=== PATIENT | male | born 1960 | race Caucasian/White ===

== ENCOUNTER 2019-08-18 06:23 | Emergency (ER) | payer OTHER ==
[2019-08-18] MEDS ORDERED: predniSONE 20 MG TABLET (UD) PO ONE (06:29)
--- NOTE | 2019-08-18 06:43 | PDOC ---
History of Present Illness - General Stated Complaint: DIFFICULTY BREATHING - History of Present Illness Initial Comments: The pt is a 59M w/ a history of COPD, CAD s/p stent, HTN, HLD who presents for evaluation of 30-40 minutes of difficulty breathing. He tried using his Ventolin inhaler this morning with little relief and decided to call EMS. They administered 1 duo-neb in the field w/ subsequent improvement. Currently the pt states he feels close to his baseline. He denies recent fevers/chills, chest pain, vision changes, LOBO, sensation changes, N/V Pt reports previous cardiac event requiring stent but his symptoms today do not feel nearly as severe as that occurrence. 08/18/19 06:31 Past History - Past Medical History Allergies/Adverse Reactions: Allergies Allergy/AdvReac Type Severity Reaction Status Date / Time No Known Allergies Allergy Verified 12/06/15 12:07 Home Medications: Ambulatory Orders Amlodipine Besylate [Norvasc -] 0 mg PO DAILY 12/06/15 Atorvastatin Calcium 0 mg PO HS 12/06/15 Olmesartan Medoxomil [Benicar -] 0 mg PO HS 12/06/15 Oxycodone HCl/Acetaminophen [Percocet 5-325 mg Tablet] 1 - 2 tab PO Q6H #20 tab MDD 4 12/06/15 levoFLOXacin [Levaquin -] 500 mg PO DAILY #14 tablet 12/06/15 metroNIDAZOLE [Flagyl -] 500 mg PO TID #30 tablet 12/06/15 Asthma: Yes Cardiac Disorders: Yes (mi) COPD: Yes HTN: Yes Hypercholesterolemia: Yes - Surgical History Cardiac Surgery: Yes (stent) - Immunization History Td Vaccination: Yes Immunization Up to Date: Yes - Psycho Social/Smoking Cessation Hx Smoking Status: Yes Smoking History: Current some day smoker Years of Tobacco Use: 40 Have you smoked in the past 12 months: Yes Number of Cigarettes Smoked Daily: 20 Cigars Per Day: 0 'Breaking Loose' booklet given: 08/14/12 Hx Alcohol Use: No Drug/Substance Use Hx: No Substance Use Type: None Hx Substance Use Treatment: No Review of Systems - Review of Systems Able to Perform ROS?: Yes Comments:: GENERAL/CONSTITUTIONAL: No fever or chills. No weakness HEAD, EYES, EARS, NOSE AND THROAT: No change in vision. No change in hearing. No sore throat CARDIOVASCULAR: +SOB; denies CP RESPIRATORY: Denies cough, hemoptysis GASTROINTESTINAL: No nausea, vomiting, diarrhea or constipation GENITOURINARY: No dysuria, frequency, or change in urination MUSCULOSKELETAL: No joint or muscle swelling or pain. No neck or back pain SKIN: No rash NEUROLOGIC: No headache, vertigo, loss of consciousness, or change in strength/ sensation ENDOCRINE: No increased thirst. No abnormal weight change HEMATOLOGIC/LYMPHATIC: No anemia, easy bleeding, or history of blood clots ALLERGIC/IMMUNOLOGIC: No hives or skin allergy 08/18/19 06:43 Is the patient limited Maldivian proficient: No *Physical Exam - Physical Exam GENERAL: Awake, alert, and oriented to person/place/time, in no acute distress HEAD: No signs of trauma, normocephalic, atraumatic EYES: PERRLA, EOMI, sclera anicteric, conjunctiva clear ENT: Hearing grossly normal, nares patent, oropharynx clear without exudates. Moist mucosa LUNGS: No distress, speaks in full sentences, mild b/l wheeze appreciated HEART: Regular rate and rhythm, normal S1 and S2, no murmurs appreciated, peripheral pulses normal and equal bilaterally ABDOMEN: Soft, nontender, normoactive bowel sounds. No guarding, no rebound EXTREMITIES: Normal inspection, Normal range of motion, no edema. No clubbing or cyanosis NEUROLOGICAL: Cranial nerves II through XII grossly intact. Normal speech, normal gait, no focal sensorimotor deficits SKIN: Warm, Dry 08/18/19 06:44 ED Treatment Course - LABORATORY CBC & Chemistry Diagram: 08/18/19 06:40 08/18/19 06:40 Medical Decision Making - Medical Decision Making The pt is a 59M w/ a history of COPD, CAD s/p stent (ASA), HTN, HLD who presents for evaluation of a COPD exacerbation ED Course Pt agreed to 1 set of labs and an ECG to evaluate ACS Will give duo-neb x2 and Prednisone 08/18/19 06:45 No anemia No leukocytosis 08/18/19 06:57 ECG and Trop pending Pt signed out to Dr. Huizar 08/18/19 07:05 Discharge - Discharge Information Problems reviewed: Yes Clinical Impression/Diagnosis: COPD exacerbation Condition: Improved - Admission No - Follow up/Referral Referrals: Edis Farmer MD [Staff Physician] - - Patient Discharge Instructions Patient Printed Discharge Instructions: DI for Chronic Obstructive Pulmonary Disease - Post Discharge Activity Work/Back to School Note: Back to Work
--- NOTE | 2019-08-18 06:47 | PDOC ---
Attending Attestation - Resident Resident Name: Rei Pena - ED Attending Attestation I have performed the following: I have examined & evaluated the patient, The case was reviewed & discussed with the resident, I agree w/resident's findings & plan, Exceptions are as noted - HPI HPI: 08/18/19 06:43 59 years old with past medical history significant for hypertension high cholesterol COPD active tobacco presents to the emergency department with COPD exacerbation not relieved by home nebs Called EMS received 1 DuoNeb in the field upon arrival to the emergency department does feel better still slightly wheezing Symptoms are mild to moderate persistent constant no exacerbating or alleviating factors Insert my ROS statement - Physicial Exam PE: 08/18/19 06:44 Vitals: Triage Vital signs reviewed General Appearance: No acute distress, well nourished well developed, Head: Atraumatic, Neck: Supple; no Nucal rigidity Chest Wall: Nontender Cardiac: Regular rate and rhythym, no murmurs, no rubs, no gallops, Lungs: End expiratory wheeze bilaterally Abdomen: Soft, non distended, normal bowel sounds, non tender to palpation Extremities: Full range of motion to all extremities, no cyanosis, clubbing, or edema Skin: Warm and dry, no rashes or lesions, no rash, no petechiae Psych: Normal mood, normal affect - Medical Decision Making 08/18/19 06:46 History and examination consistent with COPD exacerbation and active smoker however patient states the last time that he had severe shortness of breath ended up requiring a stent Patient had no chest pain this time symptoms were not nearly as severe his wheezing and shortness of breath have almost completely resolved Low suspicion for ACS but given patient's history will check EKG troponin duo nebs prednisone observe and reassess Dr. Maldonado to follow-up labs EKG and reevaluate patient.
[2019-08-18] MEDS ORDERED: predniSONE 20 MG TABLET (UD) ONE (06:49)
[2019-08-18] MEDS ORDERED: ALBUTEROL SO4 2.5/IPRATROPIUM 0.5 INH SOL 3 ML VIAL.NEB. NEB ONE (06:49)
[2019-08-18 06:50] LABS: BASO % 0.9 % (0-2.0); EOS % 5.1 % (0-4.5); HEMATOCRIT 36.7 % (35.4-49); HEMOGLOBIN 12.1 GM/dL (11.7-16.9); LYMPH % 19.7 % (8-40); MCH 28.9 pg (25.7-33.7); MCHC 32.9 g/dl (32.0-35.9); MEAN CELL VOLUME 87.8 fl (80-96); MEAN PLT VOLUME 7.3 fl (7.5-11.1); MONO % 5.6 % (3.8-10.2); NEUT % 68.7 % (42.8-82.8); PLATELET COUNT 313 K/MM3 (134-434); RBC 4.18 M/mm3 (4.00-5.60); RDW 14.8 % (11.9-15.9); WHITE BLOOD COUNT 7.5 K/mm3 (4.0-10.0)
[2019-08-18] MEDS: ALBUTEROL SO4 2.5/IPRATROPIUM 0.5 INH SOL 3 ML VIAL.NEB. NEB SCH ×2 (06:55→07:05)
[2019-08-18 07:25] LABS: ALBUMIN 3.5 g/dl (3.4-5.0); BILIRUBIN,TOTAL 0.2 mg/dL (0.2-1); BLOOD UREA NITROGEN 14.1 mg/dL (7-18); CALCIUM 8.3 mg/dL (8.5-10.1); CREATININE 0.9 mg/dL (0.55-1.3); TOT PROT 6.7 g/dl (6.4-8.2)
[2019-08-18 07:40] VITALS: BP 134/63; PULSE 83; TEMP 97.8; BMI 25.8
--- NOTE | 2019-08-18 07:43 | PDOC ---
*Physical Exam - Vital Signs Last Vital Signs Temp Pulse Resp BP Pulse Ox 97.8 F 83 18 134/63 96 08/18/19 06:46 08/18/19 06:46 08/18/19 06:46 08/18/19 06:46 08/18/19 06:46 ED Treatment Course - LABORATORY CBC & Chemistry Diagram: 08/18/19 06:40 08/18/19 06:40 - ADDITIONAL ORDERS Additional order review: Laboratory Results 08/18/19 08/18/19 06:40 06:39 Sodium 140 Potassium 4.0 Chloride 108 H Carbon Dioxide 26 Anion Gap 6 L BUN 14.1 Creatinine 0.9 Est GFR (CKD-EPI)AfAm 106.46 Est GFR (CKD-EPI)NonAf 91.86 Random Glucose 122 H Calcium 8.3 L Total Bilirubin 0.2 AST 17 ALT 22 Alkaline Phosphatase 99 Troponin I < 0.02 Total Protein 6.7 Albumin 3.5 08/18/19 06:40 RBC 4.18 MCV 87.8 MCHC 32.9 RDW 14.8 MPV 7.3 L Neutrophils % 68.7 Lymphocytes % 19.7 Monocytes % 5.6 Eosinophils % 5.1 H Basophils % 0.9 - Medications Given in the ED: ED Medications Discontinued Medications Generic Name Dose Route Start Last Admin Trade Name Freq PRN Reason Stop Dose Admin Albuterol/Ipratropium 1 amp 08/18/19 06:30 08/18/19 07:05 Duoneb - NEB 08/18/19 06:46 1 amp Q15M KUSHAL Administration Prednisone 40 mg 08/18/19 06:29 08/18/19 06:55 Deltasone - PO 08/18/19 06:30 40 mg ONCE ONE Administration Discharge - Discharge Information Clinical Impression/Diagnosis: COPD exacerbation Condition: Improved Disposition: HOME - Follow up/Referral Referrals: Edis Farmer MD [Staff Physician] - - Patient Discharge Instructions Patient Printed Discharge Instructions: DI for Chronic Obstructive Pulmonary Disease Additional Instructions: You were seen in the ER for shortness of breath You had labwork which was negative and you have a prescription for a steroid course Follow up with your Family Doctor within 1 week. Return to the ER if you experience worsening shortness of breath, chest pain, fevers or any other concerning symptoms. - Post Discharge Activity Work/Back to School Note: Back to Work
--- NOTE | 2019-08-18 10:04 | EKG ---
Test Reason : Blood Pressure : / mmHG Vent. Rate : 078 BPM Atrial Rate : 078 BPM P-R Int : 180 ms QRS Dur : 080 ms QT Int : 386 ms P-R-T Axes : 060 072 075 degrees QTc Int : 440 ms SINUS RHYTHM WITH PREMATURE ATRIAL COMPLEXES OTHERWISE NORMAL ECG WHEN COMPARED WITH ECG OF 06-DEC-2013 17:07, PREMATURE ATRIAL COMPLEXES ARE NOW PRESENT Confirmed by VIOLETTA GERBER MD ([id number]) on 08/18/2019 10:04:10 AM Referred By: Confirmed By:VIOLETTA GERBER MD
== END 2019-08-18 07:55 | disposition home or self-care (01) ==
LOC: JER 06:23
PROC: 3E0F7GC Introduction of Other Therapeutic Substance into Respiratory Tract, Via Natural or Artificial Opening (ICD-10-PCS; principal; 2019-08-18)
DX: J44.1 Chronic obstructive pulmonary disease with (acute) exacerbation (principal); I25.10 Atherosclerotic heart disease of native coronary artery without angina pectoris; I10 Essential (primary) hypertension; Z95.5 Presence of coronary angioplasty implant and graft; I25.2 Old myocardial infarction; E78.5 Hyperlipidemia, unspecified; E78.00 Pure hypercholesterolemia, unspecified; J45.998 Other asthma; F17.210 Nicotine dependence, cigarettes, uncomplicated; Z79.82 Long term (current) use of aspirin
CPT/HCPCS: 36415; 80053; 84484; 85025; 93005; 93010; 99283-25

== ENCOUNTER 2020-03-17 04:29 | Day surgery (SDC) | payer OTHER ==
[2020-03-15 17:26] VITALS: BMI 26.2
--- NOTE | 2020-03-16 17:28 | PREOP ---
DATE OF ADMISSION: 03/17/2020 ADMISSION DIAGNOSIS: Chronic so sinusitis with polyps, anosmia, and deviated nasal septum. HISTORY OF PRESENT ILLNESS: This 60-year-old male has had a long history of nasal sinus problems. He has undergone previous sinus surgery many years ago. He has had recurrence and now has obstruction, discomfort, drainage, and anosmia. Examination demonstrated deviation of the septum and marked nasal polyposis. He is now admitted for surgery. PAST MEDICAL HISTORY: Primary medical doctor is Dr. Aleksey Davila. He does have a history of COPD, high blood pressure and coronary artery disease. 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 He does smoke intermittently. He is on aspirin chronically, but he stopped this prior to surgery. ALLERGIES TO MEDICATIONS: None known. PRESENT MEDICATIONS: Include amlodipine, Advair Diskus, atorvastatin, Benicar, and ProAir p.r.n. PHYSICAL EXAMINATION: GENERAL: Patient is a well developed male in no distress. HEENT: Head is normal. Eyes are clear. Ears are unremarkable. Oral cavity and oropharynx are normal. The nasal septum is intact but deviated primarily to the left side. The nasal cavity shows bilateral nasal polyposis left greater than right with obstruction. DATA: Preoperative labs are pending. COVID-[address] scan of paranasal sinuses demonstrates chronic pansinusitis with polyps as well as deviation of the septum. IMPRESSION: Chronic pansinusitis with polyps and anosmia, deviated septum. PLAN: Endoscopic sinus surgery to address ethmoid maxillaries frontal and sphenoid sinuses, nasal polypectomy, possibly nasal septoplasty under general anesthesia. INFORMED CONSENT: Patient understands the indications, alternatives, nature of risks and benefits of proposed surgery, potential complications including but not limited to anesthesia, bleeding, infection, recurrence, numbness, hole in the septum, reduced sense of smell, eye injury or brain injury were discussed in detail. He understands and accepts these risks and wished to proceed with surgery. Questions answered fully. IRON DOUGLAS M.D. KATTY/[id number]
[2020-03-17] MEDS ORDERED: ONDANSETRON 4 MG/2 ML VIAL IVPUSH PRN (09:17)
[2020-03-17] MEDS ORDERED: ACETAMINOPHEN 325 MG TABLET (FP) PO PRN (09:17)
[2020-03-17] MEDS ORDERED: oxyCODONE HCL 5 MG TABLET PO PRN (09:17)
[2020-03-17] MEDS ORDERED: LIDOCAINE 1%/EPI 1:100000 (20 ML MULTI DOSE VIAL) ONE (09:18)
--- NOTE | 2020-03-17 09:36 | HP ---
History & Physical Update - History History: No Change - Physical Physical: No Change - Assessment Assessment: No Change - Plan Plan: No Change
[2020-03-17] MEDS ORDERED: PROPOFOL 20 ML ONE ×2 (09:37→10:10)
[2020-03-17] MEDS ORDERED: ceFAZolin SODIUM 1 GM VIAL ONE (10:01)
[2020-03-17] MEDS ORDERED: ceFAZolin SODIUM 1 GM VIAL IVPB ONE (10:03)
[2020-03-17] MEDS ORDERED: COCAINE HCL 4% TOPICAL SOLUTION 4 ML BOTTLE TP ONE (10:05)
[2020-03-17] MEDS ORDERED: LIDOCAINE 1%/EPI 1:100000 (20 ML MULTI DOSE VIAL) INF ONE ×2 (10:06)
[2020-03-17] MEDS ORDERED: HYDROmorphone HCl 2 MG/ML VIAL ONE (10:25)
[2020-03-17] MEDS ORDERED: DESFLURANE GAS 240 ML BOTTLE IH ONE (10:32)
[2020-03-17] MEDS ORDERED: DEXAMETHASONE SOD PHOSPHATE 4 MG/1 ML VIAL ONE ×2 (10:35→10:36)
[2020-03-17] MEDS ORDERED: BACITRACIN 15 GM TUBE TOPICAL OINTMENT ONE (11:41)
--- NOTE | 2020-03-17 12:13 | OP ---
Operative Note - Note: Operative Date: 03/17/20 ([id number]) Pre-Operative Diagnosis: chronic pansinusitis with polyposis, anosmia, nasal septal deviation Operation: bilateral endoscopic ethmoidectomy, anterior/posterior, bilateral endoscopic maxillary antrostomy with removal of tissue, bilateral endoscopic frontal sinus exploration, bilateral endoscopic sphenoidotomy,image guidance Findings: chronic pansinusitis with polyps deviated septum to left synechia right middle turbinate to septum, right middle turbinate to inferior turbinate after polypectomy markedly improved left nasal airway even with deviated septum, septoplasty deferred in PACU EOMI, conjunctivae clear Implants: none Post-Operative Diagnosis: Same as Pre-op Surgeon: Azeem Chavez Anesthesiologist/ROTATING FIELD ASSEMBLER: Farida Louise Anesthesia: General Specimens Removed: left nasal polyp and ethmoid tissue. right nasal polyp and ethmoid tissue. right and left ethmoid tissue (suction trap, from microdebrider) Estimated Blood Loss (mls): 30 Blood Volume Replaced (mls): 0 Fluid Volume Replaced (mls): 800 Operative Report Dictated: Yes
[2020-03-17] MEDS ORDERED: ONDANSETRON 4 MG/2 ML VIAL ONE (12:49)
[2020-03-17] MEDS ORDERED: oxyCODONE HCL 5 MG TABLET ONE (13:37)
--- NOTE | 2020-03-17 13:58 | OP ---
DATE OF OPERATION: 03/17/2020 PREOPERATIVE DIAGNOSIS: Chronic pansinusitis with polyposis and anosmia, nasal septal deviation. POSTOPERATIVE DIAGNOSIS: Chronic pansinusitis with polyposis and anosmia, nasal septal deviation. PROCEDURE: 1. Bilateral endoscopic ethmoidectomy anterior and posterior. 2. Bilateral endoscopic maxillary antrostomy with removal of tissue. 3. Bilateral endoscopic frontal sinus exploration. 4. Bilateral endoscopic sphenoidotomy. 5. Image guidance. SURGEON: Iron Chavez MD ANESTHESIOLOGIST: Farida Louise, REF-DO ANESTHESIA: General via endotracheal tube. INDICATIONS: This 60-year-old male has had a long history of nasal and sinus problems. He had previous surgery. For many years he has had nasal obstruction, altered sense of smell and drainage. He also has sinus pressure and intermittent infections. He had been treated with numerous antibiotics as well as oral steroids and topical steroid medications. Examination demonstrates bilateral nasal polyps and deviation of the septum. CT scan demonstrates chronic pansinusitis with polyposis. He is now brought to surgery for treatment. FINDINGS: Chronic pansinusitis with polyposis, deviated septum to the left. PROCEDURE: Patient was brought to the operating room and placed on the operating table in the supine position. General endotracheal anesthesia was induced to a satisfactory level. He was prepped and draped in the usual fashion for surgery. His CT scan data was uploaded to the [employer] image guidance system. He was registered and image guidance was used intermittently throughout the case to identify anatomic position and guide dissection. Lidocaine 1% with epinephrine 1:100,000 was infiltrated in the nasal septum. Cocaine 4% was placed within the nasal cavities for decongestion. Nasal endoscopy was performed with a 0-degree telescope. The nasal septum had deviation to the left. Significant nasal polyposis was seen in both middle meatuses as well as both inferior nasal cavities especially posterior. The nasopharynx was visualized and was patent. An adenoidectomy scar was present. No pus was seen on either side. Lidocaine 1% with epinephrine 1:100,000 was infiltrated into the middle meatal polyps as well as lateral nasal martinez and middle turbinates. Additional cocaine 4% was packed within the middle meatuses. The left paranasal sinuses were first addressed. Middle meatal polyps were removed with the ethmoid forceps. Significant polypoid change at the middle turbinate was identified. Careful dissection was used with the [employer] microdebrider with guidance. Anterior ethmoidectomy was first performed followed by posterior ethmoidectomy. The lamina papyracea and the fovea ethmoidalis were preserved. The face of the sphenoid was encountered. Dissection then went toward the natural ostium of the sphenoid which was then entered and enlarged. Thick mucus was found, but no pus. Next, the additional tissue was removed to create a left middle meatal antrostomy. Thick mucus was suctioned. Finally, the left frontal recess was explored. The 70-degree telescope and giraffe forceps were used to remove polypoid tissue from the frontal recess. The frontal ostium was identified. The frontal seeker was passed into the frontal sinus and its position confirmed by image guidance. Attention was then turned toward the right paranasal sinuses. Again, the middle meatal polyps were removed. Polypoid change was also identified on the middle meatus and this was shaved down. Additional polyps in the inferior nasal cavity and from the sphenoid recess were removed. Ethmoidectomy was then performed with the [employer] microdebrider. Anterior and then posterior ethmoidectomy was performed. Again, the lamina papyracea and the fovea ethmoidalis were preserved. The face of the sphenoid sinus was identified. Dissection then went toward the natural ostium which was then identified and enlarged with the microdebrider. Thick mucus was found, but no pus. Moving more anteriorly the frontal recess was then addressed. This was visualized with the 70-degree scope and dissection performed with the 70-degree giraffe forceps. The frontal recess was opened and the suction tip could be passed through the ostium into the right frontal sinus, again confirmed by image guidance. Finally, the right maxillary sinus was addressed. Tissue was removed from the middle meatus and an antrostomy was created. Thick mucus was aspirated, but again no pus was identified. Final inspection demonstrated open ethmoid, sphenoid, frontal and maxillary sinuses. Minimal oozing was noted. The nasal septum, although septal deviation was present, was left untouched. Significant improvement in the left nasal airway has been accomplished by polypectomy and there were both inferior and superior airways that were now patent. NasoPore dressings were placed in each ethmoid sinus. Folded Telfa gauze coated with antibiotic ointment and joined with a silk suture was placed in the inferior nasal cavities. A throat pack placed at the beginning of the case was removed. Stomach was suctioned of a small amount of fluid. Patient tolerated the procedure well. He was then awakened from general anesthesia and transferred to the PACU in stable condition. Estimated blood loss was 30 mL. He received crystalloid during the procedure. Specimens include left nasal polyp and ethmoid tissue, right nasal poly and ethmoid tissue and right and left ethmoid tissue from suction trap. There were no complications. Ocular examination in the PACU showed full extraocular movements and clear conjunctivae. IRON CHAVEZ M.D. KATTY/[id number]
[2020-03-17 14:14] VITALS: BP 135/71; PULSE 80; TEMP 97.3
--- NOTE | 2020-03-19 17:12 | PATH ---
Surgical Pathology Report Patient Name: TISH YANG [facility]. Rec. #: [id number] /Age/Gender: 1960 (Age: 60) / M Account: [id number] Location: [facility] SURGICAL Taken: 03/17/2020 Received: 03/17/2020 Reported: 03/19/2020 Physicians: Azeem Chavez M.D. Specimen(s) Received A: LEFT NASAL POLYP AND ETHMOID TISSUE B: RIGHT NASAL POLYP AND ETHMOID TISSUE C: RIGHT AND LEFT ETHMOID TISSUE Clinical History Deviated septum, chronic maxillary sinusitis Final Diagnosis A. LEFT NASAL POLYP AND ETHMOID TISSUE, EXCISION: INFLAMMATORY POLYPS. CHRONIC SINUSITIS. PORTIONS OF BONE WITH NO SIGNIFICANT PATHOLOGIC CHANGE. B. RIGHT NASAL POLYPS AND ETHMOID TISSUE, EXCISION: INFLAMMATORY POLYPS. CHRONIC SINUSITIS. C. RIGHT AND LEFT ETHMOID TISSUE, EXCISION: CHRONIC SINUSITIS. SEPARATE FRAGMENTS OF INFLAMMATORY POLYP. Electronically Signed Nirmal Elliott M.D. Gross Description A. Received in formalin labeled "left nasal polyp and ethmoid tissue," is a 4.0 x 3.3 x 0.3 cm aggregate of multiple manrique, irregular to polypoid portions of soft tissue admixed with cartilage, possible bone and blood clot. The specimen is entirely submitted in 3 cassettes as follows: 1-2-soft tissue; 3-cartilage and possible bone, following decalcification. B. Received in formalin labeled "right nasal polyp and ethmoid tissue," is a 1.8 x 1.4 x 0.3 cm aggregate of multiple manrique, irregular to polypoid portions of soft tissue. The specimen is entirely submitted in one cassette. C. Received in formalin labeled "right and left ethmoid tissue," is a 3.5 x 2.8 x 0.3 cm aggregate of manrique soft tissue fragments admixed with blood clot. A bilingual sales representative portion is submitted in one cassette. 03/18/2020 [facility]03/18/2020
== END 2020-03-17 14:10 | disposition home or self-care (01) ==
LOC: JASU-SURG 04:29
PROVIDERS: ATTEND Otolaryngology
PROC: 09CW8ZZ Extirpation of Matter from Right Sphenoid Sinus, Via Natural or Artificial Opening Endoscopic (ICD-10-PCS; 2020-03-17)
PROC: 09BM8ZZ Excision of Nasal Septum, Via Natural or Artificial Opening Endoscopic (ICD-10-PCS; 2020-03-17)
PROC: 09CX8ZZ Extirpation of Matter from Left Sphenoid Sinus, Via Natural or Artificial Opening Endoscopic (ICD-10-PCS; principal; 2020-03-17 10:00)
DX: J32.4 Chronic pansinusitis (principal); J34.2 Deviated nasal septum; J33.9 Nasal polyp, unspecified; R43.0 Anosmia; I10 Essential (primary) hypertension; I25.10 Atherosclerotic heart disease of native coronary artery without angina pectoris; J44.9 Chronic obstructive pulmonary disease, unspecified; Z95.5 Presence of coronary angioplasty implant and graft
CPT/HCPCS: 88304-TC; 88311-TC; 94760

== ENCOUNTER 2020-05-31 04:29 | Day surgery (SDC) | payer OTHER ==
--- OUTSIDE RECORDS SUMMARY | 2020-05-21 15:54 | XMS ---
:1960 Author Organization [facility] Support Name Relationship Address Phone YEIMY FITCH Unavailable [address] [place] [address] SIVA NAJERA [address] [facility] [phone] [place] [address] Re-disclosure Warning The records that you are about to access may contain information from federally- assisted alcohol or drug abuse programs. If such information is present, then the following federally mandated warning applies: This information has been disclosed to you from records protected by federal confidentiality rules (42 CFR part 2). The federal rules prohibit you from making any further disclosure of this information unless further disclosure is expressly permitted by the written consent of the person to whom it pertains or as otherwise permitted by 42 CFR part 2. A general authorization for the release of medical or other information is NOT sufficient for this purpose. The Federal rules restrict any use of the information to criminally investigate or prosecute any alcohol or drug abuse patient.The records that you are about to access may contain highly sensitive health information, the redisclosure of which is protected by Article 27-F of the [facility] Public Health law. If you continue you may haveaccess to information: Regarding HIV / AIDS; Provided by facilities licensed or operated by the [facility] Office of Mental Health; or Provided by the [facility] Office for People With Developmental Disabilities. If such information is present, then the following [facility] mandated warning applies: This information has been disclosed to you from confidential records which are protected by state law. State law prohibits you from making any further disclosure of this information without the specific written consent of the person to whom it pertains, or as otherwise permitted by law. Any unauthorized further disclosure in violation of state law may result in a fine or prison sentence or both. A general authorization for the release of medical or other information is NOT sufficient authorization for further disclosure. Insurance Providers Payer name Policy type Policy ID Covered Covered green party's Policy P blanie / Coverage green party ID relationship to [facility] [employer] ormation type jerome [place] [id number] [address] [facility] [id number] 2 HEALTH PLANS Results ID Date Data Source [id number] 2020 08:15:00 AM EDT [facility] Name Value Range Interpretation Description Data Sup porting Code Source(s) Document(s ) SARS [facility] coronavirus 2 RNA This lab was ordered by [facility] and reported by [facility]. ID Date Data Source [id number] 11/07/2019 12:00:00 AM EDT [facility] Name Value Range Interpretation Code Description Data Gege rce(s) Supporting Document(s ) [facility] XXX MARY+probe- Imp This lab was ordered by [facility] and reported by [employer] [facility]. Procedure
[2020-05-28 10:34] VITALS: BMI 25.8
--- OUTSIDE RECORDS SUMMARY | 2020-05-31 04:32 | XMS ---
:[address] [facility] Support Name Relationship Address Phone BKD Unavailable [address] [place] [address] YEIMY TROPER Unavailable [address] [place] [address] SIVA NAJERA [address] [facility] [place] [address] Re-disclosure Warning The records that you are [...] is protected by Article [address]-F of the [facility] Public Health law. If you continue you may haveaccess to information: Regarding HIV / AIDS; Provided by facilities licensed or operated by the [facility] Office of Mental Health; or Provided by the [facility] Office for People With Developmental Disabilities. If such information is present, then the following [facility] mandated warning applies: This information has been [...] law may result in a fine or senior care sentence or both. A general authorization for the release of medical or other information is NOT sufficient authorization for further disclosure. Insurance Providers Payer name Policy type Policy ID Covered Covered green party's Policy P blaine / Coverage green party ID relationship to [facility] Inf ormation type jerome [place] [id number] S [id number] [address] [facility] [id number] 2 HEALTH PLANS Results ID Date Data Source [id number] 05/27/2020 04:45:00 PM EDT [facility] Name Value Range Interpretation Description Data Sup porting Code Source(s) Document(s ) SARS [facility] coronavirus 2 RNA This lab was ordered by [facility] and reported by [facility]. ID Date Data Source [id number] 2020 08:15:00 AM EDT [facility] Name Value Range Interpretation Description Data Sup porting Code Source(s) Document(s ) SARS [facility] coronavirus 2 RNA This lab was ordered by [facility] and reported by [facility]. ID Date Data Source [id number] 11/07/2019 12:00:00 AM EDT [facility] Name Value Range Interpretation Code Description Data Gege rce(s) Supporting Document(s ) 2019-nCoV [facility] RNA XXX MARY+probe- Imp This lab was ordered by [facility] and reported by [employer] Procedure
[2020-05-31] MEDS ORDERED: MIDAZOLAM HCL 2 MG/2 ML SINGLE DOSE VIAL ONE ×2 (10:41→11:13)
[2020-05-31] MEDS ORDERED: PROPOFOL 20 ML ONE (11:14)
--- NOTE | 2020-05-31 12:01 | OP ---
Operative Note - Note: Operative Date: 05/31/20 Pre-Operative Diagnosis: Lt renal stone Operation: Left ESWL Findings: 7 mm mid pole Leftb renal stone Post-Operative Diagnosis: Same as Pre-op Surgeon: Jose May Anesthesia: Regional Estimated Blood Loss (mls): 0 Operative Report Dictated: Yes
[2020-05-31 12:53] VITALS: TEMP 97.3
[2020-05-31 12:57] VITALS: BP 120/64; PULSE 81
--- NOTE | 2020-05-31 19:01 | OP ---
DATE OF OPERATION: 05/31/2020 PREOPERATIVE DIAGNOSIS: Left renal stone. POSTOPERATIVE DIAGNOSIS: Left renal stone. PROCEDURE: Left extracorporeal shockwave lithotripsy. ATTENDING: Jeanie May M.D. ANESTHESIA: Fractional. DESCRIPTION OF PROCEDURE: Patient was brought in the operating room, placed in a supine position on the operating room table. Ultrasonography and fluoroscopy were performed. A 7-mm left mid pole stone was identified. Anesthesia and preoperative antibiotics were then administered. Shockwave lithotripsy was then performed. 2500 impulses at 17 joules of power were administered to the stone with excellent fragmentation of the stone noted under realtime ultrasonography and fluoroscopy. JEANIE GARCIA M.D. [id number]
== END 2020-05-31 13:10 | disposition home or self-care (01) ==
LOC: JASU-SURG 04:29
PROVIDERS: ATTEND Urology
PROC: 0TF4XZZ Fragmentation in Left Kidney Pelvis, External Approach (ICD-10-PCS; principal; 2020-05-31 11:00)
DX: N20.0 Calculus of kidney (principal)

== ENCOUNTER 2020-11-15 04:43 | Day surgery (SDC) | payer OTHER ==
[2020-11-10 13:44] VITALS: BMI 25.8
[2020-11-15] MEDS ORDERED: LIDOCAINE HCL/PF 2% SDV 5ML VIAL ONE (09:27)
[2020-11-15] MEDS ORDERED: PROPOFOL 20 ML ONE (09:27)
[2020-11-15] MEDS ORDERED: MIDAZOLAM HCL 2 MG/2 ML SINGLE DOSE VIAL ONE (09:27)
[2020-11-15] MEDS ORDERED: ALBUTEROL SO4 HFA INHALER IH ONE (09:45)
[2020-11-15] MEDS ORDERED: GENTAMICIN SO4 80 MG/2 ML VIAL ONE (09:45)
[2020-11-15] MEDS ORDERED: GENTAMICIN 80MG PREMIX BAG IVPB ONE (09:50)
[2020-11-15] MEDS ORDERED: ceFAZolin SODIUM 1 GM VIAL IVPB ONE (09:50)
[2020-11-15] MEDS ORDERED: oxyCODONE HCL 5 MG TABLET PO PRN ×2 (10:51)
[2020-11-15] MEDS ORDERED: ONDANSETRON 4 MG/2 ML VIAL IVPUSH PRN (10:51)
[2020-11-15] MEDS ORDERED: LACTATED RINGERS SOLUTION 1,000 ML IV SCH (11:00)
[2020-11-15 14:46] VITALS: BP 128/70; PULSE 65; TEMP 98
== END 2020-11-15 14:48 | disposition home or self-care (01) ==
LOC: JASU-SURG 04:43
PROVIDERS: ATTEND Urology
PROC: 0T7D8ZZ Dilation of Urethra, Via Natural or Artificial Opening Endoscopic (ICD-10-PCS; 2020-11-15)
PROC: BT14YZZ Fluoroscopy of Kidneys, Ureters and Bladder using Other Contrast (ICD-10-PCS; principal; 2020-11-15 09:30)
PROC: BT14YZZ Fluoroscopy of Kidneys, Ureters and Bladder using Other Contrast (ICD-10-PCS; 2020-11-15 09:30)
DX: N32.1 Vesicointestinal fistula (principal); N35.919 Unspecified urethral stricture, male, unspecified site; N13.5 Crossing vessel and stricture of ureter without hydronephrosis
CPT/HCPCS: 76000-TC-FY; 94760

== ENCOUNTER 2020-12-16 20:35 | Emergency (ER) | payer OTHER ==
[2020-12-16 21:06] VITALS: BMI 26.5
[2020-12-16] MEDS ORDERED: LACTATED RINGERS SOLUTION 1000 ML INFUS.BAG IV ONE (22:01)
[2020-12-16] MEDS ORDERED: morphine CARPU-JECT 2 MG/1 ML DISP.SYRIN IVPUSH ONE (23:07)
[2020-12-16 23:10] LABS: BASO % 0.1 % (0-2.0); EOS % 0.1 % (0-4.5); HEMOGLOBIN 10.7 GM/dL (11.7-16.9); LYMPH % 4.6 % (8-40); MCH 29.2 pg (25.7-33.7); MCHC 33.5 g/dl (32.0-35.9); MEAN CELL VOLUME 87.2 fl (80-96); MEAN PLT VOLUME 7.6 fl (7.5-11.1); MONO % 4.5 % (3.8-10.2); NEUT % 90.7 % (42.8-82.8); PLATELET COUNT 195 K/MM3 (134-434); RBC 3.67 M/mm3 (4.00-5.60); RDW 16.4 % (11.9-15.9)
[2020-12-16] MEDS ORDERED: MORPHINE SULFATE 2 MG/ML VIAL ONE (23:12)
[2020-12-16 23:16] LABS: INR 0.96 (0.83-1.09); PROTHROMBIN TIME (PATIENT) 11.8 SEC (9.7-13.0)
[2020-12-16 23:19] LABS: ACTIVATED PTT 25.8 SECONDS (25.2-36.5)
[2020-12-16 23:32] LABS: CALCIUM 8.2 mg/dL (8.5-10.1)
[2020-12-16 23:33] LABS: ALBUMIN 2.8 g/dl (3.4-5.0); BLOOD UREA NITROGEN 37.3 mg/dL (7-18)
[2020-12-16 23:36] LABS: CREATININE 1.3 mg/dL (0.55-1.3)
[2020-12-16 23:38] LABS: BILIRUBIN,TOTAL 0.6 mg/dL (0.2-1); TOT PROT 6.1 g/dl (6.4-8.2)
[2020-12-17 02:03] VITALS: BP 118/72; PULSE 81; TEMP 98.1
== END 2020-12-17 02:05 | disposition home or self-care (01) ==
LOC: JER 20:35
PROC: 3E033NZ Introduction of Analgesics, Hypnotics, Sedatives into Peripheral Vein, Percutaneous Approach (ICD-10-PCS; principal; 2020-12-16)
DX: T83.091A Other mechanical complication of indwelling urethral catheter, initial encounter (principal)
CPT/HCPCS: 36415; 80053; 85025; 85610; 85730; 99284-25

== ENCOUNTER 2021-10-04 01:34 | Inpatient (IN) | payer OTHER ==
[2021-10-04] MEDS ORDERED: KETAMINE HCL 200 MG/20 ML VIAL ONE (01:36)
[2021-10-04] MEDS ORDERED: RAPID SEQUENCE INTUBATION KIT NR ONE (01:36)
[2021-10-04] MEDS ORDERED: KETAMINE HCL 200 MG/20 ML VIAL IVPUSH ONE ×2 (01:42→02:03)
[2021-10-04] MEDS ORDERED: MIDAZOLAM IN 0.9 % SOD.CHLORID 1 MG/1 ML PLAST..BAG ONE (01:42)
[2021-10-04] MEDS ORDERED: ALBUTEROL SO4 2.5/IPRATROPIUM 0.5 INH SOL 3 ML VIAL.NEB. NEB ONE (01:44)
[2021-10-04] MEDS ORDERED: MIDAZOLAM IN 0.9 % SOD.CHLORID 100 MG/100 ML PLAST..BAG IVPB SCH ×3 (01:45→02:21)
[2021-10-04] MEDS ORDERED: FENTANYL NS IVPB 500 MCG/100 ML BAG IVPB SCH ×2 (01:45→01:46)
[2021-10-04] MEDS ORDERED: MAGNESIUM SULF 50% (8.12 MEQ/2 ML-1 GM VIAL) IVPB ONE (01:48)
[2021-10-04] MEDS ORDERED: ROCURONIUM BROMIDE 50 MG/5 ML VIAL IVPUSH ONE (02:03)
[2021-10-04] MEDS ORDERED: MAGNESIUM 1GM/D5W - 1 GM/100 ML IVPB IVPB ONE (02:04)
[2021-10-04 02:05] LABS: BASO % 1.1 % (0-2.0); EOS % 7.9 % (0-4.5); HEMATOCRIT 38.1 % (35.4-49); LYMPH % 23.5 % (8-40); MCH 27.1 pg (25.7-33.7); MCHC 31.5 g/dl (32.0-35.9); MONO % 10.2 % (3.8-10.2); NEUT % 57.3 % (42.8-82.8); PLATELET COUNT 334 10^3/uL (134-434); RBC 4.43 M/mm3 (4.00-5.60); RDW 17.5 % (11.9-15.9); WHITE BLOOD COUNT 11.3 K/mm3 (4.0-10.0)
[2021-10-04] MEDS ORDERED: MIDAZOLAM HCL 2 MG/2 ML SINGLE DOSE VIAL IVPUSH ONE (02:21)
[2021-10-04] MEDS: MIDAZOLAM IN 0.9 % SOD.CHLORID 100 MG/100 ML PLAST..BAG IVPB SCH ×2 (02:38→13:30)
[2021-10-04 02:40] LABS: BLOOD UREA NITROGEN 24.8 mg/dL (7-18); CALCIUM 8.2 mg/dL (8.5-10.1)
[2021-10-04 02:41] LABS: ALBUMIN 3.6 g/dl (3.4-5.0)
[2021-10-04] MEDS ORDERED: MIDAZOLAM HCL 5 MG/1 ML Single Dose Vial IVPUSH ONE (02:42)
[2021-10-04 02:44] LABS: CREATININE 1.3 mg/dL (0.55-1.3)
[2021-10-04 02:45] LABS: TOT PROT 6.4 g/dl (6.4-8.2)
[2021-10-04 02:46] LABS: BILIRUBIN,TOTAL 0.3 mg/dL (0.2-1)
[2021-10-04 02:48] LABS: N-TERMINAL BNP 108.1 pg/ml (5-125)
[2021-10-04] MEDS: FENTANYL NS IVPB 500 MCG/100 ML BAG IVPB SCH ×2 (02:48→09:33)
[2021-10-04 03:18] LABS: INR 0.9 (0.83-1.09); PROTHROMBIN TIME (PATIENT) 10.3 SEC (9.7-13.0)
[2021-10-04] MEDS ORDERED: ALBUTEROL SO4 HFA INHALER IH PRN (03:58)
[2021-10-04 04:03] LABS: ARTERIAL BLD GAS O2 SATURATION 99.5 % (95-98); ARTERIAL BLOOD GAS BASE EXCESS -5.3 mmol/L (-2-2); ARTERIAL BLOOD GAS PO2 287.5 mmHg (80-100)
[2021-10-04 04:16] LABS: ALLENS TEST POSITIVE; ARTERIAL BLOOD GAS pH 7.186 (7.350-7.450); VENT MODE A/C; VENT RATE 16
[2021-10-04 04:29] LABS: EPI CELLS >36 /uL (0-25.1); HYALINE CASTS 7 /uL (0-3.1); PH,URINE 6.5 (5.0-8.0); URINE APPEARANCE CLEAR; URINE BACTERIA 138 /uL (0-1359); URINE BILIRUBIN NEGATIVE (NEGATIVE); URINE COLOR YELLOW; URINE GLUCOSE (UA) NEGATIVE (NEGATIVE); URINE KETONE NEGATIVE (NEGATIVE); URINE LEUK ESTERASE NEGATIVE (NEGATIVE); URINE NITRITE NEGATIVE (NEGATIVE); URINE PROTEIN 3+ (NEGATIVE); URINE RBC 14 /uL (0-23.9); URINE UROBILINOGEN 0.2 mg/dL (0.2-1.0); URINE WBC 11 /uL (0-25.8)
[2021-10-04] MEDS ORDERED: SODIUM CHLORIDE 500 ML IV STA ×2 (04:39→06:51)
[2021-10-04] MEDS ORDERED: LACTATED RINGERS SOLUTION 1,000 ML/1,000 ML INFUS.BAG IV STA (04:57)
[2021-10-04] MEDS ORDERED: LACTATED RINGERS SOLUTION 1,000 ML/1,000 ML INFUS.BAG IV SCH (05:00)
[2021-10-04] MEDS ORDERED: cefTRIAXone SODIUM 1 GM VIAL ONE ×2 (05:30→10:45)
[2021-10-04] MEDS ORDERED: DEXTROSE 5%-WATER - 50 ML IVPB ONE ×2 (05:31→10:45)
[2021-10-04] MEDS: CEFTRIAXONE 1 GM in DEXTROSE 5%-WATER - 50 ML IVPB SCH ×2 (05:32→10:47)
[2021-10-04] MEDS: methylPREDNISolone NA SUCC 40 MG/1 ML VIAL IVPUSH SCH ×4 (05:32→22:05)
[2021-10-04 06:02] LABS: ARTERIAL BLD GAS O2 SATURATION 98.4 % (95-98); ARTERIAL BLOOD GAS BASE EXCESS -4.9 mmol/L (-2-2); ARTERIAL BLOOD GAS PO2 138.4 mmHg (80-100); ARTERIAL BLOOD GAS pH 7.266 (7.350-7.450)
[2021-10-04 06:03] LABS: ALLENS TEST POSITIVE; VENT MODE A/C
[2021-10-04 06:04] LABS: VENT RATE 22
[2021-10-04 07:32] LABS: HEMATOCRIT 34.9 % (35.4-49); MCH 27.1 pg (25.7-33.7); MCHC 31.5 g/dl (32.0-35.9); MEAN CELL VOLUME 85.9 fl (80-96); MEAN PLT VOLUME 8.3 fl (7.5-11.1); PLATELET COUNT 289 10^3/uL (134-434); RBC 4.07 M/mm3 (4.00-5.60); RDW 17.4 % (11.9-15.9); WHITE BLOOD COUNT 13.8 K/mm3 (4.0-10.0)
[2021-10-04 07:50] LABS: CALCIUM 7.8 mg/dL (8.5-10.1)
[2021-10-04 07:51] LABS: BLOOD UREA NITROGEN 26.9 mg/dL (7-18)
[2021-10-04 07:54] LABS: ALBUMIN 3.3 g/dl (3.4-5.0); CREATININE 1.3 mg/dL (0.55-1.3)
[2021-10-04 07:56] LABS: BILIRUBIN,TOTAL 0.3 mg/dL (0.2-1); MAGNESIUM 2.4 mg/dL (1.8-2.4); PHOSPHOROUS 4.8 mg/dL (2.5-4.9)
[2021-10-04] MEDS ORDERED: ALBUTEROL SO4 2.5/IPRATROPIUM 0.5 INH SOL 3 ML VIAL.NEB. NEB SCH (08:00)
[2021-10-04] MEDS: SODIUM CHLORIDE 1,000 ML IV SCH ×2 (08:01→23:00)
[2021-10-04 09:43] LABS: ANISOCYTOSIS 0; HELMET CELLS 0; HOWELL-JOLLY BODIES 0; MACROCYTOSIS 0; OVALOCYTE 0; ROULEAU 0; SICKELED CELLS 0; TARGET CELLS 0; TEAR DROP CELLS 0; TOXIC GRANULATION 0
[2021-10-04 09:55] LABS: NEUT % 12.4 % (42.8-82.8)
[2021-10-04] MEDS ORDERED: ENOXAPARIN NA (PORCINE) 40 MG/0.4 ML DISP.SYRIN SQ SCH (10:00)
[2021-10-04] MEDS ORDERED: SODIUM CHLORIDE 0.9% 500 ML INFUS.BAG IV SCH (10:45)
[2021-10-04] MEDS: MUPIROCIN 2% TOPICAL OINTMENT FOR DECOLONIZATION NS SCH ×2 (10:47→21:43)
[2021-10-04] MEDS: PANTOPRAZOLE SODIUM 40 MG VIAL IVPUSH SCH (10:47)
[2021-10-04] MEDS: CHLORHEXIDINE GLUCONATE 4% CLEANSER FOR DECOLONIZATION TP SCH (21:44)
[2021-10-04] MEDS: ENOXAPARIN NA (PORCINE) 80 MG/0.8 ML DISP.SYRIN SQ SCH (22:04)
[2021-10-05] MEDS: methylPREDNISolone NA SUCC 40 MG/1 ML VIAL IVPUSH SCH ×4 (02:26→22:02)
[2021-10-05 07:02] LABS: HEMATOCRIT 35.3 % (35.4-49); HEMOGLOBIN 11.1 GM/dL (11.7-16.9); MCH 27.5 pg (25.7-33.7); MCHC 31.5 g/dl (32.0-35.9); MEAN CELL VOLUME 87.2 fl (80-96); MEAN PLT VOLUME 8.3 fl (7.5-11.1); PLATELET COUNT 271 10^3/uL (134-434); RBC 4.05 M/mm3 (4.00-5.60); RDW 17.7 % (11.9-15.9); WHITE BLOOD COUNT 10.8 K/mm3 (4.0-10.0)
[2021-10-05] MEDS ORDERED: SODIUM CHLORIDE 1,000 ML IV SCH (07:12)
[2021-10-05 07:19] LABS: CALCIUM 7.5 mg/dL (8.5-10.1)
[2021-10-05 07:20] LABS: BLOOD UREA NITROGEN 40.3 mg/dL (7-18)
[2021-10-05 07:23] LABS: CREATININE 1.3 mg/dL (0.55-1.3)
[2021-10-05 08:10] LABS: SARS-CoV-2 NAA Not Detected (Not Detected)
[2021-10-05] MEDS: ALBUTEROL SO4 2.5/IPRATROPIUM 0.5 INH SOL 3 ML VIAL.NEB. NEB SCH ×4 (08:30→20:00)
[2021-10-05 09:42] LABS: ANISOCYTOSIS 1+; MACROCYTOSIS 0
[2021-10-05] MEDS: FENTANYL NS IVPB 500 MCG/100 ML BAG IVPB SCH (09:45)
[2021-10-05] MEDS ORDERED: SODIUM CHLORIDE 100 ML IVPB ONE (10:09)
[2021-10-05] MEDS: PANTOPRAZOLE SODIUM 40 MG VIAL IVPUSH SCH (10:19)
[2021-10-05] MEDS: CEFTRIAXONE 2 GM in SODIUM CHLORIDE 100 ML IVPB SCH (10:19)
[2021-10-05] MEDS: SODIUM ZIRCONIUM CYCLOSILICATE (LOKELMA) 5 GM PACKET PO SCH (10:19)
[2021-10-05] MEDS: ENOXAPARIN NA (PORCINE) 80 MG/0.8 ML DISP.SYRIN SQ SCH ×2 (10:20→22:56)
[2021-10-05] MEDS: MUPIROCIN 2% TOPICAL OINTMENT FOR DECOLONIZATION NS SCH ×2 (10:20→22:56)
[2021-10-05] MEDS: AZITHROMYCIN IVPB 500 MG/250 ML BAG IVPB SCH (10:26)
[2021-10-05 10:57] LABS: ARTERIAL BLD GAS O2 SATURATION 81.9 % (95-98); ARTERIAL BLOOD GAS BASE EXCESS -7.2 mmol/L (-2-2); ARTERIAL BLOOD GAS pH 7.232 (7.350-7.450)
[2021-10-05 11:01] LABS: ALLENS TEST POSITIVE
[2021-10-05 11:03] LABS: VENT MODE A/C; VENT RATE 16
[2021-10-05] MEDS: MIDAZOLAM IN 0.9 % SOD.CHLORID 100 MG/100 ML PLAST..BAG IVPB SCH (14:32)
[2021-10-05] MEDS: LACTATED RINGERS SOLUTION 1,000 ML/1,000 ML INFUS.BAG IV SCH (19:02)
[2021-10-05] MEDS: CHLORHEXIDINE GLUCONATE 4% CLEANSER FOR DECOLONIZATION TP SCH (22:56)
[2021-10-06] MEDS: methylPREDNISolone NA SUCC 40 MG/1 ML VIAL IVPUSH SCH ×4 (02:45→21:26)
[2021-10-06 06:56] LABS: HEMATOCRIT 33.1 % (35.4-49); HEMOGLOBIN 10.7 GM/dL (11.7-16.9); MCH 27.8 pg (25.7-33.7); MCHC 32.2 g/dl (32.0-35.9); MEAN CELL VOLUME 86.3 fl (80-96); MEAN PLT VOLUME 8.1 fl (7.5-11.1); PLATELET COUNT 241 10^3/uL (134-434); RBC 3.84 M/mm3 (4.00-5.60); RDW 18.3 % (11.9-15.9); WHITE BLOOD COUNT 10.6 K/mm3 (4.0-10.0)
[2021-10-06 07:13] LABS: CALCIUM 7.4 mg/dL (8.5-10.1)
[2021-10-06 07:14] LABS: BLOOD UREA NITROGEN 47.2 mg/dL (7-18)
[2021-10-06 07:17] LABS: CREATININE 1.2 mg/dL (0.55-1.3)
[2021-10-06] MEDS: ALBUTEROL SO4 2.5/IPRATROPIUM 0.5 INH SOL 3 ML VIAL.NEB. NEB SCH ×3 (08:20→20:10)
[2021-10-06] MEDS: MIDAZOLAM IN 0.9 % SOD.CHLORID 100 MG/100 ML PLAST..BAG IVPB SCH ×2 (09:54→12:46)
[2021-10-06] MEDS: FENTANYL NS IVPB 500 MCG/100 ML BAG IVPB SCH (09:54)
[2021-10-06] MEDS ORDERED: SODIUM CHLORIDE 100 ML IVPB ONE (09:59)
[2021-10-06] MEDS: SODIUM ZIRCONIUM CYCLOSILICATE (LOKELMA) 5 GM PACKET PO SCH (10:19)
[2021-10-06] MEDS: ENOXAPARIN NA (PORCINE) 80 MG/0.8 ML DISP.SYRIN SQ SCH (10:19)
[2021-10-06] MEDS: PANTOPRAZOLE SODIUM 40 MG VIAL IVPUSH SCH (10:25)
[2021-10-06] MEDS: CEFTRIAXONE 2 GM in SODIUM CHLORIDE 100 ML IVPB SCH (10:25)
[2021-10-06] MEDS: AZITHROMYCIN IVPB 500 MG/250 ML BAG IVPB SCH (10:25)
[2021-10-06] MEDS: LACTATED RINGERS SOLUTION 1,000 ML/1,000 ML INFUS.BAG IV SCH (10:26)
[2021-10-06] MEDS: MUPIROCIN 2% TOPICAL OINTMENT FOR DECOLONIZATION NS SCH ×2 (10:26→21:26)
[2021-10-06 12:09] LABS: ANISOCYTOSIS 0; MACROCYTOSIS 0
[2021-10-06] MEDS: AMINO ACIDS/PROTEIN HYDROLYS 30 ML LIQUID.PKT PO SCH (17:37)
[2021-10-06] MEDS ORDERED: LACTATED RINGERS SOLUTION 1,000 ML/1,000 ML INFUS.BAG IV ONE (19:38)
[2021-10-06] MEDS: ARFORMOTEROL TARTRATE 15 MCG/2 ML VIAL NEB SCH (20:10)
[2021-10-06] MEDS: BUDESONIDE 0.25 MG/2ML INH SUSP VIAL NEB SCH (20:10)
[2021-10-06] MEDS: CHLORHEXIDINE GLUCONATE 4% CLEANSER FOR DECOLONIZATION TP SCH (21:26)
[2021-10-07] MEDS: methylPREDNISolone NA SUCC 40 MG/1 ML VIAL IVPUSH SCH ×4 (03:36→22:30)
[2021-10-07] MEDS ORDERED: MIDAZOLAM HCL 5 MG/1 ML Single Dose Vial IVPUSH ONE (04:11)
[2021-10-07] MEDS: LACTATED RINGERS SOLUTION 1,000 ML/1,000 ML INFUS.BAG IV SCH ×2 (04:55→10:55)
[2021-10-07] MEDS: ALBUTEROL SO4 2.5/IPRATROPIUM 0.5 INH SOL 3 ML VIAL.NEB. NEB SCH ×4 (07:52→20:30)
[2021-10-07] MEDS: BUDESONIDE 0.25 MG/2ML INH SUSP VIAL NEB SCH ×2 (07:53→20:30)
[2021-10-07] MEDS: ARFORMOTEROL TARTRATE 15 MCG/2 ML VIAL NEB SCH ×2 (07:53→20:30)
[2021-10-07] MEDS ORDERED: ALBUTEROL SO4 2.5/IPRATROPIUM 0.5 INH SOL 3 ML VIAL.NEB. NEB PRN (08:17)
[2021-10-07 10:18] LABS: ARTERIAL BLD GAS O2 SATURATION 94.6 % (95-98); ARTERIAL BLOOD GAS BASE EXCESS 0.1 mmol/L (-2-2); ARTERIAL BLOOD GAS PO2 77.2 mmHg (80-100); ARTERIAL BLOOD GAS pH 7.345 (7.350-7.450)
[2021-10-07] MEDS ORDERED: SODIUM CHLORIDE 100 ML IVPB ONE (10:20)
[2021-10-07 10:21] LABS: ALLENS TEST POSITIVE; VENT MODE A/C; VENT RATE 12
[2021-10-07] MEDS: SODIUM ZIRCONIUM CYCLOSILICATE (LOKELMA) 5 GM PACKET PO SCH (10:32)
[2021-10-07] MEDS: ENOXAPARIN NA (PORCINE) 40 MG/0.4 ML DISP.SYRIN SQ SCH (10:32)
[2021-10-07] MEDS: AMINO ACIDS/PROTEIN HYDROLYS 30 ML LIQUID.PKT PO SCH ×2 (10:32→17:27)
[2021-10-07] MEDS: AZITHROMYCIN IVPB 500 MG/250 ML BAG IVPB SCH (10:33)
[2021-10-07] MEDS: CEFTRIAXONE 2 GM in SODIUM CHLORIDE 100 ML IVPB SCH (10:33)
[2021-10-07] MEDS: PANTOPRAZOLE SODIUM 40 MG VIAL IVPUSH SCH (10:33)
[2021-10-07] MEDS: MUPIROCIN 2% TOPICAL OINTMENT FOR DECOLONIZATION NS SCH ×2 (10:33→23:17)
[2021-10-07] MEDS ORDERED: PROPOFOL 1,000,000 MCG/100 ML VIAL IVPB SCH (10:45)
[2021-10-07] MEDS: PROPOFOL 1,000,000 MCG/100 ML VIAL IVPB SCH (10:55)
[2021-10-07] MEDS ORDERED: ALBUTEROL SO4 2.5/IPRATROPIUM 0.5 INH SOL 3 ML VIAL.NEB. NEB ONE (10:56)
[2021-10-07] MEDS: MIDAZOLAM IN 0.9 % SOD.CHLORID 100 MG/100 ML PLAST..BAG IVPB SCH (11:00)
[2021-10-07 12:44] LABS: ALBUMIN 2.7 g/dl (3.4-5.0); CALCIUM 7.7 mg/dL (8.5-10.1); MAGNESIUM 3.7 mg/dL (1.8-2.4)
[2021-10-07 12:45] LABS: BLOOD UREA NITROGEN 39.1 mg/dL (7-18)
[2021-10-07 12:47] LABS: CREATININE 0.8 mg/dL (0.55-1.3)
[2021-10-07 12:49] LABS: BILIRUBIN,TOTAL 0.2 mg/dL (0.2-1); TOT PROT 5.2 g/dl (6.4-8.2)
[2021-10-07] MEDS: CHLORHEXIDINE GLUCONATE 4% CLEANSER FOR DECOLONIZATION TP SCH (23:17)
[2021-10-08] MEDS: methylPREDNISolone NA SUCC 40 MG/1 ML VIAL IVPUSH SCH ×4 (03:53→21:38)
[2021-10-08 07:44] LABS: HEMATOCRIT 33.7 % (35.4-49); MCH 28.2 pg (25.7-33.7); MCHC 32.7 g/dl (32.0-35.9); MEAN CELL VOLUME 86.1 fl (80-96); MEAN PLT VOLUME 9.1 fl (7.5-11.1); PLATELET COUNT 235 10^3/uL (134-434); RBC 3.91 M/mm3 (4.00-5.60); RDW 18.6 % (11.9-15.9); WHITE BLOOD COUNT 8.1 K/mm3 (4.0-10.0)
[2021-10-08] MEDS: ARFORMOTEROL TARTRATE 15 MCG/2 ML VIAL NEB SCH ×2 (07:55→20:56)
[2021-10-08] MEDS: BUDESONIDE 0.25 MG/2ML INH SUSP VIAL NEB SCH ×2 (07:55→20:57)
[2021-10-08] MEDS: ALBUTEROL SO4 2.5/IPRATROPIUM 0.5 INH SOL 3 ML VIAL.NEB. NEB SCH ×4 (07:55→20:58)
[2021-10-08] MEDS ORDERED: SODIUM CHLORIDE 100 ML IVPB ONE (10:18)
[2021-10-08] MEDS: PANTOPRAZOLE SODIUM 40 MG VIAL IVPUSH SCH (10:21)
[2021-10-08] MEDS: CEFTRIAXONE 2 GM in SODIUM CHLORIDE 100 ML IVPB SCH (10:21)
[2021-10-08] MEDS: SODIUM ZIRCONIUM CYCLOSILICATE (LOKELMA) 5 GM PACKET PO SCH (10:22)
[2021-10-08] MEDS: MUPIROCIN 2% TOPICAL OINTMENT FOR DECOLONIZATION NS SCH ×2 (10:22→21:38)
[2021-10-08] MEDS: ENOXAPARIN NA (PORCINE) 40 MG/0.4 ML DISP.SYRIN SQ SCH (10:22)
[2021-10-08] MEDS: AMINO ACIDS/PROTEIN HYDROLYS 30 ML LIQUID.PKT PO SCH ×2 (10:22→17:47)
[2021-10-08] MEDS: MIDAZOLAM IN 0.9 % SOD.CHLORID 100 MG/100 ML PLAST..BAG IVPB SCH ×2 (10:30→20:09)
[2021-10-08 11:03] LABS: BLOOD UREA NITROGEN 38.8 mg/dL (7-18); CALCIUM 8.5 mg/dL (8.5-10.1)
[2021-10-08 11:07] LABS: CREATININE 0.8 mg/dL (0.55-1.3)
[2021-10-08] MEDS: LACTATED RINGERS SOLUTION 1,000 ML/1,000 ML INFUS.BAG IV SCH (11:18)
[2021-10-08] MEDS: DEXTROSE 5% IV SCH ×2 (11:19→17:45)
[2021-10-08] MEDS: WATER IV SCH ×2 (11:19→17:45)
[2021-10-08] MEDS: KETAMINE HCL IV SCH ×2 (11:19→17:45)
[2021-10-08] MEDS: PROPOFOL 1,000,000 MCG/100 ML VIAL IVPB SCH ×2 (11:55→15:33)
[2021-10-08] MEDS: CHLORHEXIDINE GLUCONATE 4% CLEANSER FOR DECOLONIZATION TP SCH (21:38)
[2021-10-09] MEDS: methylPREDNISolone NA SUCC 40 MG/1 ML VIAL IVPUSH SCH ×4 (02:17→21:36)
[2021-10-09 06:15] LABS: ARTERIAL BLD GAS O2 SATURATION 98.4 % (95-98); ARTERIAL BLOOD GAS BASE EXCESS 2.9 mmol/L (-2-2); ARTERIAL BLOOD GAS PO2 134.4 mmHg (80-100)
[2021-10-09 06:16] LABS: ALLENS TEST POSITIVE
[2021-10-09 06:17] LABS: VENT MODE A/C; VENT RATE 12
[2021-10-09 08:28] LABS: CALCIUM 7.9 mg/dL (8.5-10.1)
[2021-10-09 08:29] LABS: MAGNESIUM 3.4 mg/dL (1.8-2.4)
[2021-10-09 08:32] LABS: CREATININE 0.8 mg/dL (0.55-1.3); PHOSPHOROUS 3.6 mg/dL (2.5-4.9)
[2021-10-09] MEDS: ARFORMOTEROL TARTRATE 15 MCG/2 ML VIAL NEB SCH ×2 (08:36→20:49)
[2021-10-09] MEDS: BUDESONIDE 0.25 MG/2ML INH SUSP VIAL NEB SCH ×2 (08:36→20:57)
[2021-10-09] MEDS: ALBUTEROL SO4 2.5/IPRATROPIUM 0.5 INH SOL 3 ML VIAL.NEB. NEB SCH ×4 (08:37→20:49)
[2021-10-09] MEDS: PROPOFOL 1,000,000 MCG/100 ML VIAL IVPB SCH ×2 (09:15→15:30)
[2021-10-09] MEDS ORDERED: SODIUM CHLORIDE 100 ML IVPB ONE (09:27)
[2021-10-09] MEDS: PANTOPRAZOLE SODIUM 40 MG VIAL IVPUSH SCH (09:29)
[2021-10-09] MEDS: AMINO ACIDS/PROTEIN HYDROLYS 30 ML LIQUID.PKT PO SCH ×2 (09:29→18:11)
[2021-10-09] MEDS: CEFTRIAXONE 2 GM in SODIUM CHLORIDE 100 ML IVPB SCH (09:30)
[2021-10-09] MEDS: MIDAZOLAM IN 0.9 % SOD.CHLORID 100 MG/100 ML PLAST..BAG IVPB SCH (09:30)
[2021-10-09] MEDS: SODIUM ZIRCONIUM CYCLOSILICATE (LOKELMA) 5 GM PACKET PO SCH (09:30)
[2021-10-09] MEDS: ENOXAPARIN NA (PORCINE) 40 MG/0.4 ML DISP.SYRIN SQ SCH (09:30)
[2021-10-09] MEDS: DEXTROSE 5% IV SCH (18:11)
[2021-10-09] MEDS: KETAMINE HCL IV SCH (18:11)
[2021-10-09] MEDS: WATER IV SCH (18:11)
[2021-10-09] MEDS: CHLORHEXIDINE GLUCONATE 4% CLEANSER FOR DECOLONIZATION TP SCH (21:36)
[2021-10-10] MEDS: methylPREDNISolone NA SUCC 40 MG/1 ML VIAL IVPUSH SCH ×4 (03:30→22:00)
[2021-10-10 05:37] LABS: ALLENS TEST POSITIVE; ARTERIAL BLD GAS O2 SATURATION 98.5 % (95-98); ARTERIAL BLOOD GAS BASE EXCESS 4.1 mmol/L (-2-2); ARTERIAL BLOOD GAS pH 7.377 (7.350-7.450)
[2021-10-10 05:38] LABS: VENT MODE A/C; VENT RATE 12
[2021-10-10] MEDS: ALBUTEROL SO4 2.5/IPRATROPIUM 0.5 INH SOL 3 ML VIAL.NEB. NEB SCH ×4 (07:20→20:10)
[2021-10-10] MEDS: BUDESONIDE 0.25 MG/2ML INH SUSP VIAL NEB SCH ×2 (07:20→20:10)
[2021-10-10] MEDS: ARFORMOTEROL TARTRATE 15 MCG/2 ML VIAL NEB SCH ×2 (07:20→20:10)
[2021-10-10] MEDS ORDERED: SODIUM CHLORIDE 100 ML IVPB ONE ×2 (09:10→10:23)
[2021-10-10] MEDS: MIDAZOLAM IN 0.9 % SOD.CHLORID 100 MG/100 ML PLAST..BAG IVPB SCH (10:00)
[2021-10-10] MEDS: ENOXAPARIN NA (PORCINE) 40 MG/0.4 ML DISP.SYRIN SQ SCH (10:32)
[2021-10-10] MEDS: SODIUM ZIRCONIUM CYCLOSILICATE (LOKELMA) 5 GM PACKET PO SCH (10:32)
[2021-10-10] MEDS: AMINO ACIDS/PROTEIN HYDROLYS 30 ML LIQUID.PKT PO SCH ×2 (10:32→17:58)
[2021-10-10] MEDS: PANTOPRAZOLE SODIUM 40 MG VIAL IVPUSH SCH (10:32)
[2021-10-10] MEDS: CEFTRIAXONE 2 GM in SODIUM CHLORIDE 100 ML IVPB SCH (10:33)
[2021-10-10] MEDS: PROPOFOL 1,000,000 MCG/100 ML VIAL IVPB SCH ×2 (10:33→12:58)
[2021-10-10] MEDS: DEXTROSE 5% IV SCH ×2 (12:50→18:15)
[2021-10-10] MEDS: KETAMINE HCL IV SCH ×2 (12:50→18:15)
[2021-10-10] MEDS: WATER IV SCH ×2 (12:50→18:15)
[2021-10-10] MEDS ORDERED: FUROSEMIDE 40 MG/4 ML INJECTABLE VIAL IVPUSH ONE (18:16)
[2021-10-10] MEDS: CHLORHEXIDINE GLUCONATE 4% CLEANSER FOR DECOLONIZATION TP SCH (22:39)
[2021-10-11] MEDS: methylPREDNISolone NA SUCC 40 MG/1 ML VIAL IVPUSH SCH ×4 (03:51→20:35)
[2021-10-11 07:25] LABS: HEMATOCRIT 30.8 % (35.4-49); HEMOGLOBIN 10.2 GM/dL (11.7-16.9); MCH 28.4 pg (25.7-33.7); MCHC 33.2 g/dl (32.0-35.9); MEAN CELL VOLUME 85.3 fl (80-96); MEAN PLT VOLUME 8.9 fl (7.5-11.1); PLATELET COUNT 153 10^3/uL (134-434); RBC 3.61 M/mm3 (4.00-5.60); RDW 17.3 % (11.9-15.9); WHITE BLOOD COUNT 7.9 K/mm3 (4.0-10.0)
[2021-10-11 07:43] LABS: CALCIUM 7.1 mg/dL (8.5-10.1)
[2021-10-11 07:44] LABS: BLOOD UREA NITROGEN 38.8 mg/dL (7-18)
[2021-10-11 07:47] LABS: CREATININE 0.8 mg/dL (0.55-1.3)
[2021-10-11] MEDS: MIDAZOLAM IN 0.9 % SOD.CHLORID 100 MG/100 ML PLAST..BAG IVPB SCH (08:00)
[2021-10-11] MEDS: ALBUTEROL SO4 2.5/IPRATROPIUM 0.5 INH SOL 3 ML VIAL.NEB. NEB SCH ×4 (08:20→19:46)
[2021-10-11] MEDS: BUDESONIDE 0.25 MG/2ML INH SUSP VIAL NEB SCH ×2 (08:20→19:46)
[2021-10-11] MEDS: ARFORMOTEROL TARTRATE 15 MCG/2 ML VIAL NEB SCH ×2 (08:20→19:45)
[2021-10-11] MEDS ORDERED: LACTATED RINGERS SOLUTION 1,000 ML/1,000 ML INFUS.BAG IV SCH (08:30)
[2021-10-11] MEDS ORDERED: SODIUM CHLORIDE 100 ML IVPB ONE (08:52)
[2021-10-11] MEDS: PANTOPRAZOLE SODIUM 40 MG VIAL IVPUSH SCH (09:38)
[2021-10-11] MEDS: SODIUM ZIRCONIUM CYCLOSILICATE (LOKELMA) 5 GM PACKET PO SCH (09:39)
[2021-10-11] MEDS: ENOXAPARIN NA (PORCINE) 40 MG/0.4 ML DISP.SYRIN SQ SCH (09:39)
[2021-10-11] MEDS: CEFTRIAXONE 2 GM in SODIUM CHLORIDE 100 ML IVPB SCH (09:40)
[2021-10-11] MEDS: PROPOFOL 1,000,000 MCG/100 ML VIAL IVPB SCH ×3 (09:40→17:14)
[2021-10-11] MEDS ORDERED: FENTANYL IVPB 500 MCG/100 ML BAG IVPB SCH (10:30)
[2021-10-11] MEDS: AMINO ACIDS/PROTEIN HYDROLYS 30 ML LIQUID.PKT PO SCH ×3 (12:00→17:14)
[2021-10-11] MEDS: DEXTROSE 5% IV SCH ×3 (12:34→23:40)
[2021-10-11] MEDS: WATER IV SCH ×3 (12:34→23:40)
[2021-10-11] MEDS: KETAMINE HCL IV SCH ×3 (12:34→23:40)
[2021-10-11] MEDS ORDERED: FENTANYL NS IVPB 500 MCG/100 ML BAG IVPB ONE (13:43)
[2021-10-11] MEDS: FENTANYL NS IVPB 500 MCG/100 ML BAG IVPB SCH (13:49)
[2021-10-11] MEDS: amLODIPine BESYLATE 5 MG TABLET (FP) PO SCH (20:35)
[2021-10-11] MEDS: CHLORHEXIDINE GLUCONATE 4% CLEANSER FOR DECOLONIZATION TP SCH (22:20)
[2021-10-12] MEDS: methylPREDNISolone NA SUCC 40 MG/1 ML VIAL IVPUSH SCH ×4 (03:41→21:24)
[2021-10-12] MEDS: KETAMINE HCL IV SCH (07:00)
[2021-10-12] MEDS: WATER IV SCH (07:00)
[2021-10-12] MEDS: DEXTROSE 5% IV SCH (07:00)
[2021-10-12] MEDS ORDERED: SODIUM CHLORIDE 100 ML IVPB ONE (07:28)
[2021-10-12 07:29] LABS: HEMATOCRIT 35.6 % (35.4-49); HEMOGLOBIN 11.6 GM/dL (11.7-16.9); MCHC 32.7 g/dl (32.0-35.9); MEAN CELL VOLUME 85.7 fl (80-96); PLATELET COUNT 182 10^3/uL (134-434); RBC 4.16 M/mm3 (4.00-5.60); RDW 17.9 % (11.9-15.9); WHITE BLOOD COUNT 13.3 K/mm3 (4.0-10.0)
[2021-10-12] MEDS: AMINO ACIDS/PROTEIN HYDROLYS 30 ML LIQUID.PKT PO SCH ×3 (07:34→16:52)
[2021-10-12] MEDS: BUDESONIDE 0.25 MG/2ML INH SUSP VIAL NEB SCH ×2 (07:45→20:00)
[2021-10-12] MEDS: ARFORMOTEROL TARTRATE 15 MCG/2 ML VIAL NEB SCH ×2 (07:45→20:20)
[2021-10-12] MEDS: ALBUTEROL SO4 2.5/IPRATROPIUM 0.5 INH SOL 3 ML VIAL.NEB. NEB SCH ×4 (07:45→20:20)
[2021-10-12 08:05] LABS: CALCIUM 7.4 mg/dL (8.5-10.1)
[2021-10-12 08:10] LABS: PHOSPHOROUS 3.9 mg/dL (2.5-4.9)
[2021-10-12 08:11] LABS: CREATININE 0.8 mg/dL (0.55-1.3)
[2021-10-12] MEDS ORDERED: INSULIN (NOVOLOG) ASPART 100 UNITS/ML 10ML VIAL SQ ONE (08:41)
[2021-10-12] MEDS ORDERED: DEXTROSE 50%-WATER - 25 GM/50 ML VIAL IVPUSH ONE (08:49)
[2021-10-12] MEDS ORDERED: CALCIUM GLUCONATE 10% - 1,000 MG/10 ML VIAL IVPUSH ONE (09:01)
[2021-10-12] MEDS ORDERED: INSULIN REGULAR HUMAN 100 UNITS/ML *VIAL IVPUSH ONE (09:01)
[2021-10-12] MEDS ORDERED: FUROSEMIDE 40 MG/4 ML INJECTABLE VIAL IVPUSH ONE (09:40)
[2021-10-12] MEDS: SODIUM ZIRCONIUM CYCLOSILICATE (LOKELMA) 5 GM PACKET PO SCH (09:50)
[2021-10-12] MEDS: ENOXAPARIN NA (PORCINE) 40 MG/0.4 ML DISP.SYRIN SQ SCH (09:50)
[2021-10-12] MEDS: PANTOPRAZOLE SODIUM 40 MG VIAL IVPUSH SCH (09:50)
[2021-10-12] MEDS: amLODIPine BESYLATE 5 MG TABLET (FP) PO SCH (09:50)
[2021-10-12] MEDS: PROPOFOL 1,000,000 MCG/100 ML VIAL IVPB SCH ×4 (09:51→23:00)
[2021-10-12] MEDS: FENTANYL NS IVPB 500 MCG/100 ML BAG IVPB SCH ×2 (09:51→18:52)
[2021-10-12] MEDS: CEFTRIAXONE 2 GM in SODIUM CHLORIDE 100 ML IVPB SCH (09:51)
[2021-10-12 10:31] VITALS: BMI 31.6
[2021-10-12] MEDS: CHLORTHALIDONE 25 MG TABLET PO SCH (12:49)
[2021-10-12 15:40] LABS: BLOOD UREA NITROGEN 50.1 mg/dL (7-18); CALCIUM 7.3 mg/dL (8.5-10.1)
[2021-10-12 15:44] LABS: CREATININE 0.8 mg/dL (0.55-1.3)
[2021-10-12] MEDS: ACETAMINOPHEN 325 MG TABLET (FP) PO PRN (16:51)
[2021-10-12] MEDS: SENNOSIDES/DOCUSATE COMBO (SENNA PLUS) TABLET (UD) PO SCH (21:24)
[2021-10-12] MEDS: POLYETHYLENE GLYCOL (HEALTHYLAX) 3350 17 GM PACKET PO SCH (21:24)
[2021-10-12] MEDS: CHLORHEXIDINE GLUCONATE 4% CLEANSER FOR DECOLONIZATION TP SCH (21:25)
[2021-10-13] MEDS: methylPREDNISolone NA SUCC 40 MG/1 ML VIAL IVPUSH SCH ×4 (02:00→21:24)
[2021-10-13] MEDS: KETAMINE HCL IV SCH ×2 (02:01→07:02)
[2021-10-13] MEDS: WATER IV SCH ×2 (02:01→07:02)
[2021-10-13] MEDS: DEXTROSE 5% IV SCH ×2 (02:01→07:02)
[2021-10-13] MEDS: FENTANYL NS IVPB 500 MCG/100 ML BAG IVPB SCH ×4 (02:02→18:19)
[2021-10-13] MEDS: PROPOFOL 1,000,000 MCG/100 ML VIAL IVPB SCH ×2 (07:02→11:00)
[2021-10-13 07:36] LABS: HEMATOCRIT 33.5 % (35.4-49); HEMOGLOBIN 10.7 GM/dL (11.7-16.9); MCH 27.6 pg (25.7-33.7); MEAN CELL VOLUME 86.5 fl (80-96); MEAN PLT VOLUME 9.6 fl (7.5-11.1); PLATELET COUNT 153 10^3/uL (134-434); RBC 3.88 M/mm3 (4.00-5.60); RDW 17.4 % (11.9-15.9); WHITE BLOOD COUNT 10.5 K/mm3 (4.0-10.0)
[2021-10-13 07:38] LABS: CALCIUM 7.7 mg/dL (8.5-10.1)
[2021-10-13 07:39] LABS: BLOOD UREA NITROGEN 55.9 mg/dL (7-18)
[2021-10-13 07:42] LABS: CREATININE 0.8 mg/dL (0.55-1.3)
[2021-10-13] MEDS: BUDESONIDE 0.25 MG/2ML INH SUSP VIAL NEB SCH ×2 (08:10→20:23)
[2021-10-13] MEDS: ALBUTEROL SO4 2.5/IPRATROPIUM 0.5 INH SOL 3 ML VIAL.NEB. NEB SCH ×4 (08:10→20:23)
[2021-10-13] MEDS: ARFORMOTEROL TARTRATE 15 MCG/2 ML VIAL NEB SCH ×2 (08:10→20:22)
[2021-10-13] MEDS ORDERED: SODIUM CHLORIDE 100 ML IVPB ONE (08:41)
[2021-10-13] MEDS: AMINO ACIDS/PROTEIN HYDROLYS 30 ML LIQUID.PKT PO SCH ×3 (08:45→17:54)
[2021-10-13 08:53] LABS: ARTERIAL BLD GAS O2 SATURATION 92.5 % (95-98); ARTERIAL BLOOD GAS BASE EXCESS 6.7 mmol/L (-2-2); ARTERIAL BLOOD GAS PO2 76.6 mmHg (80-100); ARTERIAL BLOOD GAS pH 7.258 (7.350-7.450)
[2021-10-13 08:58] LABS: ALLENS TEST POSITIVE; VENT MODE A/C; VENT RATE 12
[2021-10-13] MEDS: ENOXAPARIN NA (PORCINE) 40 MG/0.4 ML DISP.SYRIN SQ SCH (09:02)
[2021-10-13] MEDS: SODIUM ZIRCONIUM CYCLOSILICATE (LOKELMA) 5 GM PACKET PO SCH (09:03)
[2021-10-13] MEDS: PANTOPRAZOLE SODIUM 40 MG VIAL IVPUSH SCH (09:03)
[2021-10-13] MEDS: POLYETHYLENE GLYCOL (HEALTHYLAX) 3350 17 GM PACKET PO SCH ×2 (09:03→21:24)
[2021-10-13] MEDS: CEFTRIAXONE 2 GM in SODIUM CHLORIDE 100 ML IVPB SCH (09:34)
[2021-10-13] MEDS: CHLORTHALIDONE 25 MG TABLET PO SCH (09:35)
[2021-10-13] MEDS: amLODIPine BESYLATE 5 MG TABLET (FP) PO SCH (09:36)
[2021-10-13] MEDS ORDERED: PIPERACILLIN/TAZOB 3.375 GM 3.375 GM in DEXTROSE 5%-WATER - 50 ML IVPB SCH (11:15)
[2021-10-13] MEDS ORDERED: amLODIPine BESYLATE 5 MG TABLET (FP) PO SCH (11:21)
[2021-10-13] MEDS ORDERED: SODIUM CHLORIDE 1,000 ML IV SCH (12:00)
[2021-10-13 12:01] LABS: EPI CELLS 6 /uL (0-25.1); HYALINE CASTS 0 /uL (0-3.1); URINE APPEARANCE CLEAR; URINE BACTERIA 8 /uL (0-1359); URINE BILIRUBIN NEGATIVE (NEGATIVE); URINE COLOR YELLOW; URINE GLUCOSE (UA) NEGATIVE (NEGATIVE); URINE KETONE NEGATIVE (NEGATIVE); URINE LEUK ESTERASE NEGATIVE (NEGATIVE); URINE NITRITE NEGATIVE (NEGATIVE); URINE PROTEIN TRACE (NEGATIVE); URINE RBC 74 /uL (0-23.9); URINE UROBILINOGEN 0.2 mg/dL (0.2-1.0); URINE WBC 16 /uL (0-25.8)
[2021-10-13] MEDS ORDERED: PIPERACILLIN/TAZOBACTAM 3.375 GM VIAL IVPB ONE ×3 (12:51→20:55)
[2021-10-13] MEDS ORDERED: DEXTROSE 5%-WATER - 50 ML IVPB ONE ×3 (12:51→20:56)
[2021-10-13] MEDS: FUROSEMIDE 20 MG TABLET (FP) PO SCH (13:24)
[2021-10-13] MEDS: PIPERACILLIN/TAZOB 3.375 GM 3.375 GM in DEXTROSE 5%-WATER - 50 ML IVPB SCH ×2 (13:25→17:54)
[2021-10-13] MEDS ORDERED: VANCOMYCIN/WATER 1,250 MG/250 ML BAG IVPB SCH (14:00)
[2021-10-13] MEDS: VANCOMYCIN/WATER BAGS 1,250 MG/250 ML BAG IVPB SCH ×2 (14:45→21:25)
[2021-10-13] MEDS ORDERED: HYDROmorphone HCL CARPU-JECT 2 MG/1 ML DISP.SYRIN IVPUSH ONE (17:11)
[2021-10-13] MEDS: SENNOSIDES/DOCUSATE COMBO (SENNA PLUS) TABLET (UD) PO SCH (21:24)
[2021-10-13] MEDS: CHLORHEXIDINE GLUCONATE 4% CLEANSER FOR DECOLONIZATION TP SCH (21:25)
[2021-10-13] MEDS ORDERED: VANCOMYCIN 1,000 MG in DEXTROSE 5%-WATER - 250 ML IVPB SCH (23:15)
[2021-10-14] MEDS: DEXTROSE 5% IV SCH ×3 (00:41→23:50)
[2021-10-14] MEDS: WATER IV SCH ×3 (00:41→23:50)
[2021-10-14] MEDS: KETAMINE HCL IV SCH ×3 (00:41→23:50)
[2021-10-14] MEDS: methylPREDNISolone NA SUCC 40 MG/1 ML VIAL IVPUSH SCH ×4 (02:02→21:39)
[2021-10-14] MEDS: PIPERACILLIN/TAZOB 3.375 GM 3.375 GM in DEXTROSE 5%-WATER - 50 ML IVPB SCH ×3 (02:03→17:33)
[2021-10-14] MEDS ORDERED: VANCOMYCIN 1 GRAM (PRE-DOCKED) 1,000 MG/250 ML BAG IVPB SCH ×2 (03:00→10:00)
[2021-10-14] MEDS: PROPOFOL 1,000,000 MCG/100 ML VIAL IVPB SCH ×6 (04:26→21:00)
[2021-10-14] MEDS: FUROSEMIDE 20 MG TABLET (FP) PO SCH ×2 (06:08→14:53)
[2021-10-14] MEDS ORDERED: hydrALAZINE HCL 20 MG/ML VIAL IVPUSH ONE ×2 (07:03→07:33)
[2021-10-14] MEDS ORDERED: amLODIPine BESYLATE 10 MG TABLET (FP) PO ONE (07:27)
[2021-10-14] MEDS ORDERED: DEXMEDETOMIDINE IN 0.9 % NACL 400 MCG/100 ML VIAL IVPB SCH (07:30)
[2021-10-14] MEDS: BUDESONIDE 0.25 MG/2ML INH SUSP VIAL NEB SCH ×2 (08:00→20:35)
[2021-10-14] MEDS: ALBUTEROL SO4 2.5/IPRATROPIUM 0.5 INH SOL 3 ML VIAL.NEB. NEB SCH ×4 (08:00→20:27)
[2021-10-14] MEDS: ARFORMOTEROL TARTRATE 15 MCG/2 ML VIAL NEB SCH ×2 (08:00→20:27)
[2021-10-14] MEDS ORDERED: LABETALOL HCL 5 MG/1 ML (100MG/20 ML VIAL) IVPUSH ONE (08:45)
[2021-10-14] MEDS ORDERED: DEXTROSE 5%-WATER - 50 ML IVPB ONE ×3 (09:07→23:58)
[2021-10-14] MEDS ORDERED: PIPERACILLIN/TAZOBACTAM 3.375 GM VIAL IVPB ONE ×3 (09:07→23:58)
[2021-10-14] MEDS: POLYETHYLENE GLYCOL (HEALTHYLAX) 3350 17 GM PACKET PO SCH ×2 (09:40→21:38)
[2021-10-14] MEDS: ENOXAPARIN NA (PORCINE) 40 MG/0.4 ML DISP.SYRIN SQ SCH (09:40)
[2021-10-14] MEDS: PANTOPRAZOLE SODIUM 40 MG VIAL IVPUSH SCH (09:40)
[2021-10-14] MEDS: SODIUM ZIRCONIUM CYCLOSILICATE (LOKELMA) 5 GM PACKET PO SCH (09:40)
[2021-10-14] MEDS: AMINO ACIDS/PROTEIN HYDROLYS 30 ML LIQUID.PKT PO SCH ×3 (09:41→17:33)
[2021-10-14 11:21] LABS: HEMOGLOBIN 10.9 GM/dL (11.7-16.9); MCH 27.6 pg (25.7-33.7); MCHC 32.2 g/dl (32.0-35.9); MEAN CELL VOLUME 85.9 fl (80-96); MEAN PLT VOLUME 10.3 fl (7.5-11.1); PLATELET COUNT 160 10^3/uL (134-434); RBC 3.96 M/mm3 (4.00-5.60); WHITE BLOOD COUNT 14.4 K/mm3 (4.0-10.0)
[2021-10-14 11:49] LABS: CALCIUM 7.8 mg/dL (8.5-10.1)
[2021-10-14 11:50] LABS: BLOOD UREA NITROGEN 67.5 mg/dL (7-18)
[2021-10-14 11:53] LABS: CREATININE 0.7 mg/dL (0.55-1.3)
[2021-10-14] MEDS: ACETAMINOPHEN 325 MG TABLET (FP) PO PRN (12:01)
[2021-10-14 12:21] LABS: ARTERIAL BLD GAS O2 SATURATION 95.7 % (95-98); ARTERIAL BLOOD GAS BASE EXCESS 7.8 mmol/L (-2-2); ARTERIAL BLOOD GAS PO2 84.1 mmHg (80-100); ARTERIAL BLOOD GAS pH 7.368 (7.350-7.450)
[2021-10-14 12:22] LABS: ALLENS TEST POSITIVE
[2021-10-14 12:23] LABS: VENT MODE AC; VENT RATE 18
[2021-10-14] MEDS ORDERED: MIDAZOLAM HCL 5 MG/1 ML Single Dose Vial IVPUSH ONE (13:38)
[2021-10-14] MEDS ORDERED: SODIUM CHLORIDE 0.9% 500 ML INFUS.BAG IV ONE (14:33)
[2021-10-14] MEDS ORDERED: LACTATED RINGERS SOLUTION 1,000 ML/1,000 ML INFUS.BAG IV STA (14:52)
[2021-10-14] MEDS ORDERED: LACTATED RINGERS SOLUTION 1,000 ML/1,000 ML INFUS.BAG IV SCH (16:15)
[2021-10-14] MEDS: dilTIAZem HCL 30 MG TABLET PO SCH ×2 (17:32→23:50)
[2021-10-14] MEDS: FENTANYL NS IVPB 500 MCG/100 ML BAG IVPB SCH ×2 (18:21→19:27)
[2021-10-14] MEDS ORDERED: GLYCERIN 1 RECTAL SUPPOSITORY, ADULT PR ONE (19:49)
[2021-10-14] MEDS ORDERED: VANCOMYCIN/WATER FOR INJ (PEG) 1,000 MG/200 ML BAG IVPB SCH (20:40)
[2021-10-14] MEDS: SENNOSIDES/DOCUSATE COMBO (SENNA PLUS) TABLET (UD) PO SCH ×2 (20:45→21:58)
[2021-10-14] MEDS: CHLORHEXIDINE GLUCONATE 4% CLEANSER FOR DECOLONIZATION TP SCH (21:38)
[2021-10-14] MEDS: VANCOMYCIN/WATER FOR INJ (PEG) 1,000 MG/200 ML BAG IVPB SCH (21:39)
[2021-10-14] MEDS: ENOXAPARIN NA (PORCINE) 100 MG/1 ML DISP.SYRIN SQ SCH (22:08)
[2021-10-15] MEDS: PROPOFOL 1,000,000 MCG/100 ML VIAL IVPB SCH ×6 (01:00→17:08)
[2021-10-15] MEDS: DEXTROSE 5% IV SCH ×3 (01:45→23:34)
[2021-10-15] MEDS: KETAMINE HCL IV SCH ×3 (01:45→23:34)
[2021-10-15] MEDS: WATER IV SCH ×3 (01:45→23:34)
[2021-10-15] MEDS: PIPERACILLIN/TAZOB 3.375 GM 3.375 GM in DEXTROSE 5%-WATER - 50 ML IVPB SCH ×3 (02:24→17:04)
[2021-10-15] MEDS: methylPREDNISolone NA SUCC 40 MG/1 ML VIAL IVPUSH SCH ×4 (02:40→21:18)
[2021-10-15] MEDS: dilTIAZem HCL 30 MG TABLET PO SCH ×4 (05:33→23:34)
[2021-10-15] MEDS: FUROSEMIDE 20 MG TABLET (FP) PO SCH ×2 (05:33→14:17)
[2021-10-15 06:55] LABS: HEMATOCRIT 33.1 % (35.4-49); MCH 28.3 pg (25.7-33.7); MCHC 33.2 g/dl (32.0-35.9); MEAN CELL VOLUME 85.2 fl (80-96); MEAN PLT VOLUME 9.9 fl (7.5-11.1); PLATELET COUNT 146 10^3/uL (134-434); RBC 3.88 M/mm3 (4.00-5.60); WHITE BLOOD COUNT 11.2 K/mm3 (4.0-10.0)
[2021-10-15 07:36] LABS: BLOOD UREA NITROGEN 61.6 mg/dL (7-18); CALCIUM 7.8 mg/dL (8.5-10.1)
[2021-10-15 07:37] LABS: MAGNESIUM 2.6 mg/dL (1.8-2.4)
[2021-10-15 07:39] LABS: CREATININE 0.6 mg/dL (0.55-1.3)
[2021-10-15] MEDS: BUDESONIDE 0.25 MG/2ML INH SUSP VIAL NEB SCH ×2 (08:15→20:10)
[2021-10-15] MEDS: ALBUTEROL SO4 2.5/IPRATROPIUM 0.5 INH SOL 3 ML VIAL.NEB. NEB SCH ×4 (08:15→20:10)
[2021-10-15] MEDS: ARFORMOTEROL TARTRATE 15 MCG/2 ML VIAL NEB SCH ×2 (08:15→20:10)
[2021-10-15] MEDS ORDERED: DEXTROSE 5%-WATER - 50 ML IVPB ONE ×3 (08:32→23:14)
[2021-10-15] MEDS ORDERED: PIPERACILLIN/TAZOBACTAM 3.375 GM VIAL IVPB ONE ×3 (08:32→23:14)
[2021-10-15] MEDS: AMINO ACIDS/PROTEIN HYDROLYS 30 ML LIQUID.PKT PO SCH ×3 (08:44→17:04)
[2021-10-15] MEDS: PANTOPRAZOLE SODIUM 40 MG VIAL IVPUSH SCH (09:05)
[2021-10-15] MEDS: SENNOSIDES/DOCUSATE COMBO (SENNA PLUS) TABLET (UD) PO SCH ×2 (09:05→21:19)
[2021-10-15] MEDS: POLYETHYLENE GLYCOL (HEALTHYLAX) 3350 17 GM PACKET PO SCH ×2 (09:06→21:18)
[2021-10-15] MEDS: ENOXAPARIN NA (PORCINE) 100 MG/1 ML DISP.SYRIN SQ SCH ×2 (09:06→21:18)
[2021-10-15] MEDS ORDERED: amLODIPine BESYLATE 5 MG TABLET (FP) PO SCH (10:00)
[2021-10-15 10:11] LABS: ANISOCYTOSIS 0; HELMET CELLS 0; HOWELL-JOLLY BODIES 0; MACROCYTOSIS 0; OVALOCYTE 0; ROULEAU 0; SICKELED CELLS 0; TARGET CELLS 0; TEAR DROP CELLS 0; TOXIC GRANULATION 0
[2021-10-15] MEDS: VANCOMYCIN/WATER FOR INJ (PEG) 1,000 MG/200 ML BAG IVPB SCH ×2 (10:41→21:40)
[2021-10-15] MEDS: FENTANYL NS IVPB 500 MCG/100 ML BAG IVPB SCH ×2 (12:41→20:00)
[2021-10-15] MEDS ORDERED: LIP BALM (CHAPSTICK) TP PRN (18:50)
[2021-10-15] MEDS ORDERED: GLYCERIN 1 RECTAL SUPPOSITORY, ADULT PR ONE ×2 (19:00→20:00)
[2021-10-15] MEDS: CHLORHEXIDINE GLUCONATE 4% CLEANSER FOR DECOLONIZATION TP SCH (21:18)
[2021-10-16] MEDS: PIPERACILLIN/TAZOB 3.375 GM 3.375 GM in DEXTROSE 5%-WATER - 50 ML IVPB SCH ×3 (01:50→17:25)
[2021-10-16] MEDS: methylPREDNISolone NA SUCC 40 MG/1 ML VIAL IVPUSH SCH ×2 (02:01→17:23)
[2021-10-16] MEDS: FUROSEMIDE 20 MG TABLET (FP) PO SCH ×2 (05:03→13:04)
[2021-10-16] MEDS: dilTIAZem HCL 30 MG TABLET PO SCH ×4 (05:03→17:30)
[2021-10-16 07:04] LABS: HEMATOCRIT 29.7 % (35.4-49); MCH 28.5 pg (25.7-33.7); MCHC 33.8 g/dl (32.0-35.9); MEAN CELL VOLUME 84.4 fl (80-96); MEAN PLT VOLUME 9.9 fl (7.5-11.1); PLATELET COUNT 127 10^3/uL (134-434); RBC 3.52 M/mm3 (4.00-5.60); RDW 16.5 % (11.9-15.9); WHITE BLOOD COUNT 10.5 K/mm3 (4.0-10.0)
[2021-10-16 07:14] LABS: ARTERIAL BLD GAS O2 SATURATION 97.8 % (95-98); ARTERIAL BLOOD GAS BASE EXCESS 6.4 mmol/L (-2-2); ARTERIAL BLOOD GAS pH 7.362 (7.350-7.450)
[2021-10-16 07:16] LABS: VENT MODE V-A/C
[2021-10-16 07:17] LABS: VENT RATE 16
[2021-10-16] MEDS: PROPOFOL 1,000,000 MCG/100 ML VIAL IVPB SCH ×2 (07:20→10:55)
[2021-10-16 08:07] LABS: CALCIUM 7.5 mg/dL (8.5-10.1)
[2021-10-16 08:08] LABS: BLOOD UREA NITROGEN 59.2 mg/dL (7-18); MAGNESIUM 2.4 mg/dL (1.8-2.4)
[2021-10-16 08:11] LABS: CREATININE 0.6 mg/dL (0.55-1.3)
[2021-10-16] MEDS ORDERED: methylPREDNISolone NA SUCC 40 MG/1 ML VIAL IVPUSH SCH (08:17)
[2021-10-16] MEDS ORDERED: PIPERACILLIN/TAZOBACTAM 3.375 GM VIAL IVPB ONE ×2 (08:23→14:45)
[2021-10-16] MEDS ORDERED: DEXTROSE 5%-WATER - 50 ML IVPB ONE ×2 (08:24→14:45)
[2021-10-16] MEDS: ARFORMOTEROL TARTRATE 15 MCG/2 ML VIAL NEB SCH ×2 (08:25→20:05)
[2021-10-16] MEDS: ALBUTEROL SO4 2.5/IPRATROPIUM 0.5 INH SOL 3 ML VIAL.NEB. NEB SCH ×4 (08:30→20:06)
[2021-10-16] MEDS: BUDESONIDE 0.25 MG/2ML INH SUSP VIAL NEB SCH ×2 (08:35→20:06)
[2021-10-16 09:49] LABS: ANISOCYTOSIS 0; HELMET CELLS 0; HOWELL-JOLLY BODIES 0; MACROCYTOSIS 0; OVALOCYTE 0; ROULEAU 0; SICKELED CELLS 0; TARGET CELLS 0; TEAR DROP CELLS 0; TOXIC GRANULATION 0
[2021-10-16] MEDS ORDERED: FUROSEMIDE 40 MG/4 ML INJECTABLE VIAL IVPUSH ONE (10:28)
[2021-10-16] MEDS: ENOXAPARIN NA (PORCINE) 100 MG/1 ML DISP.SYRIN SQ SCH ×2 (10:35→21:57)
[2021-10-16] MEDS: PANTOPRAZOLE SODIUM 40 MG VIAL IVPUSH SCH (10:35)
[2021-10-16] MEDS: FENTANYL NS IVPB 500 MCG/100 ML BAG IVPB SCH (10:35)
[2021-10-16] MEDS: POLYETHYLENE GLYCOL (HEALTHYLAX) 3350 17 GM PACKET PO SCH ×2 (10:47→21:58)
[2021-10-16] MEDS: SENNOSIDES/DOCUSATE COMBO (SENNA PLUS) TABLET (UD) PO SCH ×2 (10:47→21:58)
[2021-10-16] MEDS: AMINO ACIDS/PROTEIN HYDROLYS 30 ML LIQUID.PKT PO SCH ×3 (10:48→17:30)
[2021-10-16] MEDS: VANCOMYCIN/WATER FOR INJ (PEG) 1,000 MG/200 ML BAG IVPB SCH (11:33)
[2021-10-16] MEDS ORDERED: hydrALAZINE HCL 20 MG/ML VIAL IVPUSH PRN (13:04)
[2021-10-16 14:24] LABS: ARTERIAL BLD GAS O2 SATURATION 93.9 % (95-98); ARTERIAL BLOOD GAS BASE EXCESS 8.6 mmol/L (-2-2); ARTERIAL BLOOD GAS PO2 62.2 mmHg (80-100); ARTERIAL BLOOD GAS pH 7.518 (7.350-7.450)
[2021-10-16 14:34] LABS: ALLENS TEST POSITIVE
[2021-10-16 14:35] LABS: VENT MODE PSV; VENT RATE 10
[2021-10-16] MEDS: CHLORHEXIDINE GLUCONATE 4% CLEANSER FOR DECOLONIZATION TP SCH (21:58)
[2021-10-16] MEDS ORDERED: dilTIAZem HCL 50 MG/10 ML - 10 ML VIAL IVPUSH SCH (22:00)
[2021-10-16] MEDS ORDERED: dilTIAZem HCL 50 MG/10 ML - 10 ML VIAL IVPUSH PRN (22:01)
[2021-10-16] MEDS: hydrALAZINE HCL 20 MG/ML VIAL IVPUSH PRN (22:15)
[2021-10-17] MEDS: dilTIAZem HCL 30 MG TABLET PO SCH ×4 (00:06→17:49)
[2021-10-17] MEDS ORDERED: PIPERACILLIN/TAZOBACTAM 3.375 GM VIAL IVPB ONE ×3 (00:08→17:12)
[2021-10-17] MEDS ORDERED: DEXTROSE 5%-WATER - 50 ML IVPB ONE ×3 (00:09→17:12)
[2021-10-17] MEDS: methylPREDNISolone NA SUCC 40 MG/1 ML VIAL IVPUSH SCH ×3 (02:17→17:50)
[2021-10-17] MEDS: PIPERACILLIN/TAZOB 3.375 GM 3.375 GM in DEXTROSE 5%-WATER - 50 ML IVPB SCH ×3 (02:17→17:50)
[2021-10-17] MEDS: FUROSEMIDE 20 MG TABLET (FP) PO SCH ×2 (06:48→13:58)
[2021-10-17 07:13] LABS: HEMATOCRIT 36.4 % (35.4-49); HEMOGLOBIN 11.6 GM/dL (11.7-16.9); MCH 26.9 pg (25.7-33.7); MCHC 31.9 g/dl (32.0-35.9); MEAN CELL VOLUME 84.3 fl (80-96); MEAN PLT VOLUME 10.8 fl (7.5-11.1); PLATELET COUNT 171 10^3/uL (134-434); RBC 4.32 M/mm3 (4.00-5.60); RDW 16.6 % (11.9-15.9); WHITE BLOOD COUNT 18.5 K/mm3 (4.0-10.0)
[2021-10-17 07:35] LABS: CALCIUM 7.8 mg/dL (8.5-10.1)
[2021-10-17 07:36] LABS: BLOOD UREA NITROGEN 56.1 mg/dL (7-18); MAGNESIUM 2.5 mg/dL (1.8-2.4)
[2021-10-17 07:39] LABS: CREATININE 0.5 mg/dL (0.55-1.3)
[2021-10-17] MEDS: BUDESONIDE 0.25 MG/2ML INH SUSP VIAL NEB SCH ×2 (07:50→20:46)
[2021-10-17] MEDS: ARFORMOTEROL TARTRATE 15 MCG/2 ML VIAL NEB SCH ×2 (07:50→20:45)
[2021-10-17] MEDS: ALBUTEROL SO4 2.5/IPRATROPIUM 0.5 INH SOL 3 ML VIAL.NEB. NEB SCH ×4 (08:15→20:46)
[2021-10-17] MEDS: AMINO ACIDS/PROTEIN HYDROLYS 30 ML LIQUID.PKT PO SCH ×3 (09:03→17:49)
[2021-10-17] MEDS: POLYETHYLENE GLYCOL (HEALTHYLAX) 3350 17 GM PACKET PO SCH ×2 (09:03→21:43)
[2021-10-17] MEDS: SENNOSIDES/DOCUSATE COMBO (SENNA PLUS) TABLET (UD) PO SCH ×2 (09:04→21:43)
[2021-10-17] MEDS: amLODIPine BESYLATE 10 MG TABLET (FP) PO SCH (09:04)
[2021-10-17] MEDS: PANTOPRAZOLE SODIUM 40 MG VIAL IVPUSH SCH (09:12)
[2021-10-17] MEDS: ENOXAPARIN NA (PORCINE) 100 MG/1 ML DISP.SYRIN SQ SCH (09:16)
[2021-10-17 12:15] LABS: ANISOCYTOSIS 0; MACROCYTOSIS 0
[2021-10-17 12:51] LABS: ARTERIAL BLD GAS O2 SATURATION 97.4 % (95-98); ARTERIAL BLOOD GAS BASE EXCESS 9.1 mmol/L (-2-2); ARTERIAL BLOOD GAS pH 7.498 (7.350-7.450)
[2021-10-17] MEDS ORDERED: LORazepam 2 MG/ML SDV VIAL IVPUSH PRN (19:45)
[2021-10-17] MEDS: CHLORHEXIDINE GLUCONATE 4% CLEANSER FOR DECOLONIZATION TP SCH (21:43)
[2021-10-17] MEDS ORDERED: ACETAMINOPHEN 1000 MG/100 ML BAG IVPB ONE (23:58)
[2021-10-18] MEDS: dilTIAZem HCL 30 MG TABLET PO SCH ×5 (00:15→23:47)
[2021-10-18] MEDS ORDERED: DEXTROSE 5%-WATER - 50 ML IVPB ONE ×3 (01:25→17:16)
[2021-10-18] MEDS ORDERED: PIPERACILLIN/TAZOBACTAM 3.375 GM VIAL IVPB ONE ×3 (01:25→17:16)
[2021-10-18] MEDS: PIPERACILLIN/TAZOB 3.375 GM 3.375 GM in DEXTROSE 5%-WATER - 50 ML IVPB SCH ×3 (02:05→17:48)
[2021-10-18] MEDS: methylPREDNISolone NA SUCC 40 MG/1 ML VIAL IVPUSH SCH ×3 (02:05→21:35)
[2021-10-18] MEDS: FUROSEMIDE 20 MG TABLET (FP) PO SCH (05:31)
[2021-10-18 07:28] LABS: HEMATOCRIT 30.9 % (35.4-49); MCH 27.5 pg (25.7-33.7); MCHC 32.6 g/dl (32.0-35.9); MEAN CELL VOLUME 84.5 fl (80-96); MEAN PLT VOLUME 10.5 fl (7.5-11.1); PLATELET COUNT 115 10^3/uL (134-434); RBC 3.65 M/mm3 (4.00-5.60); RDW 16.9 % (11.9-15.9); WHITE BLOOD COUNT 14.2 K/mm3 (4.0-10.0)
[2021-10-18 08:13] LABS: BLOOD UREA NITROGEN 54.6 mg/dL (7-18); CALCIUM 7.6 mg/dL (8.5-10.1); MAGNESIUM 2.5 mg/dL (1.8-2.4)
[2021-10-18 08:14] LABS: ALBUMIN 2.2 g/dl (3.4-5.0)
[2021-10-18 08:16] LABS: CREATININE 0.6 mg/dL (0.55-1.3); PHOSPHOROUS 2.4 mg/dL (2.5-4.9)
[2021-10-18 08:17] LABS: TOT PROT 4.8 g/dl (6.4-8.2)
[2021-10-18 08:18] LABS: BILIRUBIN,TOTAL 1.2 mg/dL (0.2-1)
[2021-10-18] MEDS ORDERED: NAPH,MB-DB/K PH,MBDB POWDER PACKET PO ONE (08:53)
[2021-10-18] MEDS: ALBUTEROL SO4 2.5/IPRATROPIUM 0.5 INH SOL 3 ML VIAL.NEB. NEB SCH ×4 (08:55→20:18)
[2021-10-18] MEDS: ARFORMOTEROL TARTRATE 15 MCG/2 ML VIAL NEB SCH ×2 (08:55→20:17)
[2021-10-18] MEDS: BUDESONIDE 0.25 MG/2ML INH SUSP VIAL NEB SCH ×2 (08:55→20:18)
[2021-10-18] MEDS: ENOXAPARIN NA (PORCINE) 40 MG/0.4 ML DISP.SYRIN SQ SCH (09:43)
[2021-10-18] MEDS: PANTOPRAZOLE SODIUM 40 MG VIAL IVPUSH SCH (09:44)
[2021-10-18] MEDS: AMINO ACIDS/PROTEIN HYDROLYS 30 ML LIQUID.PKT PO SCH ×3 (10:31→17:10)
[2021-10-18] MEDS: POLYETHYLENE GLYCOL (HEALTHYLAX) 3350 17 GM PACKET PO SCH ×2 (10:31→21:35)
[2021-10-18] MEDS: SENNOSIDES/DOCUSATE COMBO (SENNA PLUS) TABLET (UD) PO SCH ×2 (10:31→21:35)
[2021-10-18 11:25] LABS: ANISOCYTOSIS 0; MACROCYTOSIS 0
[2021-10-18] MEDS ORDERED: SODIUM PHOSPHATE - 0 MM in DEXTROSE 5%-WATER - 250 ML IVPB ONE (11:39)
[2021-10-18] MEDS: amLODIPine BESYLATE 10 MG TABLET (FP) PO SCH (11:59)
[2021-10-18] MEDS ORDERED: ACETAMINOPHEN 1000 MG/100 ML BAG IVPB ONE (12:07)
[2021-10-18] MEDS ORDERED: SODIUM PHOSPHATE - 20 MM in DEXTROSE 5%-WATER - 250 ML IVPB ONE (12:30)
[2021-10-18] MEDS: FUROSEMIDE 40 MG/4 ML INJECTABLE VIAL IVPUSH SCH (13:43)
[2021-10-18] MEDS: CHLORHEXIDINE GLUCONATE 4% CLEANSER FOR DECOLONIZATION TP SCH (21:35)
[2021-10-18] MEDS: THIAMINE HCL 200 MG/2 ML VIAL IVPB SCH (21:35)
[2021-10-19] MEDS ORDERED: PIPERACILLIN/TAZOBACTAM 3.375 GM VIAL IVPB ONE ×3 (02:23→16:23)
[2021-10-19] MEDS ORDERED: DEXTROSE 5%-WATER - 50 ML IVPB ONE ×3 (02:23→16:23)
[2021-10-19] MEDS: PIPERACILLIN/TAZOB 3.375 GM 3.375 GM in DEXTROSE 5%-WATER - 50 ML IVPB SCH ×3 (02:32→17:38)
[2021-10-19] MEDS: THIAMINE HCL 200 MG/2 ML VIAL IVPB SCH ×4 (02:32→21:12)
[2021-10-19] MEDS: dilTIAZem HCL 30 MG TABLET PO SCH ×3 (05:15→17:34)
[2021-10-19] MEDS: FUROSEMIDE 40 MG/4 ML INJECTABLE VIAL IVPUSH SCH ×2 (05:17→10:32)
[2021-10-19 07:19] LABS: HEMATOCRIT 30.1 % (35.4-49); HEMOGLOBIN 9.8 GM/dL (11.7-16.9); MCH 27.3 pg (25.7-33.7); MCHC 32.5 g/dl (32.0-35.9); MEAN CELL VOLUME 84.1 fl (80-96); PLATELET COUNT 111 10^3/uL (134-434); RBC 3.57 M/mm3 (4.00-5.60); RDW 16.7 % (11.9-15.9); WHITE BLOOD COUNT 13.8 K/mm3 (4.0-10.0)
[2021-10-19 07:32] LABS: ALBUMIN 2.2 g/dl (3.4-5.0); BLOOD UREA NITROGEN 42.2 mg/dL (7-18); CALCIUM 7.6 mg/dL (8.5-10.1); MAGNESIUM 2.5 mg/dL (1.8-2.4)
[2021-10-19 07:35] LABS: CREATININE 0.4 mg/dL (0.55-1.3); PHOSPHOROUS 2.9 mg/dL (2.5-4.9)
[2021-10-19 07:36] LABS: BILIRUBIN,TOTAL 0.6 mg/dL (0.2-1); TOT PROT 4.8 g/dl (6.4-8.2)
[2021-10-19] MEDS: BUDESONIDE 0.25 MG/2ML INH SUSP VIAL NEB SCH ×2 (08:00→20:10)
[2021-10-19] MEDS: AMINO ACIDS/PROTEIN HYDROLYS 30 ML LIQUID.PKT PO SCH ×3 (09:04→17:34)
[2021-10-19] MEDS: SENNOSIDES/DOCUSATE COMBO (SENNA PLUS) TABLET (UD) PO SCH ×2 (09:07→21:12)
[2021-10-19] MEDS: POLYETHYLENE GLYCOL (HEALTHYLAX) 3350 17 GM PACKET PO SCH ×2 (09:07→21:12)
[2021-10-19] MEDS: amLODIPine BESYLATE 10 MG TABLET (FP) PO SCH (09:07)
[2021-10-19 09:38] LABS: ANISOCYTOSIS 0; HELMET CELLS 0; HOWELL-JOLLY BODIES 0; MACROCYTOSIS 0; OVALOCYTE 0; ROULEAU 0; SICKELED CELLS 0; TARGET CELLS 0; TEAR DROP CELLS 0; TOXIC GRANULATION 0
[2021-10-19] MEDS: ENOXAPARIN NA (PORCINE) 40 MG/0.4 ML DISP.SYRIN SQ SCH (10:03)
[2021-10-19] MEDS: PANTOPRAZOLE SODIUM 40 MG VIAL IVPUSH SCH (10:04)
[2021-10-19] MEDS: methylPREDNISolone NA SUCC 40 MG/1 ML VIAL IVPUSH SCH ×2 (10:32→21:12)
[2021-10-19] MEDS: ALBUTEROL SO4 2.5/IPRATROPIUM 0.5 INH SOL 3 ML VIAL.NEB. NEB SCH (11:00)
[2021-10-19] MEDS ORDERED: MULTIVIT INJECTION ADULT 10 ML in AMINO ACIDS 4.25%/D5W 1,000 ML IV SCH (17:00)
[2021-10-19] MEDS ORDERED: MULTIVIT INJ. ADULT COMBO WITH VIT K 1 COMBO 10 ML VIAL IV SCH (17:30)
[2021-10-19] MEDS: ARFORMOTEROL TARTRATE 15 MCG/2 ML VIAL NEB SCH ×2 (18:00→20:10)
[2021-10-19] MEDS: CHLORHEXIDINE GLUCONATE 4% CLEANSER FOR DECOLONIZATION TP SCH (21:12)
[2021-10-20] MEDS ORDERED: PIPERACILLIN/TAZOBACTAM 3.375 GM VIAL IVPB ONE ×3 (00:29→16:22)
[2021-10-20] MEDS ORDERED: DEXTROSE 5%-WATER - 50 ML IVPB ONE ×3 (00:30→16:22)
[2021-10-20] MEDS: dilTIAZem HCL 30 MG TABLET PO SCH ×5 (00:51→23:53)
[2021-10-20] MEDS: PIPERACILLIN/TAZOB 3.375 GM 3.375 GM in DEXTROSE 5%-WATER - 50 ML IVPB SCH ×3 (01:02→17:52)
[2021-10-20] MEDS: THIAMINE HCL 200 MG/2 ML VIAL IVPB SCH ×4 (03:45→21:51)
[2021-10-20 06:38] LABS: HEMATOCRIT 27.7 % (35.4-49); MCH 27.6 pg (25.7-33.7); MCHC 32.6 g/dl (32.0-35.9); MEAN CELL VOLUME 84.7 fl (80-96); MEAN PLT VOLUME 10.2 fl (7.5-11.1); PLATELET COUNT 112 10^3/uL (134-434); RBC 3.27 M/mm3 (4.00-5.60); RDW 16.2 % (11.9-15.9); WHITE BLOOD COUNT 13.6 K/mm3 (4.0-10.0)
[2021-10-20 06:52] LABS: CALCIUM 7.6 mg/dL (8.5-10.1)
[2021-10-20 06:53] LABS: ALBUMIN 2.1 g/dl (3.4-5.0); BLOOD UREA NITROGEN 45.2 mg/dL (7-18); MAGNESIUM 2.4 mg/dL (1.8-2.4)
[2021-10-20 06:56] LABS: CREATININE 0.5 mg/dL (0.55-1.3); PHOSPHOROUS 2.3 mg/dL (2.5-4.9)
[2021-10-20 06:58] LABS: BILIRUBIN,TOTAL 0.6 mg/dL (0.2-1); TOT PROT 4.7 g/dl (6.4-8.2)
[2021-10-20] MEDS: ARFORMOTEROL TARTRATE 15 MCG/2 ML VIAL NEB SCH ×2 (07:30→19:43)
[2021-10-20] MEDS: BUDESONIDE 0.25 MG/2ML INH SUSP VIAL NEB SCH ×2 (07:30→19:42)
[2021-10-20] MEDS: AMINO ACIDS/PROTEIN HYDROLYS 30 ML LIQUID.PKT PO SCH ×3 (09:22→16:56)
[2021-10-20] MEDS: POLYETHYLENE GLYCOL (HEALTHYLAX) 3350 17 GM PACKET PO SCH ×2 (09:22→21:51)
[2021-10-20] MEDS: PANTOPRAZOLE SODIUM 40 MG VIAL IVPUSH SCH (09:23)
[2021-10-20] MEDS: SENNOSIDES/DOCUSATE COMBO (SENNA PLUS) TABLET (UD) PO SCH ×2 (09:23→21:52)
[2021-10-20] MEDS: amLODIPine BESYLATE 10 MG TABLET (FP) PO SCH (09:23)
[2021-10-20] MEDS: ENOXAPARIN NA (PORCINE) 40 MG/0.4 ML DISP.SYRIN SQ SCH (09:23)
[2021-10-20] MEDS: methylPREDNISolone NA SUCC 40 MG/1 ML VIAL IVPUSH SCH ×2 (09:23→21:51)
[2021-10-20] MEDS: FUROSEMIDE 40 MG/4 ML INJECTABLE VIAL IVPUSH SCH (09:23)
[2021-10-20 09:32] LABS: ANISOCYTOSIS 0; HELMET CELLS 0; HOWELL-JOLLY BODIES 0; MACROCYTOSIS 0; OVALOCYTE 0; PLATELET ESTIMATE DECREASED; ROULEAU 0; SICKELED CELLS 0; TARGET CELLS 0; TEAR DROP CELLS 0; TOXIC GRANULATION 0
[2021-10-20] MEDS: AMINO ACIDS 4.25%/D5W 1,000 ML IV SCH (16:56)
[2021-10-20] MEDS: MULTIVIT INJ. ADULT COMBO WITH VIT K 1 COMBO 10 ML VIAL IV SCH (18:29)
[2021-10-20] MEDS: CHLORHEXIDINE GLUCONATE 4% CLEANSER FOR DECOLONIZATION TP SCH (21:52)
[2021-10-21] MEDS ORDERED: DEXTROSE 5%-WATER - 50 ML IVPB ONE ×3 (01:43→14:12)
[2021-10-21] MEDS ORDERED: PIPERACILLIN/TAZOBACTAM 3.375 GM VIAL IVPB ONE ×3 (01:43→14:12)
[2021-10-21] MEDS: PIPERACILLIN/TAZOB 3.375 GM 3.375 GM in DEXTROSE 5%-WATER - 50 ML IVPB SCH ×3 (01:48→17:04)
[2021-10-21] MEDS: THIAMINE HCL 200 MG/2 ML VIAL IVPB SCH ×4 (02:15→21:46)
[2021-10-21] MEDS: dilTIAZem HCL 30 MG TABLET PO SCH ×3 (05:29→17:14)
[2021-10-21 07:11] LABS: HEMATOCRIT 28.2 % (35.4-49); HEMOGLOBIN 9.4 GM/dL (11.7-16.9); MCHC 33.3 g/dl (32.0-35.9); MEAN PLT VOLUME 9.8 fl (7.5-11.1); PLATELET COUNT 133 10^3/uL (134-434); RBC 3.36 M/mm3 (4.00-5.60); RDW 16.5 % (11.9-15.9); WHITE BLOOD COUNT 13.6 K/mm3 (4.0-10.0)
[2021-10-21 07:38] LABS: ALBUMIN 2.2 g/dl (3.4-5.0); CREATININE 0.7 mg/dL (0.55-1.3)
[2021-10-21 07:39] LABS: BLOOD UREA NITROGEN 55.5 mg/dL (7-18); CALCIUM 7.6 mg/dL (8.5-10.1); MAGNESIUM 2.4 mg/dL (1.8-2.4)
[2021-10-21 07:40] LABS: BILIRUBIN,TOTAL 0.4 mg/dL (0.2-1); TOT PROT 5.2 g/dl (6.4-8.2)
[2021-10-21 07:42] LABS: PHOSPHOROUS 2.4 mg/dL (2.5-4.9)
[2021-10-21] MEDS ORDERED: NAPH,MB-DB/K PH,MBDB POWDER PACKET NGT ONE (08:56)
[2021-10-21] MEDS: methylPREDNISolone NA SUCC 40 MG/1 ML VIAL IVPUSH SCH (09:06)
[2021-10-21] MEDS: ENOXAPARIN NA (PORCINE) 40 MG/0.4 ML DISP.SYRIN SQ SCH (09:07)
[2021-10-21] MEDS: FUROSEMIDE 40 MG/4 ML INJECTABLE VIAL IVPUSH SCH (09:07)
[2021-10-21] MEDS: POLYETHYLENE GLYCOL (HEALTHYLAX) 3350 17 GM PACKET PO SCH ×2 (09:07→22:37)
[2021-10-21] MEDS: PANTOPRAZOLE SODIUM 40 MG VIAL IVPUSH SCH (09:07)
[2021-10-21] MEDS: SENNOSIDES/DOCUSATE COMBO (SENNA PLUS) TABLET (UD) PO SCH ×2 (09:08→22:37)
[2021-10-21] MEDS: amLODIPine BESYLATE 10 MG TABLET (FP) PO SCH (09:08)
[2021-10-21] MEDS: AMINO ACIDS/PROTEIN HYDROLYS 30 ML LIQUID.PKT PO SCH ×2 (09:08→12:00)
[2021-10-21] MEDS: BUDESONIDE 0.25 MG/2ML INH SUSP VIAL NEB SCH ×2 (09:39→20:32)
[2021-10-21] MEDS: ARFORMOTEROL TARTRATE 15 MCG/2 ML VIAL NEB SCH ×2 (09:39→20:33)
[2021-10-21 11:08] LABS: ANISOCYTOSIS 2+; MACROCYTOSIS 0
[2021-10-21] MEDS ORDERED: POTASSIUM CHLORIDE TABS 20 MEQ TABLET.ER (FP) PO ONE (14:01)
[2021-10-21] MEDS: KCL 10 MEQ IVPB 10 MEQ/100 ML INFUS.BAG IVPB SCH ×3 (15:21→17:03)
[2021-10-21] MEDS: MULTIVIT INJ. ADULT COMBO WITH VIT K 1 COMBO 10 ML VIAL IV SCH (17:57)
[2021-10-21] MEDS: AMINO ACIDS 4.25%/D5W 1,000 ML IV SCH (17:57)
[2021-10-21] MEDS: CHLORHEXIDINE GLUCONATE 4% CLEANSER FOR DECOLONIZATION TP SCH (22:37)
[2021-10-22] MEDS: dilTIAZem HCL 30 MG TABLET PO SCH ×6 (00:13→23:37)
[2021-10-22] MEDS ORDERED: PIPERACILLIN/TAZOBACTAM 3.375 GM VIAL IVPB ONE ×3 (00:56→17:58)
[2021-10-22] MEDS ORDERED: DEXTROSE 5%-WATER - 50 ML IVPB ONE ×3 (00:57→17:59)
[2021-10-22] MEDS: PIPERACILLIN/TAZOB 3.375 GM 3.375 GM in DEXTROSE 5%-WATER - 50 ML IVPB SCH ×3 (01:07→18:13)
[2021-10-22] MEDS: AMINO ACIDS/PROTEIN HYDROLYS 30 ML LIQUID.PKT PO SCH (08:00)
[2021-10-22] MEDS: ARFORMOTEROL TARTRATE 15 MCG/2 ML VIAL NEB SCH ×2 (08:46→20:15)
[2021-10-22] MEDS: BUDESONIDE 0.25 MG/2ML INH SUSP VIAL NEB SCH ×2 (08:47→20:15)
[2021-10-22] MEDS: PANTOPRAZOLE SODIUM 40 MG VIAL IVPUSH SCH (09:11)
[2021-10-22] MEDS: methylPREDNISolone NA SUCC 40 MG/1 ML VIAL IVPUSH SCH (09:12)
[2021-10-22] MEDS: ENOXAPARIN NA (PORCINE) 40 MG/0.4 ML DISP.SYRIN SQ SCH (09:12)
[2021-10-22] MEDS: POLYETHYLENE GLYCOL (HEALTHYLAX) 3350 17 GM PACKET PO SCH ×2 (10:00→21:18)
[2021-10-22] MEDS: SENNOSIDES/DOCUSATE COMBO (SENNA PLUS) TABLET (UD) PO SCH ×2 (10:00→21:18)
[2021-10-22] MEDS: amLODIPine BESYLATE 10 MG TABLET (FP) PO SCH (10:00)
[2021-10-22] MEDS: FUROSEMIDE 40 MG/4 ML INJECTABLE VIAL IVPUSH SCH (15:00)
[2021-10-22 15:02] LABS: BASO % 0.2 % (0-2.0); EOS % 0.3 % (0-4.5); HEMATOCRIT 27.3 % (35.4-49); HEMOGLOBIN 9.1 GM/dL (11.7-16.9); LYMPH % 6.6 % (8-40); MCH 27.8 pg (25.7-33.7); MCHC 33.2 g/dl (32.0-35.9); MEAN CELL VOLUME 83.6 fl (80-96); MEAN PLT VOLUME 8.8 fl (7.5-11.1); MONO % 2.6 % (3.8-10.2); NEUT % 90.3 % (42.8-82.8); PLATELET COUNT 160 10^3/uL (134-434); RBC 3.27 M/mm3 (4.00-5.60); RDW 16.3 % (11.9-15.9); WHITE BLOOD COUNT 11.2 K/mm3 (4.0-10.0)
[2021-10-22 15:30] LABS: ALBUMIN 2.2 g/dl (3.4-5.0); CALCIUM 7.9 mg/dL (8.5-10.1)
[2021-10-22 15:31] LABS: BLOOD UREA NITROGEN 40.1 mg/dL (7-18); MAGNESIUM 2.4 mg/dL (1.8-2.4)
[2021-10-22 15:33] LABS: CREATININE 0.5 mg/dL (0.55-1.3); PHOSPHOROUS 1.8 mg/dL (2.5-4.9)
[2021-10-22 15:35] LABS: BILIRUBIN,TOTAL 0.5 mg/dL (0.2-1); TOT PROT 5.3 g/dl (6.4-8.2)
[2021-10-22] MEDS: ACETAMINOPHEN 325 MG TABLET (FP) PO PRN (16:47)
[2021-10-22] MEDS: hydrALAZINE HCL 20 MG/ML VIAL IVPUSH PRN (16:48)
[2021-10-22] MEDS: AMINO ACIDS 4.25%/D5W 1,000 ML IV SCH (18:32)
[2021-10-22] MEDS: MULTIVIT INJ. ADULT COMBO WITH VIT K 1 COMBO 10 ML VIAL IV SCH (18:32)
[2021-10-22] MEDS: CHLORHEXIDINE GLUCONATE 4% CLEANSER FOR DECOLONIZATION TP SCH (21:18)
[2021-10-23] MEDS ORDERED: DEXTROSE 5%-WATER - 50 ML IVPB ONE ×3 (01:35→18:07)
[2021-10-23] MEDS ORDERED: PIPERACILLIN/TAZOBACTAM 3.375 GM VIAL IVPB ONE ×3 (01:35→18:07)
[2021-10-23] MEDS: PIPERACILLIN/TAZOB 3.375 GM 3.375 GM in DEXTROSE 5%-WATER - 50 ML IVPB SCH ×3 (01:57→18:08)
[2021-10-23] MEDS: dilTIAZem HCL 30 MG TABLET PO SCH ×4 (06:23→23:11)
[2021-10-23 07:28] LABS: HEMATOCRIT 25.3 % (35.4-49); HEMOGLOBIN 8.5 GM/dL (11.7-16.9); MCH 28.3 pg (25.7-33.7); MCHC 33.6 g/dl (32.0-35.9); MEAN CELL VOLUME 84.4 fl (80-96); MEAN PLT VOLUME 9.4 fl (7.5-11.1); PLATELET COUNT 153 10^3/uL (134-434); RDW 16.5 % (11.9-15.9); WHITE BLOOD COUNT 10.6 K/mm3 (4.0-10.0)
[2021-10-23 07:45] LABS: CALCIUM 7.4 mg/dL (8.5-10.1)
[2021-10-23 07:46] LABS: ALBUMIN 1.9 g/dl (3.4-5.0); BLOOD UREA NITROGEN 38.4 mg/dL (7-18); MAGNESIUM 2.3 mg/dL (1.8-2.4)
[2021-10-23 07:49] LABS: CREATININE 0.4 mg/dL (0.55-1.3); PHOSPHOROUS 2.7 mg/dL (2.5-4.9)
[2021-10-23 07:50] LABS: TOT PROT 4.9 g/dl (6.4-8.2)
[2021-10-23 07:51] LABS: BILIRUBIN,TOTAL 0.4 mg/dL (0.2-1)
[2021-10-23] MEDS ORDERED: POTASSIUM CHLORIDE ORAL LIQUID 20 MEQ/15 ML PO ONE (08:15)
[2021-10-23] MEDS: BUDESONIDE 0.25 MG/2ML INH SUSP VIAL NEB SCH ×2 (08:15→20:23)
[2021-10-23] MEDS: ARFORMOTEROL TARTRATE 15 MCG/2 ML VIAL NEB SCH ×2 (08:15→20:22)
[2021-10-23] MEDS: AMINO ACIDS/PROTEIN HYDROLYS 30 ML LIQUID.PKT PO SCH (08:53)
[2021-10-23] MEDS: AMINO ACIDS 4.25%/D5W 1,000 ML IV SCH (09:00)
[2021-10-23] MEDS: MULTIVIT INJ. ADULT COMBO WITH VIT K 1 COMBO 10 ML VIAL IV SCH (09:00)
[2021-10-23 09:28] LABS: ANISOCYTOSIS 1+; MACROCYTOSIS 0; PLATELET ESTIMATE NORMAL
[2021-10-23] MEDS: FUROSEMIDE 40 MG/4 ML INJECTABLE VIAL IVPUSH SCH (09:35)
[2021-10-23] MEDS: PANTOPRAZOLE SODIUM 40 MG VIAL IVPUSH SCH (09:37)
[2021-10-23] MEDS: ENOXAPARIN NA (PORCINE) 40 MG/0.4 ML DISP.SYRIN SQ SCH (09:37)
[2021-10-23] MEDS: methylPREDNISolone NA SUCC 40 MG/1 ML VIAL IVPUSH SCH (09:37)
[2021-10-23] MEDS: amLODIPine BESYLATE 10 MG TABLET (FP) PO SCH (09:38)
[2021-10-23] MEDS: SENNOSIDES/DOCUSATE COMBO (SENNA PLUS) TABLET (UD) PO SCH ×2 (09:38→23:11)
[2021-10-23] MEDS: POLYETHYLENE GLYCOL (HEALTHYLAX) 3350 17 GM PACKET PO SCH ×2 (14:00→23:11)
[2021-10-23] MEDS: CHLORHEXIDINE GLUCONATE 4% CLEANSER FOR DECOLONIZATION TP SCH (23:11)
[2021-10-24] MEDS ORDERED: PIPERACILLIN/TAZOBACTAM 3.375 GM VIAL IVPB ONE ×3 (01:06→16:18)
[2021-10-24] MEDS ORDERED: DEXTROSE 5%-WATER - 50 ML IVPB ONE ×3 (01:07→16:18)
[2021-10-24] MEDS: PIPERACILLIN/TAZOB 3.375 GM 3.375 GM in DEXTROSE 5%-WATER - 50 ML IVPB SCH ×3 (01:21→18:19)
[2021-10-24] MEDS: dilTIAZem HCL 30 MG TABLET PO SCH ×3 (05:26→23:32)
[2021-10-24 06:38] LABS: ALBUMIN 1.9 g/dl (3.4-5.0); BLOOD UREA NITROGEN 36.7 mg/dL (7-18); MAGNESIUM 2.4 mg/dL (1.8-2.4)
[2021-10-24 06:40] LABS: HEMATOCRIT 24.8 % (35.4-49); MCH 27.6 pg (25.7-33.7); MCHC 32.3 g/dl (32.0-35.9); MEAN CELL VOLUME 85.5 fl (80-96); MEAN PLT VOLUME 9.3 fl (7.5-11.1); PLATELET COUNT 151 10^3/uL (134-434); RDW 16.8 % (11.9-15.9); WHITE BLOOD COUNT 11.3 K/mm3 (4.0-10.0)
[2021-10-24 06:41] LABS: CREATININE 0.5 mg/dL (0.55-1.3); PHOSPHOROUS 2.1 mg/dL (2.5-4.9)
[2021-10-24 06:43] LABS: BILIRUBIN,TOTAL 0.4 mg/dL (0.2-1); TOT PROT 4.9 g/dl (6.4-8.2)
[2021-10-24] MEDS: ARFORMOTEROL TARTRATE 15 MCG/2 ML VIAL NEB SCH ×2 (08:35→20:10)
[2021-10-24] MEDS: BUDESONIDE 0.25 MG/2ML INH SUSP VIAL NEB SCH ×2 (08:36→20:10)
[2021-10-24] MEDS ORDERED: NAPH,MB-DB/K PH,MBDB POWDER PACKET PO ONE (09:15)
[2021-10-24] MEDS: PANTOPRAZOLE SODIUM 40 MG VIAL IVPUSH SCH (10:14)
[2021-10-24] MEDS: SENNOSIDES/DOCUSATE COMBO (SENNA PLUS) TABLET (UD) PO SCH ×2 (10:15→22:34)
[2021-10-24] MEDS: FUROSEMIDE 40 MG/4 ML INJECTABLE VIAL IVPUSH SCH (10:16)
[2021-10-24] MEDS: POLYETHYLENE GLYCOL (HEALTHYLAX) 3350 17 GM PACKET PO SCH ×2 (10:16→22:34)
[2021-10-24] MEDS: ENOXAPARIN NA (PORCINE) 40 MG/0.4 ML DISP.SYRIN SQ SCH (10:16)
[2021-10-24 10:17] LABS: ANISOCYTOSIS 0; MACROCYTOSIS 0
[2021-10-24] MEDS: amLODIPine BESYLATE 10 MG TABLET (FP) PO SCH (10:17)
[2021-10-24] MEDS: AMINO ACIDS/PROTEIN HYDROLYS 30 ML LIQUID.PKT PO SCH (10:58)
[2021-10-24] MEDS: ACETAMINOPHEN 325 MG TABLET (FP) PO PRN (16:26)
[2021-10-24] MEDS: MULTIVIT INJ. ADULT COMBO WITH VIT K 1 COMBO 10 ML VIAL IV SCH (18:20)
[2021-10-24] MEDS: AMINO ACIDS 4.25%/D5W 1,000 ML IV SCH (18:20)
[2021-10-24] MEDS: CHLORHEXIDINE GLUCONATE 4% CLEANSER FOR DECOLONIZATION TP SCH (22:34)
[2021-10-25] MEDS: PIPERACILLIN/TAZOB 3.375 GM 3.375 GM in DEXTROSE 5%-WATER - 50 ML IVPB SCH ×3 (02:45→17:06)
[2021-10-25] MEDS ORDERED: PIPERACILLIN/TAZOBACTAM 3.375 GM VIAL IVPB ONE ×3 (03:13→16:33)
[2021-10-25] MEDS ORDERED: DEXTROSE 5%-WATER - 50 ML IVPB ONE ×3 (03:13→16:33)
[2021-10-25] MEDS: dilTIAZem HCL 30 MG TABLET PO SCH ×3 (05:02→17:06)
[2021-10-25] MEDS ORDERED: hydrALAZINE HCL 20 MG/ML VIAL IVPUSH PRN (06:57)
[2021-10-25] MEDS ORDERED: ALBUTEROL SO4 HFA INHALER IH PRN (06:57)
[2021-10-25 07:13] LABS: BASO % 0.3 % (0-2.0); EOS % 0.4 % (0-4.5); HEMATOCRIT 23.7 % (35.4-49); HEMOGLOBIN 7.8 GM/dL (11.7-16.9); LYMPH % 6.9 % (8-40); MCH 28.2 pg (25.7-33.7); MCHC 33.1 g/dl (32.0-35.9); MEAN CELL VOLUME 85.2 fl (80-96); MEAN PLT VOLUME 9.6 fl (7.5-11.1); MONO % 2.9 % (3.8-10.2); NEUT % 89.5 % (42.8-82.8); PLATELET COUNT 160 10^3/uL (134-434); RBC 2.78 M/mm3 (4.00-5.60); RDW 16.4 % (11.9-15.9); WHITE BLOOD COUNT 8.8 K/mm3 (4.0-10.0)
[2021-10-25 07:29] LABS: INR 1.19 (0.83-1.09); PROTHROMBIN TIME (PATIENT) 13.7 SEC (9.7-13.0)
[2021-10-25 07:31] LABS: ACTIVATED PTT 27.9 SECONDS (25.2-36.5)
[2021-10-25] MEDS: ARFORMOTEROL TARTRATE 15 MCG/2 ML VIAL NEB SCH ×2 (08:15→20:43)
[2021-10-25] MEDS: BUDESONIDE 0.25 MG/2ML INH SUSP VIAL NEB SCH ×2 (08:25→20:43)
[2021-10-25] MEDS: POLYETHYLENE GLYCOL (HEALTHYLAX) 3350 17 GM PACKET PO SCH ×2 (09:13→21:13)
[2021-10-25] MEDS: FUROSEMIDE 40 MG/4 ML INJECTABLE VIAL IVPUSH SCH (09:41)
[2021-10-25] MEDS: PANTOPRAZOLE SODIUM 40 MG VIAL IVPUSH SCH (09:42)
[2021-10-25] MEDS: SENNOSIDES/DOCUSATE COMBO (SENNA PLUS) TABLET (UD) PO SCH ×2 (09:42→21:14)
[2021-10-25] MEDS: amLODIPine BESYLATE 10 MG TABLET (FP) PO SCH (09:42)
[2021-10-25] MEDS: ENOXAPARIN NA (PORCINE) 40 MG/0.4 ML DISP.SYRIN SQ SCH (09:43)
[2021-10-25] MEDS: ACETAMINOPHEN 325 MG TABLET (FP) PO PRN ×2 (09:50→17:05)
[2021-10-25 14:32] LABS: BLOOD UREA NITROGEN 25.2 mg/dL (7-18); CALCIUM 7.7 mg/dL (8.5-10.1)
[2021-10-25 14:35] LABS: CREATININE 0.5 mg/dL (0.55-1.3)
[2021-10-25] MEDS ORDERED: MULTIVIT INJ. ADULT COMBO WITH VIT K 1 COMBO 10 ML VIAL IV SCH (17:30)
[2021-10-25] MEDS ORDERED: AMINO ACIDS 4.25%/D5W 1,000 ML IV SCH (18:30)
[2021-10-26] MEDS: dilTIAZem HCL 30 MG TABLET PO SCH ×5 (00:07→23:01)
[2021-10-26] MEDS ORDERED: DEXTROSE 5%-WATER - 50 ML IVPB ONE ×3 (01:01→17:53)
[2021-10-26] MEDS ORDERED: PIPERACILLIN/TAZOBACTAM 3.375 GM VIAL IVPB ONE ×3 (01:01→17:52)
[2021-10-26] MEDS: PIPERACILLIN/TAZOB 3.375 GM 3.375 GM in DEXTROSE 5%-WATER - 50 ML IVPB SCH ×3 (02:10→18:49)
[2021-10-26 06:53] LABS: BASO % 0.9 % (0-2.0); HEMOGLOBIN 7.6 GM/dL (11.7-16.9); MCH 28.1 pg (25.7-33.7); MCHC 33.2 g/dl (32.0-35.9); MEAN CELL VOLUME 84.5 fl (80-96); MEAN PLT VOLUME 9.1 fl (7.5-11.1); MONO % 2.5 % (3.8-10.2); NEUT % 85.6 % (42.8-82.8); PLATELET COUNT 172 10^3/uL (134-434); RBC 2.72 M/mm3 (4.00-5.60); RDW 16.9 % (11.9-15.9); WHITE BLOOD COUNT 7.4 K/mm3 (4.0-10.0)
[2021-10-26 07:19] LABS: ALBUMIN 1.6 g/dl (3.4-5.0); CALCIUM 7.4 mg/dL (8.5-10.1); MAGNESIUM 2.3 mg/dL (1.8-2.4)
[2021-10-26 07:20] LABS: BLOOD UREA NITROGEN 21.3 mg/dL (7-18)
[2021-10-26 07:22] LABS: CREATININE 0.4 mg/dL (0.55-1.3)
[2021-10-26 07:23] LABS: PHOSPHOROUS 2.4 mg/dL (2.5-4.9)
[2021-10-26 07:24] LABS: BILIRUBIN,TOTAL 0.3 mg/dL (0.2-1)
[2021-10-26] MEDS: ARFORMOTEROL TARTRATE 15 MCG/2 ML VIAL NEB SCH ×3 (08:05→21:24)
[2021-10-26] MEDS: BUDESONIDE 0.25 MG/2ML INH SUSP VIAL NEB SCH ×2 (08:15→20:20)
[2021-10-26] MEDS: FUROSEMIDE 40 MG/4 ML INJECTABLE VIAL IVPUSH SCH (10:47)
[2021-10-26] MEDS: POLYETHYLENE GLYCOL (HEALTHYLAX) 3350 17 GM PACKET PO SCH ×2 (11:00→23:01)
[2021-10-26] MEDS: ENOXAPARIN NA (PORCINE) 40 MG/0.4 ML DISP.SYRIN SQ SCH (11:47)
[2021-10-26] MEDS: amLODIPine BESYLATE 10 MG TABLET (FP) PO SCH (11:47)
[2021-10-26] MEDS: SENNOSIDES/DOCUSATE COMBO (SENNA PLUS) TABLET (UD) PO SCH ×2 (11:48→23:01)
[2021-10-26] MEDS: PANTOPRAZOLE SODIUM 40 MG VIAL IVPUSH SCH (11:48)
[2021-10-27] MEDS ORDERED: PIPERACILLIN/TAZOBACTAM 3.375 GM VIAL IVPB ONE ×3 (01:11→17:09)
[2021-10-27] MEDS ORDERED: DEXTROSE 5%-WATER - 50 ML IVPB ONE ×3 (01:12→17:10)
[2021-10-27] MEDS: PIPERACILLIN/TAZOB 3.375 GM 3.375 GM in DEXTROSE 5%-WATER - 50 ML IVPB SCH ×3 (01:16→17:31)
[2021-10-27] MEDS: dilTIAZem HCL 30 MG TABLET PO SCH ×4 (06:12→23:37)
[2021-10-27 07:22] LABS: HEMATOCRIT 22.4 % (35.4-49); HEMOGLOBIN 7.7 GM/dL (11.7-16.9); MCH 28.6 pg (25.7-33.7); MCHC 34.2 g/dl (32.0-35.9); MEAN CELL VOLUME 83.8 fl (80-96); PLATELET COUNT 199 10^3/uL (134-434); RBC 2.68 M/mm3 (4.00-5.60); RDW 16.3 % (11.9-15.9); WHITE BLOOD COUNT 6.8 K/mm3 (4.0-10.0)
[2021-10-27 07:55] LABS: CALCIUM 7.6 mg/dL (8.5-10.1); MAGNESIUM 2.4 mg/dL (1.8-2.4)
[2021-10-27 07:56] LABS: BLOOD UREA NITROGEN 20.3 mg/dL (7-18)
[2021-10-27 07:59] LABS: CREATININE 0.4 mg/dL (0.55-1.3); PHOSPHOROUS 2.7 mg/dL (2.5-4.9)
[2021-10-27] MEDS: PANTOPRAZOLE SODIUM 40 MG VIAL IVPUSH SCH (09:11)
[2021-10-27] MEDS: SENNOSIDES/DOCUSATE COMBO (SENNA PLUS) TABLET (UD) PO SCH ×2 (09:11→21:53)
[2021-10-27] MEDS: FUROSEMIDE 40 MG/4 ML INJECTABLE VIAL IVPUSH SCH (09:11)
[2021-10-27] MEDS: amLODIPine BESYLATE 10 MG TABLET (FP) PO SCH (09:11)
[2021-10-27] MEDS: ENOXAPARIN NA (PORCINE) 40 MG/0.4 ML DISP.SYRIN SQ SCH (09:11)
[2021-10-27] MEDS: POLYETHYLENE GLYCOL (HEALTHYLAX) 3350 17 GM PACKET PO SCH ×2 (09:12→21:53)
[2021-10-27] MEDS: ACETAMINOPHEN 325 MG TABLET (FP) PO PRN ×2 (09:18→17:33)
[2021-10-27] MEDS: ARFORMOTEROL TARTRATE 15 MCG/2 ML VIAL NEB SCH ×2 (09:44→19:57)
[2021-10-27] MEDS: BUDESONIDE 0.25 MG/2ML INH SUSP VIAL NEB SCH ×2 (09:46→19:57)
[2021-10-27] MEDS: traMADol HCL 50 MG TABLET PO PRN ×2 (15:29→23:36)
[2021-10-27] MEDS: AMINO ACIDS/PROTEIN HYDROLYS 30 ML LIQUID.PKT PO SCH (17:31)
[2021-10-28] MEDS ORDERED: PIPERACILLIN/TAZOBACTAM 3.375 GM VIAL IVPB ONE ×4 (01:08→17:06)
[2021-10-28] MEDS ORDERED: DEXTROSE 5%-WATER - 50 ML IVPB ONE ×4 (01:08→17:07)
[2021-10-28] MEDS: PIPERACILLIN/TAZOB 3.375 GM 3.375 GM in DEXTROSE 5%-WATER - 50 ML IVPB SCH ×3 (01:35→17:10)
[2021-10-28] MEDS: dilTIAZem HCL 30 MG TABLET PO SCH ×4 (06:38→23:50)
[2021-10-28 08:04] LABS: BLOOD UREA NITROGEN 17.2 mg/dL (7-18); MAGNESIUM 2.1 mg/dL (1.8-2.4)
[2021-10-28 08:05] LABS: CALCIUM 7.6 mg/dL (8.5-10.1)
[2021-10-28 08:07] LABS: CREATININE 0.4 mg/dL (0.55-1.3)
[2021-10-28 08:10] LABS: PHOSPHOROUS 3.1 mg/dL (2.5-4.9)
[2021-10-28 08:19] LABS: BASO % 1.1 % (0-2.0); EOS % 2.2 % (0-4.5); HEMATOCRIT 22.3 % (35.4-49); HEMOGLOBIN 7.5 GM/dL (11.7-16.9); LYMPH % 15.6 % (8-40); MCH 28.1 pg (25.7-33.7); MCHC 33.7 g/dl (32.0-35.9); MEAN CELL VOLUME 83.3 fl (80-96); MEAN PLT VOLUME 8.9 fl (7.5-11.1); MONO % 3.1 % (3.8-10.2); PLATELET COUNT 220 10^3/uL (134-434); RBC 2.68 M/mm3 (4.00-5.60); RDW 16.2 % (11.9-15.9); WHITE BLOOD COUNT 5.6 K/mm3 (4.0-10.0)
[2021-10-28] MEDS: ARFORMOTEROL TARTRATE 15 MCG/2 ML VIAL NEB SCH ×2 (08:20→20:45)
[2021-10-28] MEDS: BUDESONIDE 0.25 MG/2ML INH SUSP VIAL NEB SCH ×2 (08:30→20:45)
[2021-10-28] MEDS: FUROSEMIDE 40 MG/4 ML INJECTABLE VIAL IVPUSH SCH (10:18)
[2021-10-28] MEDS: PANTOPRAZOLE SODIUM 40 MG VIAL IVPUSH SCH (10:18)
[2021-10-28] MEDS: SENNOSIDES/DOCUSATE COMBO (SENNA PLUS) TABLET (UD) PO SCH ×2 (10:18→22:00)
[2021-10-28] MEDS: AMINO ACIDS/PROTEIN HYDROLYS 30 ML LIQUID.PKT PO SCH ×2 (10:18→17:10)
[2021-10-28] MEDS: amLODIPine BESYLATE 10 MG TABLET (FP) PO SCH (10:18)
[2021-10-28] MEDS: ENOXAPARIN NA (PORCINE) 40 MG/0.4 ML DISP.SYRIN SQ SCH (10:19)
[2021-10-28] MEDS: POLYETHYLENE GLYCOL (HEALTHYLAX) 3350 17 GM PACKET PO SCH ×2 (10:19→22:00)
[2021-10-28] MEDS: ACETAMINOPHEN 325 MG TABLET (FP) PO PRN (22:51)
[2021-10-29] MEDS: PIPERACILLIN/TAZOB 3.375 GM 3.375 GM in DEXTROSE 5%-WATER - 50 ML IVPB SCH ×3 (01:30→17:06)
[2021-10-29] MEDS ORDERED: DEXTROSE 5%-WATER - 50 ML IVPB ONE ×3 (05:28→16:36)
[2021-10-29] MEDS ORDERED: PIPERACILLIN/TAZOBACTAM 3.375 GM VIAL IVPB ONE ×3 (05:28→16:36)
[2021-10-29] MEDS: traMADol HCL 50 MG TABLET PO PRN ×3 (05:46→21:41)
[2021-10-29] MEDS: dilTIAZem HCL 30 MG TABLET PO SCH ×3 (05:46→17:06)
[2021-10-29 07:11] LABS: BLOOD UREA NITROGEN 15.6 mg/dL (7-18); CALCIUM 7.6 mg/dL (8.5-10.1); MAGNESIUM 2.1 mg/dL (1.8-2.4)
[2021-10-29 07:15] LABS: CREATININE 0.3 mg/dL (0.55-1.3); PHOSPHOROUS 2.8 mg/dL (2.5-4.9)
[2021-10-29] MEDS: ARFORMOTEROL TARTRATE 15 MCG/2 ML VIAL NEB SCH ×2 (07:30→20:49)
[2021-10-29] MEDS: BUDESONIDE 0.25 MG/2ML INH SUSP VIAL NEB SCH ×2 (07:30→20:49)
[2021-10-29] MEDS: ACETAMINOPHEN 325 MG TABLET (FP) PO PRN ×3 (08:27→21:42)
[2021-10-29] MEDS: AMINO ACIDS/PROTEIN HYDROLYS 30 ML LIQUID.PKT PO SCH ×2 (08:27→16:40)
[2021-10-29] MEDS: amLODIPine BESYLATE 10 MG TABLET (FP) PO SCH (09:11)
[2021-10-29] MEDS: POLYETHYLENE GLYCOL (HEALTHYLAX) 3350 17 GM PACKET PO SCH ×2 (09:11→21:39)
[2021-10-29] MEDS: ENOXAPARIN NA (PORCINE) 40 MG/0.4 ML DISP.SYRIN SQ SCH (09:11)
[2021-10-29] MEDS: SENNOSIDES/DOCUSATE COMBO (SENNA PLUS) TABLET (UD) PO SCH ×2 (09:12→21:39)
[2021-10-29] MEDS: PANTOPRAZOLE SODIUM 40 MG VIAL IVPUSH SCH (09:12)
[2021-10-29] MEDS ORDERED: IRON SUCROSE INJECTION 300 MG in SODIUM CHLORIDE 235 ML IVPB ONE (14:00)
[2021-10-30] MEDS ORDERED: PIPERACILLIN/TAZOBACTAM 3.375 GM VIAL IVPB ONE ×4 (01:01→21:24)
[2021-10-30] MEDS ORDERED: DEXTROSE 5%-WATER - 50 ML IVPB ONE ×4 (01:01→21:24)
[2021-10-30] MEDS: dilTIAZem HCL 30 MG TABLET PO SCH ×5 (01:05→23:10)
[2021-10-30] MEDS: PIPERACILLIN/TAZOB 3.375 GM 3.375 GM in DEXTROSE 5%-WATER - 50 ML IVPB SCH ×3 (01:05→17:26)
[2021-10-30] MEDS: traMADol HCL 50 MG TABLET PO PRN ×3 (04:44→22:36)
[2021-10-30] MEDS: ACETAMINOPHEN 325 MG TABLET (FP) PO PRN ×2 (04:45→12:00)
[2021-10-30] MEDS: ARFORMOTEROL TARTRATE 15 MCG/2 ML VIAL NEB SCH ×2 (08:50→20:05)
[2021-10-30] MEDS: BUDESONIDE 0.25 MG/2ML INH SUSP VIAL NEB SCH ×2 (08:50→20:05)
[2021-10-30] MEDS: AMINO ACIDS/PROTEIN HYDROLYS 30 ML LIQUID.PKT PO SCH ×2 (09:07→17:26)
[2021-10-30] MEDS: PANTOPRAZOLE SODIUM 40 MG VIAL IVPUSH SCH (09:08)
[2021-10-30] MEDS: ENOXAPARIN NA (PORCINE) 40 MG/0.4 ML DISP.SYRIN SQ SCH (09:08)
[2021-10-30] MEDS: amLODIPine BESYLATE 10 MG TABLET (FP) PO SCH (09:08)
[2021-10-30] MEDS: BACITRACIN 15 GM TUBE TOPICAL OINTMENT TP SCH (09:08)
[2021-10-30] MEDS: SENNOSIDES/DOCUSATE COMBO (SENNA PLUS) TABLET (UD) PO SCH ×2 (09:09→21:26)
[2021-10-30] MEDS: POLYETHYLENE GLYCOL (HEALTHYLAX) 3350 17 GM PACKET PO SCH ×2 (09:09→21:26)
[2021-10-31] MEDS: PIPERACILLIN/TAZOB 3.375 GM 3.375 GM in DEXTROSE 5%-WATER - 50 ML IVPB SCH ×3 (01:53→18:12)
[2021-10-31] MEDS: dilTIAZem HCL 30 MG TABLET PO SCH ×4 (06:47→23:57)
[2021-10-31] MEDS: ARFORMOTEROL TARTRATE 15 MCG/2 ML VIAL NEB SCH ×2 (07:58→20:50)
[2021-10-31] MEDS: BUDESONIDE 0.25 MG/2ML INH SUSP VIAL NEB SCH ×2 (07:59→20:50)
[2021-10-31] MEDS: AMINO ACIDS/PROTEIN HYDROLYS 30 ML LIQUID.PKT PO SCH ×2 (09:00→18:12)
[2021-10-31] MEDS ORDERED: PIPERACILLIN/TAZOBACTAM 3.375 GM VIAL IVPB ONE ×2 (09:11→17:41)
[2021-10-31] MEDS ORDERED: DEXTROSE 5%-WATER - 50 ML IVPB ONE ×2 (09:11→17:41)
[2021-10-31] MEDS: amLODIPine BESYLATE 10 MG TABLET (FP) PO SCH (10:00)
[2021-10-31] MEDS: FERROUS SO4 300 MG/5 ML ORAL SOLN UNIT DOSE CUPS NGT SCH (10:00)
[2021-10-31] MEDS: BACITRACIN 15 GM TUBE TOPICAL OINTMENT TP SCH (10:00)
[2021-10-31] MEDS: traMADol HCL 50 MG TABLET PO PRN ×2 (10:10→23:57)
[2021-10-31] MEDS: ENOXAPARIN NA (PORCINE) 40 MG/0.4 ML DISP.SYRIN SQ SCH (10:20)
[2021-10-31] MEDS: POLYETHYLENE GLYCOL (HEALTHYLAX) 3350 17 GM PACKET PO SCH ×2 (10:20→23:56)
[2021-10-31] MEDS: SENNOSIDES/DOCUSATE COMBO (SENNA PLUS) TABLET (UD) PO SCH ×2 (10:21→23:56)
[2021-10-31 18:39] LABS: HEMATOCRIT 23.4 % (35.4-49); HEMOGLOBIN 7.8 GM/dL (11.7-16.9); MCH 28.5 pg (25.7-33.7); MCHC 33.4 g/dl (32.0-35.9); MEAN CELL VOLUME 85.2 fl (80-96); MEAN PLT VOLUME 8.2 fl (7.5-11.1); PLATELET COUNT 376 10^3/uL (134-434); RBC 2.74 M/mm3 (4.00-5.60); RDW 17.1 % (11.9-15.9); WHITE BLOOD COUNT 5.9 K/mm3 (4.0-10.0)
[2021-10-31 19:01] LABS: CALCIUM 8.2 mg/dL (8.5-10.1)
[2021-10-31 19:03] LABS: ALBUMIN 1.9 g/dl (3.4-5.0); BLOOD UREA NITROGEN 12.8 mg/dL (7-18); MAGNESIUM 2.1 mg/dL (1.8-2.4)
[2021-10-31 19:05] LABS: CREATININE 0.3 mg/dL (0.55-1.3)
[2021-10-31 19:07] LABS: BILIRUBIN,TOTAL 0.2 mg/dL (0.2-1); TOT PROT 5.7 g/dl (6.4-8.2)
[2021-10-31 20:54] LABS: ANISOCYTOSIS 0; HELMET CELLS 0; HOWELL-JOLLY BODIES 0; MACROCYTOSIS 0; OVALOCYTE 0; ROULEAU 0; SICKELED CELLS 0; TARGET CELLS 0; TEAR DROP CELLS 0; TOXIC GRANULATION 0
[2021-11-01] MEDS ORDERED: PIPERACILLIN/TAZOBACTAM 3.375 GM VIAL IVPB ONE ×2 (01:21→09:20)
[2021-11-01] MEDS ORDERED: DEXTROSE 5%-WATER - 50 ML IVPB ONE ×2 (01:22→09:20)
[2021-11-01] MEDS: PIPERACILLIN/TAZOB 3.375 GM 3.375 GM in DEXTROSE 5%-WATER - 50 ML IVPB SCH (01:27)
[2021-11-01] MEDS: dilTIAZem HCL 30 MG TABLET PO SCH ×4 (05:37→23:03)
[2021-11-01] MEDS: traMADol HCL 50 MG TABLET PO PRN ×2 (08:05→23:00)
[2021-11-01 08:22] LABS: HEMATOCRIT 23.2 % (35.4-49); HEMOGLOBIN 7.8 GM/dL (11.7-16.9); MCH 28.6 pg (25.7-33.7); MCHC 33.6 g/dl (32.0-35.9); MEAN PLT VOLUME 8.2 fl (7.5-11.1); PLATELET COUNT 401 10^3/uL (134-434); RBC 2.73 M/mm3 (4.00-5.60); RDW 17.1 % (11.9-15.9)
[2021-11-01] MEDS: AMINO ACIDS/PROTEIN HYDROLYS 30 ML LIQUID.PKT PO SCH ×2 (08:35→17:35)
[2021-11-01] MEDS: ARFORMOTEROL TARTRATE 15 MCG/2 ML VIAL NEB SCH ×2 (09:10→20:25)
[2021-11-01] MEDS: BUDESONIDE 0.25 MG/2ML INH SUSP VIAL NEB SCH ×2 (09:10→20:25)
[2021-11-01] MEDS: FERROUS SO4 300 MG/5 ML ORAL SOLN UNIT DOSE CUPS NGT SCH (09:31)
[2021-11-01] MEDS: amLODIPine BESYLATE 10 MG TABLET (FP) PO SCH (09:31)
[2021-11-01] MEDS: SENNOSIDES/DOCUSATE COMBO (SENNA PLUS) TABLET (UD) PO SCH ×2 (09:31→21:51)
[2021-11-01] MEDS: BACITRACIN 15 GM TUBE TOPICAL OINTMENT TP SCH (09:33)
[2021-11-01] MEDS: POLYETHYLENE GLYCOL (HEALTHYLAX) 3350 17 GM PACKET PO SCH ×2 (09:34→21:51)
[2021-11-01] MEDS: ENOXAPARIN NA (PORCINE) 40 MG/0.4 ML DISP.SYRIN SQ SCH (09:34)
[2021-11-01] MEDS ORDERED: PANTOPRAZOLE SODIUM 40 MG VIAL IVPUSH SCH (10:00)
[2021-11-01] MEDS: ACETAMINOPHEN 650 MG/20.3 ML ORAL SOLUTION (CUPS) PO PRN (13:18)
[2021-11-02] MEDS ORDERED: EPINEPHrine 1:10,000 (P-F SYR) 1 MG/10 ML DISP.SYRIN ONE (02:12)
[2021-11-02] MEDS: dilTIAZem HCL 30 MG TABLET PO SCH (06:09)
[2021-11-02 06:43] LABS: HEMATOCRIT 25.7 % (35.4-49); HEMOGLOBIN 8.2 GM/dL (11.7-16.9); MCH 27.8 pg (25.7-33.7); MCHC 32.1 g/dl (32.0-35.9); MEAN CELL VOLUME 86.5 fl (80-96); MEAN PLT VOLUME 7.9 fl (7.5-11.1); PLATELET COUNT 451 10^3/uL (134-434); RBC 2.97 M/mm3 (4.00-5.60); RDW 17.2 % (11.9-15.9); WHITE BLOOD COUNT 5.2 K/mm3 (4.0-10.0)
[2021-11-02 07:00] LABS: CALCIUM 8.5 mg/dL (8.5-10.1)
[2021-11-02 07:01] LABS: BLOOD UREA NITROGEN 14.1 mg/dL (7-18); MAGNESIUM 2.1 mg/dL (1.8-2.4)
[2021-11-02 07:04] LABS: CREATININE 0.3 mg/dL (0.55-1.3); PHOSPHOROUS 3.6 mg/dL (2.5-4.9)
[2021-11-02] MEDS: ARFORMOTEROL TARTRATE 15 MCG/2 ML VIAL NEB SCH ×2 (08:32→20:00)
[2021-11-02] MEDS: BUDESONIDE 0.25 MG/2ML INH SUSP VIAL NEB SCH ×2 (08:33→20:00)
[2021-11-02] MEDS: ENOXAPARIN NA (PORCINE) 40 MG/0.4 ML DISP.SYRIN SQ SCH (09:06)
[2021-11-02] MEDS: AMINO ACIDS/PROTEIN HYDROLYS 30 ML LIQUID.PKT PO SCH ×2 (09:06→17:54)
[2021-11-02] MEDS: traMADol HCL 50 MG TABLET PO PRN (09:07)
[2021-11-02] MEDS: amLODIPine BESYLATE 10 MG TABLET (FP) PO SCH (09:08)
[2021-11-02] MEDS: BACITRACIN 15 GM TUBE TOPICAL OINTMENT TP SCH (09:08)
[2021-11-02] MEDS: PANTOPRAZOLE 40 MG TABLET PO SCH (09:08)
[2021-11-02] MEDS: FERROUS SO4 300 MG/5 ML ORAL SOLN UNIT DOSE CUPS NGT SCH (09:08)
[2021-11-02] MEDS: POLYETHYLENE GLYCOL (HEALTHYLAX) 3350 17 GM PACKET PO SCH ×2 (09:09→21:12)
[2021-11-02] MEDS: SENNOSIDES/DOCUSATE COMBO (SENNA PLUS) TABLET (UD) PO SCH ×2 (09:09→21:12)
[2021-11-02] MEDS: NEBIVOLOL 5 MG TABLET (FP) PO SCH (12:07)
[2021-11-02] MEDS ORDERED: traMADol HCL 50 MG TABLET PO PRN ×2 (17:00)
[2021-11-02] MEDS: ACETYLCYSTEINE 20% 200MG/ML 4 ML VIAL *FOR ORAL / INH USE ONLY NEB SCH (20:00)
[2021-11-02] MEDS: ALBUTEROL SO4 2.5/IPRATROPIUM 0.5 INH SOL 3 ML VIAL.NEB. NEB SCH (20:00)
[2021-11-03 07:25] LABS: PHOSPHOROUS 3.3 mg/dL (2.5-4.9)
[2021-11-03 07:26] LABS: ALBUMIN 1.9 g/dl (3.4-5.0); BLOOD UREA NITROGEN 13.2 mg/dL (7-18); CREATININE 0.4 mg/dL (0.55-1.3); TOT PROT 5.9 g/dl (6.4-8.2)
[2021-11-03 07:27] LABS: BILIRUBIN,TOTAL 0.3 mg/dL (0.2-1)
[2021-11-03 07:28] LABS: CALCIUM 8.1 mg/dL (8.5-10.1); MAGNESIUM 1.9 mg/dL (1.8-2.4)
[2021-11-03] MEDS: ARFORMOTEROL TARTRATE 15 MCG/2 ML VIAL NEB SCH (07:30)
[2021-11-03] MEDS: ALBUTEROL SO4 2.5/IPRATROPIUM 0.5 INH SOL 3 ML VIAL.NEB. NEB SCH ×3 (07:30→20:15)
[2021-11-03] MEDS: ACETYLCYSTEINE 20% 200MG/ML 4 ML VIAL *FOR ORAL / INH USE ONLY NEB SCH ×2 (07:30→11:39)
[2021-11-03] MEDS: BUDESONIDE 0.25 MG/2ML INH SUSP VIAL NEB SCH (07:30)
[2021-11-03] MEDS: traMADol HCL 50 MG TABLET PO SCH ×3 (10:52→21:31)
[2021-11-03] MEDS: BACITRACIN 15 GM TUBE TOPICAL OINTMENT TP SCH (10:55)
[2021-11-03] MEDS: AMINO ACIDS/PROTEIN HYDROLYS 30 ML LIQUID.PKT PO SCH ×2 (10:55→18:00)
[2021-11-03] MEDS: ENOXAPARIN NA (PORCINE) 40 MG/0.4 ML DISP.SYRIN SQ SCH (10:56)
[2021-11-03] MEDS: SENNOSIDES/DOCUSATE COMBO (SENNA PLUS) TABLET (UD) PO SCH ×2 (10:57→21:32)
[2021-11-03] MEDS: amLODIPine BESYLATE 10 MG TABLET (FP) PO SCH (10:57)
[2021-11-03] MEDS: POLYETHYLENE GLYCOL (HEALTHYLAX) 3350 17 GM PACKET PO SCH ×2 (10:57→21:32)
[2021-11-03] MEDS: PANTOPRAZOLE 40 MG TABLET PO SCH (10:57)
[2021-11-03] MEDS ORDERED: ALBUTEROL SO4 0.083% IH SOL 2.5 MG/3 ML VIAL.NEB. NEB PRN (11:52)
[2021-11-03] MEDS: NEBIVOLOL 5 MG TABLET (FP) PO SCH (12:47)
[2021-11-03] MEDS: FERROUS SO4 300 MG/5 ML ORAL SOLN UNIT DOSE CUPS NGT SCH (12:47)
[2021-11-04] MEDS: traMADol HCL 50 MG TABLET PO SCH ×4 (03:15→21:31)
[2021-11-04] MEDS: ALBUTEROL SO4 2.5/IPRATROPIUM 0.5 INH SOL 3 ML VIAL.NEB. NEB SCH ×4 (09:05→20:50)
[2021-11-04] MEDS: AMINO ACIDS/PROTEIN HYDROLYS 30 ML LIQUID.PKT PO SCH ×2 (09:46→16:41)
[2021-11-04] MEDS: FERROUS SO4 300 MG/5 ML ORAL SOLN UNIT DOSE CUPS NGT SCH (09:47)
[2021-11-04] MEDS: PANTOPRAZOLE 40 MG TABLET PO SCH (09:47)
[2021-11-04] MEDS: ENOXAPARIN NA (PORCINE) 40 MG/0.4 ML DISP.SYRIN SQ SCH (09:47)
[2021-11-04] MEDS: NEBIVOLOL 5 MG TABLET (FP) PO SCH (09:47)
[2021-11-04] MEDS: amLODIPine BESYLATE 10 MG TABLET (FP) PO SCH (09:47)
[2021-11-04] MEDS: SENNOSIDES/DOCUSATE COMBO (SENNA PLUS) TABLET (UD) PO SCH ×2 (10:00→21:01)
[2021-11-04] MEDS: BACITRACIN 15 GM TUBE TOPICAL OINTMENT TP SCH (10:00)
[2021-11-04] MEDS: POLYETHYLENE GLYCOL (HEALTHYLAX) 3350 17 GM PACKET PO SCH ×2 (10:00→21:01)
[2021-11-04] MEDS: FERROUS SO4 325 MG TABLET (FP) PO SCH (21:32)
[2021-11-04] MEDS ORDERED: FERROUS SO4 300 MG/5 ML ORAL SOLN UNIT DOSE CUPS NGT SCH (22:00)
[2021-11-05] MEDS: traMADol HCL 50 MG TABLET PO SCH ×4 (03:06→21:48)
[2021-11-05] MEDS: ALBUTEROL SO4 2.5/IPRATROPIUM 0.5 INH SOL 3 ML VIAL.NEB. NEB SCH ×3 (08:05→20:40)
[2021-11-05] MEDS: AMINO ACIDS/PROTEIN HYDROLYS 30 ML LIQUID.PKT PO SCH ×2 (08:48→18:12)
[2021-11-05] MEDS: FERROUS SO4 325 MG TABLET (FP) PO SCH ×2 (09:01→21:49)
[2021-11-05] MEDS: PANTOPRAZOLE 40 MG TABLET PO SCH (09:01)
[2021-11-05] MEDS: amLODIPine BESYLATE 10 MG TABLET (FP) PO SCH (09:01)
[2021-11-05] MEDS: SENNOSIDES/DOCUSATE COMBO (SENNA PLUS) TABLET (UD) PO SCH ×2 (09:01→21:49)
[2021-11-05] MEDS: POLYETHYLENE GLYCOL (HEALTHYLAX) 3350 17 GM PACKET PO SCH ×2 (09:01→21:49)
[2021-11-05] MEDS: BACITRACIN 15 GM TUBE TOPICAL OINTMENT TP SCH (09:02)
[2021-11-05] MEDS: ENOXAPARIN NA (PORCINE) 40 MG/0.4 ML DISP.SYRIN SQ SCH (09:02)
[2021-11-05] MEDS: NEBIVOLOL 5 MG TABLET (FP) PO SCH (09:02)
[2021-11-06] MEDS: traMADol HCL 50 MG TABLET PO SCH ×4 (02:33→21:40)
[2021-11-06 07:06] LABS: MAGNESIUM 1.7 mg/dL (1.8-2.4)
[2021-11-06 07:07] LABS: BLOOD UREA NITROGEN 10.6 mg/dL (7-18)
[2021-11-06 07:12] LABS: CREATININE 0.3 mg/dL (0.55-1.3); PHOSPHOROUS 3.2 mg/dL (2.5-4.9)
[2021-11-06] MEDS: ALBUTEROL SO4 2.5/IPRATROPIUM 0.5 INH SOL 3 ML VIAL.NEB. NEB SCH ×3 (08:05→20:07)
[2021-11-06] MEDS: AMINO ACIDS/PROTEIN HYDROLYS 30 ML LIQUID.PKT PO SCH ×2 (08:52→17:49)
[2021-11-06] MEDS ORDERED: MAGNESIUM SULF 50% (8.12 MEQ/2 ML-1 GM VIAL) IVPB ONE (10:00)
[2021-11-06] MEDS: amLODIPine BESYLATE 10 MG TABLET (FP) PO SCH (10:27)
[2021-11-06] MEDS: PANTOPRAZOLE 40 MG TABLET PO SCH (10:27)
[2021-11-06] MEDS: NEBIVOLOL 5 MG TABLET (FP) PO SCH (10:27)
[2021-11-06] MEDS: ENOXAPARIN NA (PORCINE) 40 MG/0.4 ML DISP.SYRIN SQ SCH (10:28)
[2021-11-06] MEDS: FERROUS SO4 325 MG TABLET (FP) PO SCH ×2 (10:29→22:23)
[2021-11-06] MEDS: BACITRACIN 15 GM TUBE TOPICAL OINTMENT TP SCH (10:30)
[2021-11-06] MEDS: POLYETHYLENE GLYCOL (HEALTHYLAX) 3350 17 GM PACKET PO SCH ×2 (10:30→22:24)
[2021-11-06] MEDS: SENNOSIDES/DOCUSATE COMBO (SENNA PLUS) TABLET (UD) PO SCH ×2 (10:31→22:24)
[2021-11-06 12:43] LABS: HEMATOCRIT 24.4 % (35.4-49); MCH 28.6 pg (25.7-33.7); MEAN CELL VOLUME 86.6 fl (80-96); MEAN PLT VOLUME 7.3 fl (7.5-11.1); PLATELET COUNT 445 10^3/uL (134-434); RBC 2.82 M/mm3 (4.00-5.60); RDW 18.1 % (11.9-15.9)
[2021-11-06 13:49] LABS: ANISOCYTOSIS 1+; MACROCYTOSIS 1+
[2021-11-07] MEDS: traMADol HCL 50 MG TABLET PO SCH ×4 (02:12→20:58)
[2021-11-07] MEDS: ALBUTEROL SO4 2.5/IPRATROPIUM 0.5 INH SOL 3 ML VIAL.NEB. NEB SCH ×3 (07:40→20:47)
[2021-11-07] MEDS: AMINO ACIDS/PROTEIN HYDROLYS 30 ML LIQUID.PKT PO SCH ×2 (09:00→17:41)
[2021-11-07] MEDS: amLODIPine BESYLATE 10 MG TABLET (FP) PO SCH (10:08)
[2021-11-07] MEDS: PANTOPRAZOLE 40 MG TABLET PO SCH (10:08)
[2021-11-07] MEDS: POLYETHYLENE GLYCOL (HEALTHYLAX) 3350 17 GM PACKET PO SCH ×2 (10:10→21:49)
[2021-11-07] MEDS: FERROUS SO4 325 MG TABLET (FP) PO SCH ×2 (10:10→21:49)
[2021-11-07] MEDS: SENNOSIDES/DOCUSATE COMBO (SENNA PLUS) TABLET (UD) PO SCH ×2 (10:10→21:49)
[2021-11-07] MEDS: BACITRACIN 15 GM TUBE TOPICAL OINTMENT TP SCH (10:10)
[2021-11-07] MEDS: NEBIVOLOL 5 MG TABLET (FP) PO SCH (10:13)
[2021-11-08] MEDS: traMADol HCL 50 MG TABLET PO SCH ×4 (02:01→21:12)
[2021-11-08] MEDS: ALBUTEROL SO4 2.5/IPRATROPIUM 0.5 INH SOL 3 ML VIAL.NEB. NEB SCH ×3 (08:24→20:45)
[2021-11-08] MEDS: AMINO ACIDS/PROTEIN HYDROLYS 30 ML LIQUID.PKT PO SCH ×2 (08:33→16:35)
[2021-11-08] MEDS: SENNOSIDES/DOCUSATE COMBO (SENNA PLUS) TABLET (UD) PO SCH ×2 (09:35→22:13)
[2021-11-08] MEDS: PANTOPRAZOLE 40 MG TABLET PO SCH (09:35)
[2021-11-08] MEDS: amLODIPine BESYLATE 10 MG TABLET (FP) PO SCH (09:35)
[2021-11-08] MEDS: POLYETHYLENE GLYCOL (HEALTHYLAX) 3350 17 GM PACKET PO SCH ×2 (09:35→22:13)
[2021-11-08] MEDS: FERROUS SO4 325 MG TABLET (FP) PO SCH ×2 (09:35→22:13)
[2021-11-08] MEDS: BACITRACIN 15 GM TUBE TOPICAL OINTMENT TP SCH (09:36)
[2021-11-08] MEDS: NEBIVOLOL 5 MG TABLET (FP) PO SCH (09:37)
[2021-11-08 15:55] LABS: BF GLUCOSE (CSF ONLY) 66 mg/dL (40-70)
[2021-11-08 15:57] LABS: CSF APPEARANCE CLEAR (CLEAR); CSF COLOR COLORLESS (COLORLESS); CSF WBC 0 mm3 (0-5)
[2021-11-09] MEDS: traMADol HCL 50 MG TABLET PO SCH ×4 (06:27→21:10)
[2021-11-09] MEDS: ALBUTEROL SO4 2.5/IPRATROPIUM 0.5 INH SOL 3 ML VIAL.NEB. NEB SCH ×3 (08:14→20:35)
[2021-11-09] MEDS: ACETAMINOPHEN 650 MG/20.3 ML ORAL SOLUTION (CUPS) PO PRN ×2 (10:08→16:45)
[2021-11-09] MEDS: AMINO ACIDS/PROTEIN HYDROLYS 30 ML LIQUID.PKT PO SCH ×2 (10:08→16:42)
[2021-11-09] MEDS: PANTOPRAZOLE 40 MG TABLET PO SCH (10:09)
[2021-11-09] MEDS: NEBIVOLOL 5 MG TABLET (FP) PO SCH ×2 (10:10→10:18)
[2021-11-09] MEDS: amLODIPine BESYLATE 10 MG TABLET (FP) PO SCH ×2 (10:10→10:18)
[2021-11-09] MEDS: SENNOSIDES/DOCUSATE COMBO (SENNA PLUS) TABLET (UD) PO SCH ×2 (10:10→21:12)
[2021-11-09] MEDS: BACITRACIN 15 GM TUBE TOPICAL OINTMENT TP SCH (10:11)
[2021-11-09] MEDS: FERROUS SO4 325 MG TABLET (FP) PO SCH ×2 (10:14→21:11)
[2021-11-09] MEDS: POLYETHYLENE GLYCOL (HEALTHYLAX) 3350 17 GM PACKET PO SCH ×2 (10:15→21:11)
[2021-11-10] MEDS: traMADol HCL 50 MG TABLET PO SCH (03:00)
[2021-11-10] MEDS: ALBUTEROL SO4 2.5/IPRATROPIUM 0.5 INH SOL 3 ML VIAL.NEB. NEB SCH ×3 (08:13→20:17)
[2021-11-10] MEDS: BACITRACIN 15 GM TUBE TOPICAL OINTMENT TP SCH (09:15)
[2021-11-10] MEDS: AMINO ACIDS/PROTEIN HYDROLYS 30 ML LIQUID.PKT PO SCH ×2 (09:15→18:40)
[2021-11-10] MEDS: FERROUS SO4 325 MG TABLET (FP) PO SCH ×2 (09:15→21:12)
[2021-11-10] MEDS: PANTOPRAZOLE 40 MG TABLET PO SCH (09:16)
[2021-11-10] MEDS: POLYETHYLENE GLYCOL (HEALTHYLAX) 3350 17 GM PACKET PO SCH ×3 (09:16→21:12)
[2021-11-10] MEDS: SENNOSIDES/DOCUSATE COMBO (SENNA PLUS) TABLET (UD) PO SCH ×2 (09:16→21:12)
[2021-11-10] MEDS: amLODIPine BESYLATE 10 MG TABLET (FP) PO SCH (09:20)
[2021-11-10] MEDS: NEBIVOLOL 5 MG TABLET (FP) PO SCH (09:20)
[2021-11-10] MEDS: ACETAMINOPHEN 650 MG/20.3 ML ORAL SOLUTION (CUPS) PO PRN (10:47)
[2021-11-10] MEDS: traMADol HCL 50 MG TABLET PO PRN ×2 (12:41→19:49)
[2021-11-10] MEDS: GABAPENTIN 100 MG CAPSULE PO SCH (19:48)
[2021-11-11] MEDS: ALBUTEROL SO4 2.5/IPRATROPIUM 0.5 INH SOL 3 ML VIAL.NEB. NEB SCH ×2 (07:57→14:02)
[2021-11-11] MEDS: AMINO ACIDS/PROTEIN HYDROLYS 30 ML LIQUID.PKT PO SCH ×2 (08:15→17:24)
[2021-11-11] MEDS: traMADol HCL 50 MG TABLET PO PRN ×3 (08:15→21:13)
[2021-11-11] MEDS: GABAPENTIN 100 MG CAPSULE PO SCH (09:29)
[2021-11-11] MEDS: amLODIPine BESYLATE 10 MG TABLET (FP) PO SCH (09:29)
[2021-11-11] MEDS: PANTOPRAZOLE 40 MG TABLET PO SCH (09:29)
[2021-11-11] MEDS: BACITRACIN 15 GM TUBE TOPICAL OINTMENT TP SCH (09:29)
[2021-11-11] MEDS: FERROUS SO4 325 MG TABLET (FP) PO SCH ×2 (09:29→21:14)
[2021-11-11] MEDS: SENNOSIDES/DOCUSATE COMBO (SENNA PLUS) TABLET (UD) PO SCH ×2 (09:30→21:28)
[2021-11-11] MEDS: POLYETHYLENE GLYCOL (HEALTHYLAX) 3350 17 GM PACKET PO SCH ×2 (09:30→21:28)
[2021-11-11] MEDS: NEBIVOLOL 5 MG TABLET (FP) PO SCH (09:35)
[2021-11-11 13:07] LABS: IGG CSF. 3.7 mg/dL (0.0-10.3)
[2021-11-12] MEDS: traMADol HCL 50 MG TABLET PO PRN ×3 (06:04→19:41)
[2021-11-12] MEDS: amLODIPine BESYLATE 10 MG TABLET (FP) PO SCH (09:52)
[2021-11-12] MEDS: PANTOPRAZOLE 40 MG TABLET PO SCH (09:52)
[2021-11-12] MEDS: GABAPENTIN 100 MG CAPSULE PO SCH (09:52)
[2021-11-12] MEDS: FERROUS SO4 325 MG TABLET (FP) PO SCH ×2 (09:52→21:19)
[2021-11-12] MEDS: NEBIVOLOL 5 MG TABLET (FP) PO SCH (09:52)
[2021-11-12] MEDS: AMINO ACIDS/PROTEIN HYDROLYS 30 ML LIQUID.PKT PO SCH ×2 (09:53→17:50)
[2021-11-12] MEDS: POLYETHYLENE GLYCOL (HEALTHYLAX) 3350 17 GM PACKET PO SCH ×2 (11:41→21:19)
[2021-11-12] MEDS: SENNOSIDES/DOCUSATE COMBO (SENNA PLUS) TABLET (UD) PO SCH ×2 (11:41→21:19)
[2021-11-12] MEDS: BACITRACIN 15 GM TUBE TOPICAL OINTMENT TP SCH (12:02)
[2021-11-13] MEDS: traMADol HCL 50 MG TABLET PO PRN (06:34)
[2021-11-13] MEDS: AMINO ACIDS/PROTEIN HYDROLYS 30 ML LIQUID.PKT PO SCH ×2 (08:41→16:36)
[2021-11-13] MEDS: BACITRACIN 15 GM TUBE TOPICAL OINTMENT TP SCH (10:15)
[2021-11-13] MEDS: NEBIVOLOL 5 MG TABLET (FP) PO SCH (10:16)
[2021-11-13] MEDS: SENNOSIDES/DOCUSATE COMBO (SENNA PLUS) TABLET (UD) PO SCH ×2 (10:17→21:37)
[2021-11-13] MEDS: ACETAMINOPHEN 650 MG/20.3 ML ORAL SOLUTION (CUPS) PO PRN ×3 (10:17→21:37)
[2021-11-13] MEDS: amLODIPine BESYLATE 10 MG TABLET (FP) PO SCH (10:17)
[2021-11-13] MEDS: POLYETHYLENE GLYCOL (HEALTHYLAX) 3350 17 GM PACKET PO SCH ×2 (10:17→21:37)
[2021-11-13] MEDS: GABAPENTIN 100 MG CAPSULE PO SCH (10:17)
[2021-11-13] MEDS: PANTOPRAZOLE 40 MG TABLET PO SCH (10:17)
[2021-11-13] MEDS: FERROUS SO4 325 MG TABLET (FP) PO SCH ×2 (10:17→21:37)
[2021-11-14] MEDS ORDERED: traMADol HCL 50 MG TABLET PO SCH (02:45)
[2021-11-14] MEDS: traMADol HCL 50 MG TABLET PO PRN ×3 (03:56→18:23)
[2021-11-14 07:50] LABS: BASO % 1.3 % (0-2.0); EOS % 0.3 % (0-4.5); HEMATOCRIT 25.5 % (35.4-49); HEMOGLOBIN 8.6 GM/dL (11.7-16.9); LYMPH % 19.7 % (8-40); MCHC 33.7 g/dl (32.0-35.9); MEAN CELL VOLUME 85.9 fl (80-96); MEAN PLT VOLUME 7.1 fl (7.5-11.1); MONO % 9.4 % (3.8-10.2); NEUT % 69.3 % (42.8-82.8); PLATELET COUNT 456 10^3/uL (134-434); RBC 2.96 M/mm3 (4.00-5.60); RDW 17.2 % (11.9-15.9); WHITE BLOOD COUNT 8.6 K/mm3 (4.0-10.0)
[2021-11-14 08:14] LABS: BLOOD UREA NITROGEN 12.4 mg/dL (7-18); CALCIUM 8.2 mg/dL (8.5-10.1)
[2021-11-14 08:17] LABS: CREATININE 0.3 mg/dL (0.55-1.3)
[2021-11-14 08:18] LABS: BILIRUBIN,TOTAL 0.3 mg/dL (0.2-1); TOT PROT 6.2 g/dl (6.4-8.2)
[2021-11-14] MEDS: PANTOPRAZOLE 40 MG TABLET PO SCH (09:18)
[2021-11-14] MEDS: GABAPENTIN 100 MG CAPSULE PO SCH ×2 (09:18→21:25)
[2021-11-14] MEDS: ASPIRIN COATED 81 MG TABLET.EC PO SCH (09:18)
[2021-11-14] MEDS: FERROUS SO4 325 MG TABLET (FP) PO SCH ×2 (09:18→21:25)
[2021-11-14] MEDS: SENNOSIDES/DOCUSATE COMBO (SENNA PLUS) TABLET (UD) PO SCH ×2 (09:18→21:25)
[2021-11-14] MEDS: AMINO ACIDS/PROTEIN HYDROLYS 30 ML LIQUID.PKT PO SCH ×2 (09:18→16:40)
[2021-11-14] MEDS: POLYETHYLENE GLYCOL (HEALTHYLAX) 3350 17 GM PACKET PO SCH ×2 (09:19→21:25)
[2021-11-14] MEDS: BACITRACIN 15 GM TUBE TOPICAL OINTMENT TP SCH (09:19)
[2021-11-14] MEDS: amLODIPine BESYLATE 10 MG TABLET (FP) PO SCH (09:19)
[2021-11-14] MEDS: NEBIVOLOL 5 MG TABLET (FP) PO SCH (09:19)
[2021-11-14] MEDS: ATORVASTATIN CA 20 MG TABLET (FP) PO SCH (21:24)
[2021-11-14] MEDS: HEPARIN NA (PORCINE) 5,000 UNITS/ML 1ML VIAL SQ SCH (21:24)
[2021-11-14] MEDS ORDERED: ERGOCALCIFEROL (VIT D2) 50,000 UNIT (1.25 MG) CAPSULE PO ONE (22:22)
[2021-11-15] MEDS: POLYETHYLENE GLYCOL (HEALTHYLAX) 3350 17 GM PACKET PO SCH ×2 (09:58→22:25)
[2021-11-15] MEDS: AMINO ACIDS/PROTEIN HYDROLYS 30 ML LIQUID.PKT PO SCH ×2 (09:58→16:51)
[2021-11-15] MEDS: ASPIRIN COATED 81 MG TABLET.EC PO SCH (09:59)
[2021-11-15] MEDS: HEPARIN NA (PORCINE) 5,000 UNITS/ML 1ML VIAL SQ SCH (09:59)
[2021-11-15] MEDS: NEBIVOLOL 5 MG TABLET (FP) PO SCH (09:59)
[2021-11-15] MEDS: MAGNESIUM CL 64 MG TABLET.SA PO SCH (09:59)
[2021-11-15] MEDS: GABAPENTIN 100 MG CAPSULE PO SCH ×2 (09:59→22:26)
[2021-11-15] MEDS: amLODIPine BESYLATE 10 MG TABLET (FP) PO SCH (10:00)
[2021-11-15] MEDS: traMADol HCL 50 MG TABLET PO PRN ×3 (10:00→22:26)
[2021-11-15] MEDS: BACITRACIN 15 GM TUBE TOPICAL OINTMENT TP SCH (10:01)
[2021-11-15] MEDS: FERROUS SO4 325 MG TABLET (FP) PO SCH ×2 (10:01→22:24)
[2021-11-15] MEDS: SENNOSIDES/DOCUSATE COMBO (SENNA PLUS) TABLET (UD) PO SCH ×2 (10:01→22:24)
[2021-11-15] MEDS: PANTOPRAZOLE 40 MG TABLET PO SCH (10:01)
[2021-11-15 16:09] LABS: SARS-CoV-2 NAA Not Detected (Not Detected)
[2021-11-15] MEDS ORDERED: HEPARIN NA (PORCINE) 5,000 UNITS/ML 1ML VIAL SQ SCH (22:00)
[2021-11-15] MEDS: ATORVASTATIN CA 20 MG TABLET (FP) PO SCH (22:26)
[2021-11-16 06:54] VITALS: TEMP 98.6
[2021-11-16] MEDS: traMADol HCL 50 MG TABLET PO PRN ×2 (07:57→12:55)
[2021-11-16 08:15] VITALS: PULSE 61
[2021-11-16] MEDS: POLYETHYLENE GLYCOL (HEALTHYLAX) 3350 17 GM PACKET PO SCH (09:22)
[2021-11-16] MEDS: amLODIPine BESYLATE 10 MG TABLET (FP) PO SCH (09:24)
[2021-11-16] MEDS: FERROUS SO4 325 MG TABLET (FP) PO SCH (09:24)
[2021-11-16] MEDS: GABAPENTIN 100 MG CAPSULE PO SCH (09:24)
[2021-11-16] MEDS: ASPIRIN COATED 81 MG TABLET.EC PO SCH (09:24)
[2021-11-16] MEDS: PANTOPRAZOLE 40 MG TABLET PO SCH (09:24)
[2021-11-16] MEDS: SENNOSIDES/DOCUSATE COMBO (SENNA PLUS) TABLET (UD) PO SCH (09:24)
[2021-11-16] MEDS: MAGNESIUM CL 64 MG TABLET.SA PO SCH (09:25)
[2021-11-16] MEDS: AMINO ACIDS/PROTEIN HYDROLYS 30 ML LIQUID.PKT PO SCH (09:25)
[2021-11-16] MEDS: NEBIVOLOL 5 MG TABLET (FP) PO SCH (09:25)
[2021-11-16] MEDS: BACITRACIN 15 GM TUBE TOPICAL OINTMENT TP SCH (09:29)
[2021-11-16 12:30] VITALS: BP 131/58
== END 2021-11-16 13:00 | DRG 207 ==
LOC: JER 01:34 → JERBED 02:52 → JICU 05:16 → J2W 10-24 20:10
PROVIDERS: ADMIT Internal Medicine Pulmonary Disease; ATTEND Family Medicine
PROC: 5A1955Z Respiratory Ventilation, Greater than 96 Consecutive Hours (ICD-10-PCS; principal; 2021-10-04)
PROC: 0BH17EZ Insertion of Endotracheal Airway into Trachea, Via Natural or Artificial Opening (ICD-10-PCS; 2021-10-04)
PROC: 05HM33Z Insertion of Infusion Device into Right Internal Jugular Vein, Percutaneous Approach (ICD-10-PCS; 2021-10-14)
PROC: B543ZZA Ultrasonography of Right Jugular Veins, Guidance (ICD-10-PCS; 2021-10-14)
PROC: 05HN33Z Insertion of Infusion Device into Left Internal Jugular Vein, Percutaneous Approach (ICD-10-PCS; 2021-10-22)
PROC: B544ZZA Ultrasonography of Left Jugular Veins, Guidance (ICD-10-PCS; 2021-10-22)
PROC: 0DH67UZ Insertion of Feeding Device into Stomach, Via Natural or Artificial Opening (ICD-10-PCS; 2021-10-22)
PROC: 009U3ZX Drainage of Spinal Canal, Percutaneous Approach, Diagnostic (ICD-10-PCS; 2021-11-08)
DX: J96.02 Acute respiratory failure with hypercapnia (principal); J18.9 Pneumonia, unspecified organism; K57.33 Diverticulitis of large intestine without perforation or abscess with bleeding; J44.1 Chronic obstructive pulmonary disease with (acute) exacerbation; I16.1 Hypertensive emergency; I47.2 Ventricular tachycardia; E87.2 Acidosis; N32.1 Vesicointestinal fistula; J44.0 Chronic obstructive pulmonary disease with (acute) lower respiratory infection; I24.8 Other forms of acute ischemic heart disease; G61.0 Guillain-Barre syndrome; E87.0 Hyperosmolality and hypernatremia; J96.01 Acute respiratory failure with hypoxia; I95.9 Hypotension, unspecified; N40.0 Benign prostatic hyperplasia without lower urinary tract symptoms; E78.5 Hyperlipidemia, unspecified; I10 Essential (primary) hypertension; J45.909 Unspecified asthma, uncomplicated; E66.9 Obesity, unspecified; Z68.31 Body mass index [BMI] 31.0-31.9, adult; E87.5 Hyperkalemia; J98.01 Acute bronchospasm; N32.0 Bladder-neck obstruction; Z72.0 Tobacco use; G47.33 Obstructive sleep apnea (adult) (pediatric); I48.91 Unspecified atrial fibrillation; I25.10 Atherosclerotic heart disease of native coronary artery without angina pectoris; I50.9 Heart failure, unspecified; M79.10 Myalgia, unspecified site; Z98.61 Coronary angioplasty status; R41.82 Altered mental status, unspecified; D72.829 Elevated white blood cell count, unspecified
CPT/HCPCS: 31500; 36415; 36600; 62272; 70450-TC; 71045-TC-FY; 71250-TC; 74018-TC-FY; 74230-TC-FY; 80048; 80053; 81003; 82042; 82140; 82271; 82272; 82438; 82550; 82553; 82607; 82728; 82784; 82803; 82945; 82962; 83540; 83550; 83605; 83615; 83735; 83873; 83880; 84100; 84157; 84436; 84443; 84484; 85025; 85027; 85610; 85651; 85730; 86038; 86140; 87040; 87070; 87077; 87086; 87102; 87116; 87205; 87206; 87210; 87633; 87804; 87807; 87899; 92611-GN; 93005; 93010; 93306-TC; 94002; 94640; 94660; 97161-GP; 99285-25; C9803-CS; J1644; J1756; U0003; U0005

== ENCOUNTER 2023-01-03 04:08 | Observation (INO) | payer OTHER ==
[2023-01-01 11:02] VITALS: BMI 26.5
[2023-01-03] MEDS ORDERED: SUCCINYLCHOLINE CHLORIDE 200 MG/10 ML SYRINGE ONE (13:43)
[2023-01-03] MEDS ORDERED: ROCURONIUM BROMIDE 50 MG/5 ML SYRINGE ONE (14:07)
[2023-01-03] MEDS ORDERED: PHENYLEPHRINE HCL 10 MG/1 ML SINGLE DOSE VIAL ONE (14:09)
[2023-01-03] MEDS ORDERED: ACETYLCYSTEINE 20% 200MG/ML 10 ML VIAL *FOR ORAL / INH USE ONLY NGT ONE (14:28)
[2023-01-03] MEDS ORDERED: NEOSTIGMINE METHYLSULFATE 0.5 MG/1 ML - 10 ML MDV ONE (14:31)
[2023-01-03] MEDS ORDERED: GLYCOPYRROLATE 0.2 MG/1 ML VIAL ONE ×2 (14:32)
[2023-01-03] MEDS ORDERED: ALBUTEROL SO4 0.083% IH SOL 2.5 MG/3 ML VIAL.NEB. NEB ONE ×2 (14:46→15:05)
[2023-01-03] MEDS ORDERED: ALBUTEROL SULFATE 0.021% (0.63 MG/3 ML) VIAL.NEB NEB ONE ×2 (14:50→15:05)
[2023-01-03] MEDS ORDERED: ALBUTEROL SO4 0.042% IH SOL 1.25 MG/3 ML VIAL.NEB NEB ONE (14:50)
[2023-01-03] MEDS ORDERED: ONDANSETRON 4 MG/2 ML VIAL IVPUSH PRN (14:51)
[2023-01-03] MEDS ORDERED: oxyCODONE HCL 5 MG TABLET PO PRN (14:51)
[2023-01-03] MEDS ORDERED: methylPREDNISolone NA SUCC 125 MG/2 ML VIAL IVPUSH ONE (14:53)
[2023-01-03] MEDS ORDERED: methylPREDNISolone NA SUCC 125 MG/2 ML VIAL IVPB ONE (14:53)
[2023-01-03] MEDS ORDERED: LACTATED RINGERS SOLUTION 1,000 ML IV SCH (15:00)
[2023-01-03] MEDS ORDERED: methylPREDNISolone NA SUCC 40 MG/1 ML VIAL ONE (18:31)
[2023-01-03] MEDS ORDERED: methylPREDNISolone NA SUCC 40 MG/1 ML VIAL IVPUSH ONE (18:45)
[2023-01-03] MEDS: ALBUTEROL SO4 2.5/IPRATROPIUM 0.5 INH SOL 3 ML VIAL.NEB. NEB SCH (20:50)
[2023-01-03] MEDS ORDERED: ATORVASTATIN CA 40 MG TABLET (FP) PO SCH (22:00)
[2023-01-03] MEDS ORDERED: MELATONIN 5 MG TABLETS PO ONE (22:12)
[2023-01-03] MEDS: methylPREDNISolone NA SUCC 40 MG/1 ML VIAL IVPUSH SCH (22:55)
[2023-01-04] MEDS: methylPREDNISolone NA SUCC 40 MG/1 ML VIAL IVPUSH SCH ×2 (01:50→10:04)
[2023-01-04] MEDS: ALBUTEROL SO4 2.5/IPRATROPIUM 0.5 INH SOL 3 ML VIAL.NEB. NEB SCH ×4 (03:49→12:19)
[2023-01-04 06:27] LABS: HEMATOCRIT 38.6 % (35.4-49); HEMOGLOBIN 13.2 GM/dL (11.7-16.9); MCH 28.9 pg (25.7-33.7); MCHC 34.1 g/dl (32.0-35.9); MEAN CELL VOLUME 84.7 fl (80-96); MEAN PLT VOLUME 8.3 fl (7.5-11.1); PLATELET COUNT 209 10^3/uL (134-434); RBC 4.56 M/mm3 (4.00-5.60); RDW 15.2 % (11.9-15.9); WHITE BLOOD COUNT 15.1 K/mm3 (4.0-10.0)
[2023-01-04 06:49] LABS: POTASSIUM 4.6 mmol/L (3.5-5.1)
[2023-01-04 06:55] LABS: CALCIUM 9.1 mg/dL (8.5-10.1)
[2023-01-04 06:56] LABS: BLOOD UREA NITROGEN 18.4 mg/dL (7-18)
[2023-01-04 06:59] LABS: CREATININE 1.1 mg/dL (0.55-1.3)
[2023-01-04 08:19] VITALS: RESP 19
[2023-01-04 08:22] VITALS: BP 121/67; PULSE 77; TEMP 99.2
[2023-01-04] MEDS ORDERED: TAMSULOSIN HCL 0.4 MG CAP PO SCH (08:30)
[2023-01-04 09:06] LABS: ANISOCYTOSIS 0; MACROCYTOSIS 0
[2023-01-04] MEDS ORDERED: HYDROCHLOROTHIAZIDE 25 MG TABLET (FP) PO SCH (10:00)
[2023-01-04] MEDS ORDERED: FLUTICASONE/UMECLIDIN/VILANTER(200-62.5-25 TRELEGY ELLIPTA) INAHLER IH SCH (10:00)
[2023-01-04] MEDS ORDERED: ASPIRIN COATED 81 MG TABLET.EC PO SCH (10:00)
[2023-01-04] MEDS ORDERED: PATIENT'S OWN MEDICATION (NON-FORMULARY) (Losartan/Hydrochlorothiazide [Losartan-Hctz 100- PO SCH (10:00)
[2023-01-04] MEDS ORDERED: LOSARTAN POTASSIUM 50 MG TABLET PO SCH (10:00)
== END 2023-01-04 14:03 | disposition home or self-care (01) ==
LOC: JASU-SURG 04:08 → JERBED 18:23 → J4S 20:01
PROVIDERS: ADMIT Internal Medicine; ATTEND Family Medicine
PROC: 3E0F7GC Introduction of Other Therapeutic Substance into Respiratory Tract, Via Natural or Artificial Opening (ICD-10-PCS; 2023-01-03)
PROC: 3E0337Z Introduction of Electrolytic and Water Balance Substance into Peripheral Vein, Percutaneous Approach (ICD-10-PCS; 2023-01-03)
PROC: 3E033GC Introduction of Other Therapeutic Substance into Peripheral Vein, Percutaneous Approach (ICD-10-PCS; 2023-01-03)
PROC: 0BC78ZZ Extirpation of Matter from Left Main Bronchus, Via Natural or Artificial Opening Endoscopic (ICD-10-PCS; principal; 2023-01-03 13:30)
DX: T17.990A Other foreign object in respiratory tract, part unspecified in causing asphyxiation, initial encounter (principal); J44.1 Chronic obstructive pulmonary disease with (acute) exacerbation; R06.02 Shortness of breath; J98.11 Atelectasis; I25.10 Atherosclerotic heart disease of native coronary artery without angina pectoris; I10 Essential (primary) hypertension; Y99.8 Other external cause status; E78.5 Hyperlipidemia, unspecified; J98.01 Acute bronchospasm
CPT/HCPCS: 36415; 71045-TC-FY; 80048; 85025; 87070; 87102; 87116; 87205; 87206; 87210; 94640; 94760; 96361; 96375; C9803-CS; G0378; U0003; U0005

== ENCOUNTER 2023-01-06 12:43 | Emergency (ER) | payer OTHER ==
[2023-01-06 12:51] VITALS: TEMP 98.2; BMI 26.5
[2023-01-06] MEDS ORDERED: predniSONE 20 MG TABLET (UD) PO ONE (13:21)
[2023-01-06] MEDS ORDERED: ALBUTEROL SO4 2.5/IPRATROPIUM 0.5 INH SOL 3 ML VIAL.NEB. NEB ONE ×2 (13:24→13:32)
[2023-01-06 13:31] LABS: VENOUS BASE EXCESS 0.2 mmol/L (-2-2); VENOUS PCO2 37.1 mmHg (38-52); VENOUS PH 7.432 (7.310-7.410)
[2023-01-06] MEDS ORDERED: predniSONE 20 MG TABLET (UD) ONE (13:33)
[2023-01-06 13:35] LABS: BASO % 0.2 % (0-2.0); HEMATOCRIT 38.9 % (35.4-49); LYMPH % 9.9 % (8-40); MCH 28.3 pg (25.7-33.7); MCHC 33.3 g/dl (32.0-35.9); MEAN CELL VOLUME 84.9 fl (80-96); MEAN PLT VOLUME 8.1 fl (7.5-11.1); MONO % 8.8 % (3.8-10.2); NEUT % 81.1 % (42.8-82.8); PLATELET COUNT 236 10^3/uL (134-434); RBC 4.58 M/mm3 (4.00-5.60); RDW 15.6 % (11.9-15.9); WHITE BLOOD COUNT 9.9 K/mm3 (4.0-10.0)
[2023-01-06 14:02] LABS: CALCIUM 8.8 mg/dL (8.5-10.1)
[2023-01-06 14:03] LABS: ALBUMIN 3.6 g/dl (3.4-5.0); BLOOD UREA NITROGEN 30.7 mg/dL (7-18)
[2023-01-06 14:05] LABS: CREATININE 1.1 mg/dL (0.55-1.3)
[2023-01-06 14:08] LABS: BILIRUBIN,TOTAL 0.5 mg/dL (0.2-1); TOT PROT 6.7 g/dl (6.4-8.2)
[2023-01-06 16:00] VITALS: BP 148/67; PULSE 76; RESP 20
[2023-01-06 17:52] LABS: INR 1.04 (0.83-1.09); PROTHROMBIN TIME (PATIENT) 12.1 SEC (9.7-13.0)
[2023-01-06 17:54] LABS: ACTIVATED PTT 27.1 SECONDS (25.2-36.5)
== END 2023-01-06 18:56 | disposition home or self-care (01) ==
LOC: JER 12:43
PROC: 3E0F7GC Introduction of Other Therapeutic Substance into Respiratory Tract, Via Natural or Artificial Opening (ICD-10-PCS; principal; 2023-01-06)
DX: R06.02 Shortness of breath (principal); R06.09 Other forms of dyspnea; R09.3 Abnormal sputum; R09.02 Hypoxemia; J98.09 Other diseases of bronchus, not elsewhere classified
CPT/HCPCS: 36415; 71046-TC-FY; 71275-TC; 80053; 82803; 83880; 84484; 85025; 85610; 85730; 93005; 93010; 99285-25

== ENCOUNTER 2023-02-19 05:41 | Day surgery (SDC) | payer OTHER ==
[2023-02-12 18:21] VITALS: BMI 26.5
[2023-02-19] MEDS ORDERED: PROMETHAZINE HCL 25 MG/1 ML VIAL IVPB PRN (08:36)
[2023-02-19] MEDS ORDERED: ONDANSETRON 4 MG/2 ML VIAL IVPUSH PRN (08:36)
[2023-02-19] MEDS ORDERED: GLYCOPYRROLATE 0.2 MG/1 ML VIAL ONE (08:43)
[2023-02-19] MEDS ORDERED: MIDAZOLAM HCL 2 MG/2 ML SINGLE DOSE VIAL ONE (08:43)
[2023-02-19] MEDS ORDERED: PROPOFOL 20 ML ONE (08:43)
[2023-02-19] MEDS ORDERED: LIDOCAINE HCL/PF 2% SDV 5ML VIAL ONE (08:44)
[2023-02-19] MEDS ORDERED: LACTATED RINGERS SOLUTION 1,000 ML IV SCH (08:45)
[2023-02-19] MEDS ORDERED: SODIUM CHLORIDE 0.9% P/F 10 ML VIAL IJ ONE (08:57)
[2023-02-19] MEDS ORDERED: GENTAMICIN SO4 80 MG/2 ML VIAL ONE (08:57)
[2023-02-19] MEDS ORDERED: ceFAZolin SODIUM 1 GM VIAL ONE (08:57)
[2023-02-19] MEDS ORDERED: ceFAZolin SODIUM 1 GM VIAL IVPB ONE (09:16)
[2023-02-19] MEDS ORDERED: ONDANSETRON 4 MG/2 ML VIAL ONE (09:20)
[2023-02-19] MEDS ORDERED: GENTAMICIN SO4 80 MG/2 ML VIAL IVPB ONE (09:20)
[2023-02-19] MEDS ORDERED: DEXAMETHASONE SOD PHOSPHATE 4 MG/1 ML VIAL ONE (09:20)
[2023-02-19 11:35] VITALS: RESP 18
[2023-02-19 12:40] VITALS: BP 136/62; PULSE 73; TEMP 97.3
== END 2023-02-19 12:41 | disposition home or self-care (01) ==
LOC: JASU-SURG 05:41
PROVIDERS: ATTEND Urology
PROC: 0T5B8ZZ Destruction of Bladder, Via Natural or Artificial Opening Endoscopic (ICD-10-PCS; 2023-02-19)
PROC: 0TBB8ZX Excision of Bladder, Via Natural or Artificial Opening Endoscopic, Diagnostic (ICD-10-PCS; principal; 2023-02-19 09:00)
DX: D49.4 Neoplasm of unspecified behavior of bladder (principal)
CPT/HCPCS: 88305-TC; 88342-TC; 94760

== ENCOUNTER 2023-07-01 13:42 | Emergency (ER) | payer OTHER ==
[2023-07-01 13:48] VITALS: BMI 27.9
[2023-07-01 15:49] LABS: BASO % 0.6 % (0-2.0); EOS % 20.7 % (0-4.5); HEMATOCRIT 40.3 % (35.4-49); HEMOGLOBIN 13.5 GM/dL (11.7-16.9); LYMPH % 24.9 % (8-40); MCH 28.7 pg (25.7-33.7); MCHC 33.5 g/dl (32.0-35.9); MEAN CELL VOLUME 85.7 fl (80-96); MEAN PLT VOLUME 7.7 fl (7.5-11.1); MONO % 8.4 % (3.8-10.2); NEUT % 45.4 % (42.8-82.8); PLATELET COUNT 270 10^3/uL (134-434); RDW 14.3 % (11.9-15.9); WHITE BLOOD COUNT 9.2 K/mm3 (4.0-10.0)
[2023-07-01 16:01] LABS: INR 0.97 (0.83-1.09); PROTHROMBIN TIME (PATIENT) 11.3 SEC (9.7-13.0)
[2023-07-01 16:06] LABS: POTASSIUM 4.6 mmol/L (3.5-5.1)
[2023-07-01 16:07] LABS: CALCIUM 9.3 mg/dL (8.5-10.1)
[2023-07-01 16:09] LABS: ALBUMIN 3.9 g/dl (3.4-5.0); BLOOD UREA NITROGEN 18.9 mg/dL (7-18)
[2023-07-01 16:14] LABS: BILIRUBIN,TOTAL 0.5 mg/dL (0.2-1); TOT PROT 6.8 g/dl (6.4-8.2)
[2023-07-01 17:08] LABS: ANISOCYTOSIS 0; MACROCYTOSIS 0
[2023-07-01 19:48] VITALS: BP 120/75; PULSE 60; RESP 17; TEMP 97.4
== END 2023-07-01 19:56 | disposition home or self-care (01) ==
LOC: JER 13:42
DX: K92.1 Melena (principal); K59.00 Constipation, unspecified
CPT/HCPCS: 36415; 74177-TC; 80053; 85025; 85610; 86850; 86900; 86901; 99285-25; Q9967

== ENCOUNTER 2023-09-26 10:06 | Inpatient (IN) | payer OTHER ==
[2023-09-26 12:08] LABS: BASO % 0.5 % (0-2.0); EOS % 1.8 % (0-4.5); HEMATOCRIT 33.5 % (35.4-49); HEMOGLOBIN 11.5 GM/dL (11.7-16.9); LYMPH % 7.9 % (8-40); MCH 29.6 pg (25.7-33.7); MCHC 34.3 g/dl (32.0-35.9); MEAN CELL VOLUME 86.2 fl (80-96); MEAN PLT VOLUME 7.5 fl (7.5-11.1); MONO % 9.9 % (3.8-10.2); NEUT % 79.9 % (42.8-82.8); PLATELET COUNT 321 10^3/uL (134-434); RBC 3.88 M/mm3 (4.00-5.60); WHITE BLOOD COUNT 10.8 K/mm3 (4.0-10.0)
[2023-09-26 12:15] LABS: INR 1.25 (0.83-1.09); PROTHROMBIN TIME (PATIENT) 14.5 SEC (9.7-13.0)
[2023-09-26 12:17] LABS: ACTIVATED PTT 30.9 SECONDS (25.2-36.5)
[2023-09-26 12:31] LABS: POTASSIUM 4.2 mmol/L (3.5-5.1)
[2023-09-26 12:32] LABS: BLOOD UREA NITROGEN 12.1 mg/dL (7-18)
[2023-09-26 12:35] LABS: CREATININE 1.1 mg/dL (0.55-1.3)
[2023-09-26 12:37] LABS: BILIRUBIN,TOTAL 0.5 mg/dL (0.2-1); TOT PROT 6.4 g/dl (6.4-8.2)
[2023-09-26 13:55] LABS: URINE APPEARANCE CLEAR; URINE BILIRUBIN NEGATIVE (NEGATIVE); URINE COLOR YELLOW; URINE GLUCOSE (UA) NEGATIVE (NEGATIVE); URINE KETONE NEGATIVE (NEGATIVE); URINE LEUK ESTERASE NEGATIVE (NEGATIVE); URINE NITRITE NEGATIVE (NEGATIVE); URINE PROTEIN TRACE (NEGATIVE); URINE UROBILINOGEN 0.2 mg/dL (0.2-1.0)
[2023-09-26] MEDS ORDERED: PIPERACILLIN/TAZOB 3.375 GM 3.375 GM/50 ML BAG IVPB ONE (20:03)
[2023-09-26] MEDS: DEXTROSE 5%-NORMAL SALINE 1,000 ML IV SCH (20:22)
[2023-09-26] MEDS: PIPERACILLIN/TAZOB 3.375 GM 3.375 GM in DEXTROSE 5%-WATER - 50 ML IVPB ONE (20:22)
[2023-09-26] MEDS ORDERED: VITAMINS A AND D TOPICAL OINTMENT 60 GM TUBE TP PRN (21:57)
[2023-09-27] MEDS ORDERED: ALBUTEROL SO4 HFA INHALER IH PRN (06:26)
[2023-09-27 07:39] LABS: BASO % 0.5 % (0-2.0); EOS % 0.8 % (0-4.5); HEMATOCRIT 32.8 % (35.4-49); HEMOGLOBIN 11.1 GM/dL (11.7-16.9); LYMPH % 5.1 % (8-40); MCHC 33.7 g/dl (32.0-35.9); MEAN CELL VOLUME 86.1 fl (80-96); MEAN PLT VOLUME 8.3 fl (7.5-11.1); MONO % 9.8 % (3.8-10.2); NEUT % 83.8 % (42.8-82.8); PLATELET COUNT 303 10^3/uL (134-434); RBC 3.81 M/mm3 (4.00-5.60); RDW 13.9 % (11.9-15.9); WHITE BLOOD COUNT 13.3 K/mm3 (4.0-10.0)
[2023-09-27 07:53] LABS: POTASSIUM 3.5 mmol/L (3.5-5.1)
[2023-09-27 08:00] LABS: CALCIUM 7.9 mg/dL (8.5-10.1)
[2023-09-27 08:01] LABS: BLOOD UREA NITROGEN 9.5 mg/dL (7-18)
[2023-09-27 08:04] LABS: CREATININE 1.1 mg/dL (0.55-1.3)
[2023-09-27] MEDS ORDERED: CEFTRIAXONE 1 GM/50 ML BAG ONE (09:23)
[2023-09-27] MEDS: TAMSULOSIN HCL 0.4 MG CAP PO SCH (09:38)
[2023-09-27] MEDS: CEFTRIAXONE 1 GM in DEXTROSE 5%-WATER - 50 ML IVPB SCH (09:39)
[2023-09-27] MEDS: FLUTICASONE/UMECLIDIN/VILANTER(200-62.5-25 TRELEGY ELLIPTA) INAHLER IH SCH (10:40)
[2023-09-27] MEDS: POTASSIUM CHLORIDE 10 MEQ in SODIUM CHLORIDE 0.45% 1,000 ML IVPB SCH (18:32)
[2023-09-27] MEDS: HYDROCORTISONE 2.5% TOPICAL CREAM 30 GM TUBE RC SCH (20:15)
[2023-09-27] MEDS: ATORVASTATIN CA 40 MG TABLET (FP) PO SCH (21:34)
[2023-09-28 09:56] LABS: HEMATOCRIT 33.2 % (35.4-49); HEMOGLOBIN 10.9 GM/dL (11.7-16.9); MCH 28.4 pg (25.7-33.7); MCHC 32.9 g/dl (32.0-35.9); MEAN CELL VOLUME 86.4 fl (80-96); MEAN PLT VOLUME 7.7 fl (7.5-11.1); PLATELET COUNT 294 10^3/uL (134-434); RBC 3.84 M/mm3 (4.00-5.60); RDW 13.9 % (11.9-15.9)
[2023-09-28 10:15] LABS: POTASSIUM 3.8 mmol/L (3.5-5.1)
[2023-09-28 10:18] LABS: CALCIUM 8.1 mg/dL (8.5-10.1)
[2023-09-28 10:19] LABS: BLOOD UREA NITROGEN 10.1 mg/dL (7-18)
[2023-09-28 10:22] LABS: CREATININE 1.2 mg/dL (0.55-1.3)
[2023-09-29] MEDS: ACETAMINOPHEN 1000 MG/100 ML BAG IVPB PRN (04:52)
[2023-09-29 09:21] LABS: HEMATOCRIT 30.9 % (35.4-49); HEMOGLOBIN 10.8 GM/dL (11.7-16.9); MCH 29.8 pg (25.7-33.7); MEAN CELL VOLUME 85.2 fl (80-96); MEAN PLT VOLUME 7.6 fl (7.5-11.1); PLATELET COUNT 291 10^3/uL (134-434); RBC 3.63 M/mm3 (4.00-5.60); RDW 14.1 % (11.9-15.9); WHITE BLOOD COUNT 9.1 K/mm3 (4.0-10.0)
[2023-09-29 09:46] LABS: BLOOD UREA NITROGEN 11.9 mg/dL (7-18); CREATININE 1.1 mg/dL (0.55-1.3)
[2023-09-29 09:47] LABS: TOT PROT 5.2 g/dl (6.4-8.2)
[2023-09-29 09:48] LABS: BILIRUBIN,TOTAL 0.4 mg/dL (0.2-1)
[2023-09-29 09:49] LABS: CALCIUM 7.8 mg/dL (8.5-10.1)
[2023-09-29 09:51] LABS: ALBUMIN 2.3 g/dl (3.4-5.0)
[2023-09-29] MEDS: POTASSIUM CHLORIDE ORAL LIQUID 20 MEQ/15 ML PO ONE (17:39)
[2023-09-29] MEDS: KCL 10 MEQ IVPB 10 MEQ/100 ML INFUS.BAG IVPB SCH (19:01)
[2023-09-29 22:55] VITALS: BMI 29.1
[2023-09-30] MEDS: ACETAMINOPHEN 1000 MG/100 ML BAG IVPB PRN (06:30)
[2023-09-30 08:48] LABS: BASO % 0.8 % (0-2.0); EOS % 4.4 % (0-4.5); HEMATOCRIT 30.9 % (35.4-49); HEMOGLOBIN 10.6 GM/dL (11.7-16.9); LYMPH % 6.6 % (8-40); MCH 29.2 pg (25.7-33.7); MCHC 34.4 g/dl (32.0-35.9); MEAN PLT VOLUME 7.9 fl (7.5-11.1); MONO % 5.2 % (3.8-10.2); PLATELET COUNT 283 10^3/uL (134-434); RBC 3.64 M/mm3 (4.00-5.60); RDW 14.3 % (11.9-15.9); WHITE BLOOD COUNT 8.7 K/mm3 (4.0-10.0)
[2023-09-30 08:59] LABS: POTASSIUM 3.6 mmol/L (3.5-5.1)
[2023-09-30 09:02] LABS: ALBUMIN 2.4 g/dl (3.4-5.0); BLOOD UREA NITROGEN 8.7 mg/dL (7-18); CALCIUM 7.5 mg/dL (8.5-10.1)
[2023-09-30 09:05] LABS: CREATININE 0.8 mg/dL (0.55-1.3)
[2023-09-30 09:07] LABS: BILIRUBIN,TOTAL 0.4 mg/dL (0.2-1); TOT PROT 5.3 g/dl (6.4-8.2)
[2023-09-30] MEDS: BICALUTAMIDE 50 MG TABLET (FP) PO SCH (09:46)
[2023-10-01] MEDS: LOPERAMIDE HCL 2 MG CAPSULE PO SCH (10:15)
[2023-10-01] MEDS: ACETAMINOPHEN 325 MG TABLET (FP) PO ONE (22:49)
[2023-10-01] MEDS: MELATONIN 5 MG TABLETS PO PRN (23:21)
[2023-10-02 09:00] VITALS: BP 115/52; PULSE 83; RESP 20; TEMP 97.9
== END 2023-10-02 13:30 | disposition home or self-care (01) | DRG 392 ==
LOC: JER 10:06 → JERBED 18:25 → J6S 09-27 14:12 → OBSVTOIN 09-28 10:11
PROVIDERS: ADMIT Internal Medicine; ATTEND Family Medicine
DX: K52.9 Noninfective gastroenteritis and colitis, unspecified (principal); K62.5 Hemorrhage of anus and rectum; J96.11 Chronic respiratory failure with hypoxia; I10 Essential (primary) hypertension; E78.5 Hyperlipidemia, unspecified; J44.9 Chronic obstructive pulmonary disease, unspecified; I25.10 Atherosclerotic heart disease of native coronary artery without angina pectoris; C61 Malignant neoplasm of prostate; D64.9 Anemia, unspecified; Z99.81 Dependence on supplemental oxygen
CPT/HCPCS: 36415; 74019-TC-FY; 74177-TC; 80048; 80053; 81003; 82272; 82962; 83993; 85025; 85027; 85610; 85730; 86850; 86900; 86901; 87045; 87046; 87209; 87324; 87449; 93005; 93010; 99285-25; G0378; J0131; Q9967

== ENCOUNTER 2023-10-14 14:22 | Inpatient (IN) | payer OTHER ==
[2023-10-14 14:26] VITALS: BMI 27.9
[2023-10-14] MEDS ORDERED: ACETAMINOPHEN INJECTION 100 ML IVPB ONE ×2 (15:09→20:52)
[2023-10-14] MEDS: ACETAMINOPHEN 1000 MG/100 ML BAG IVPB ONE (15:35)
[2023-10-14 15:43] LABS: HEMATOCRIT 33.8 % (35.4-49); HEMOGLOBIN 11.4 GM/dL (11.7-16.9); MCH 28.5 pg (25.7-33.7); MCHC 33.9 g/dl (32.0-35.9); MEAN CELL VOLUME 84.1 fl (80-96); MEAN PLT VOLUME 7.2 fl (7.5-11.1); PLATELET COUNT 450 10^3/uL (134-434); RBC 4.02 M/mm3 (4.00-5.60); RDW 14.4 % (11.9-15.9); WHITE BLOOD COUNT 5.7 K/mm3 (4.0-10.0)
[2023-10-14 15:49] LABS: INR 1.44 (0.83-1.09); PROTHROMBIN TIME (PATIENT) 16.7 SEC (9.7-13.0)
[2023-10-14 15:52] LABS: ACTIVATED PTT 31.4 SECONDS (25.2-36.5)
[2023-10-14 16:02] LABS: POTASSIUM 3.5 mmol/L (3.5-5.1)
[2023-10-14 16:04] LABS: CALCIUM 7.9 mg/dL (8.5-10.1)
[2023-10-14 16:05] LABS: ALBUMIN 2.1 g/dl (3.4-5.0); BLOOD UREA NITROGEN 10.5 mg/dL (7-18); MAGNESIUM 1.8 mg/dL (1.8-2.4)
[2023-10-14 16:08] LABS: PHOSPHOROUS 3.1 mg/dL (2.5-4.9)
[2023-10-14 16:10] LABS: ANISOCYTOSIS 0; BILIRUBIN,TOTAL 0.5 mg/dL (0.2-1); HELMET CELLS 0; HOWELL-JOLLY BODIES 0; MACROCYTOSIS 0; OVALOCYTE 0; ROULEAU 0; SICKELED CELLS 0; TARGET CELLS 0; TEAR DROP CELLS 0; TOXIC GRANULATION 0
[2023-10-14] MEDS: LACTATED RINGERS SOLUTION 1000 ML INFUS.BAG IV ONE (16:22)
[2023-10-14] MEDS ORDERED: ALBUTEROL SO4 2.5/IPRATROPIUM 0.5 INH SOL 3 ML VIAL.NEB. NEB PRN (16:45)
[2023-10-14] MEDS ORDERED: CEFAZOLIN SODIUM 2 GM VIAL ONE (16:58)
[2023-10-14] MEDS: CEFAZOLIN SODIUM 2 GM in DEXTROSE 5%-WATER 100 ML IVPB SCH (17:06)
[2023-10-14 17:52] LABS: PH,URINE 5.5 (5.0-8.0); URINE APPEARANCE CLEAR; URINE BILIRUBIN NEGATIVE (NEGATIVE); URINE COLOR YELLOW; URINE GLUCOSE (UA) NEGATIVE (NEGATIVE); URINE KETONE NEGATIVE (NEGATIVE); URINE LEUK ESTERASE NEGATIVE (NEGATIVE); URINE NITRITE NEGATIVE (NEGATIVE); URINE PROTEIN TRACE (NEGATIVE); URINE UROBILINOGEN 0.2 mg/dL (0.2-1.0)
[2023-10-14] MEDS: ACETAMINOPHEN 1000 MG/100 ML BAG IVPB PRN (21:00)
[2023-10-15] MEDS ORDERED: CEFAZOLIN SODIUM 2 GM VIAL ONE ×2 (01:15→09:53)
[2023-10-15] MEDS ORDERED: ACETAMINOPHEN INJECTION 100 ML IVPB ONE ×2 (02:45→08:23)
[2023-10-15] MEDS ORDERED: TAMSULOSIN HCL 0.4 MG CAP ONE (08:24)
[2023-10-15] MEDS: TAMSULOSIN HCL 0.4 MG CAP PO SCH (08:47)
[2023-10-15 09:40] LABS: HEMATOCRIT 31.1 % (35.4-49); HEMOGLOBIN 10.7 GM/dL (11.7-16.9); MCH 29.1 pg (25.7-33.7); MCHC 34.5 g/dl (32.0-35.9); MEAN CELL VOLUME 84.2 fl (80-96); MEAN PLT VOLUME 7.1 fl (7.5-11.1); PLATELET COUNT 432 10^3/uL (134-434); RBC 3.69 M/mm3 (4.00-5.60); RDW 14.5 % (11.9-15.9); WHITE BLOOD COUNT 6.2 K/mm3 (4.0-10.0)
[2023-10-15] MEDS ORDERED: PANTOPRAZOLE 40 MG TABLET PO ONE (09:53)
[2023-10-15] MEDS: D5-1/2NS+10 MEQ KCL - 10 MEQ/1,000 ML INFUS.BAG IV SCH (10:00)
[2023-10-15 10:21] LABS: POTASSIUM 3.7 mmol/L (3.5-5.1)
[2023-10-15 10:22] LABS: CALCIUM 7.7 mg/dL (8.5-10.1)
[2023-10-15 10:23] LABS: ALBUMIN 1.9 g/dl (3.4-5.0); BLOOD UREA NITROGEN 10.8 mg/dL (7-18)
[2023-10-15 10:26] LABS: CREATININE 0.8 mg/dL (0.55-1.3)
[2023-10-15 10:27] LABS: BILIRUBIN,TOTAL 0.4 mg/dL (0.2-1)
[2023-10-15 10:28] LABS: TOT PROT 5.3 g/dl (6.4-8.2)
[2023-10-15] MEDS: LACTOBACILLUS ACIDOPHILUS 1 TABLET PO SCH (10:54)
[2023-10-15] MEDS: FLUTICASONE/UMECLIDIN/VILANTER(200-62.5-25 TRELEGY ELLIPTA) INAHLER IH SCH (10:55)
[2023-10-15] MEDS: PANTOPRAZOLE 40 MG TABLET PO SCH (10:55)
[2023-10-15] MEDS: BICALUTAMIDE 50 MG TABLET (FP) PO SCH (10:55)
[2023-10-15] MEDS ORDERED: morphine SULFATE 4 MG/ML VIAL ONE (12:39)
[2023-10-15] MEDS: morphine SULFATE 4 MG/ML VIAL IVPUSH PRN (12:48)
[2023-10-15] MEDS: CEFTRIAXONE 2 GM in DEXTROSE 5%-WATER 100 ML IVPB SCH (17:09)
[2023-10-16 08:49] LABS: HEMATOCRIT 36.5 % (35.4-49); HEMOGLOBIN 12.1 GM/dL (11.7-16.9); MCH 28.3 pg (25.7-33.7); MCHC 33.1 g/dl (32.0-35.9); MEAN CELL VOLUME 85.4 fl (80-96); MEAN PLT VOLUME 7.2 fl (7.5-11.1); PLATELET COUNT 455 10^3/uL (134-434); RBC 4.27 M/mm3 (4.00-5.60); RDW 14.7 % (11.9-15.9)
[2023-10-16] MEDS: ACETAMINOPHEN 1000 MG/100 ML BAG IVPB PRN (08:59)
[2023-10-16] MEDS ORDERED: SIMETHICONE 80 MG TAB.CHEW (FP) PO PRN (10:00)
[2023-10-16] MEDS ORDERED: POLYETHYLENE GLYCOL (HEALTHYLAX) 3350 17 GM PACKET PO SCH (10:00)
[2023-10-16 10:13] LABS: POTASSIUM 3.9 mmol/L (3.5-5.1)
[2023-10-16 10:27] LABS: CALCIUM 7.9 mg/dL (8.5-10.1)
[2023-10-16 10:28] LABS: ALBUMIN 1.9 g/dl (3.4-5.0)
[2023-10-16 10:31] LABS: CREATININE 0.8 mg/dL (0.55-1.3)
[2023-10-16 10:33] LABS: BILIRUBIN,TOTAL 0.3 mg/dL (0.2-1); TOT PROT 5.7 g/dl (6.4-8.2)
[2023-10-16] MEDS: VANCOMYCIN ORAL SOLUTION 125 MG/2.5 ML PO SCH (10:43)
[2023-10-16 10:45] LABS: BLOOD UREA NITROGEN 9.9 mg/dL (7-18)
[2023-10-16 15:48] LABS: LACTIC ACID 3.1 mmol/L (0.4-2.0)
[2023-10-16] MEDS: SODIUM CHLORIDE 1,000 ML IV STA (16:58)
[2023-10-16] MEDS: D5-1/2NS+10 MEQ KCL - 10 MEQ/1,000 ML INFUS.BAG IV SCH (17:00)
[2023-10-16] MEDS: SIMETHICONE 80 MG TAB.CHEW (FP) PO SCH (17:00)
[2023-10-16] MEDS ORDERED: DOCUSATE SODIUM 100 MG CAPSULE (FP) PO SCH (22:00)
[2023-10-17] MEDS: VANCOMYCIN 250 MG/5 ML ORAL SOLUTION PO SCH (05:54)
[2023-10-17 08:04] LABS: HEMATOCRIT 31.5 % (35.4-49); HEMOGLOBIN 10.3 GM/dL (11.7-16.9); MCH 28.1 pg (25.7-33.7); MCHC 32.7 g/dl (32.0-35.9); MEAN CELL VOLUME 85.9 fl (80-96); MEAN PLT VOLUME 6.9 fl (7.5-11.1); PLATELET COUNT 470 10^3/uL (134-434); RBC 3.67 M/mm3 (4.00-5.60); RDW 14.8 % (11.9-15.9)
[2023-10-17 08:22] LABS: POTASSIUM 4.4 mmol/L (3.5-5.1)
[2023-10-17 08:27] LABS: CALCIUM 7.6 mg/dL (8.5-10.1)
[2023-10-17 08:28] LABS: ALBUMIN 1.7 g/dl (3.4-5.0); BLOOD UREA NITROGEN 8.3 mg/dL (7-18)
[2023-10-17 08:31] LABS: CREATININE 0.8 mg/dL (0.55-1.3)
[2023-10-17 08:32] LABS: TOT PROT 4.9 g/dl (6.4-8.2)
[2023-10-17 08:33] LABS: BILIRUBIN,TOTAL 0.3 mg/dL (0.2-1)
[2023-10-17 08:40] LABS: MAGNESIUM 2.3 mg/dL (1.8-2.4)
[2023-10-17 09:00] LABS: LACTIC ACID 3.6 mmol/L (0.4-2.0)
[2023-10-17] MEDS: ACETAMINOPHEN 325 MG TABLET (FP) PO PRN (09:34)
[2023-10-17] MEDS ORDERED: HYDROmorphone HCl 2 MG/ML VIAL IVPUSH PRN (16:37)
[2023-10-17] MEDS: CEFTRIAXONE 2 GM in DEXTROSE 5%-WATER 100 ML IVPB SCH (16:49)
[2023-10-17] MEDS: traMADol HCL 50 MG TABLET PO PRN (20:35)
[2023-10-18] MEDS: BANATROL PLUS POWDER PACKET PO SCH (13:34)
[2023-10-18] MEDS: MESALAMINE 4 GM/60 ML ENEMA RC SCH (21:13)
[2023-10-19 09:29] LABS: LACTIC ACID 3.3 mmol/L (0.4-2.0)
[2023-10-19] MEDS ORDERED: HYDROmorphone HCl 2 MG/ML VIAL IVPUSH PRN (09:42)
[2023-10-19] MEDS: ACETAMINOPHEN 1000 MG/100 ML BAG IVPB PRN (10:08)
[2023-10-19 13:57] LABS: HEMATOCRIT 31.1 % (35.4-49); HEMOGLOBIN 10.5 GM/dL (11.7-16.9); MCH 28.8 pg (25.7-33.7); MCHC 33.8 g/dl (32.0-35.9); MEAN PLT VOLUME 7.6 fl (7.5-11.1); PLATELET COUNT 437 10^3/uL (134-434); RBC 3.65 M/mm3 (4.00-5.60); RDW 15.4 % (11.9-15.9); WHITE BLOOD COUNT 7.1 K/mm3 (4.0-10.0)
[2023-10-19 13:58] LABS: BLOOD UREA NITROGEN 3.5 mg/dL (7-18); CALCIUM 7.3 mg/dL (8.5-10.1)
[2023-10-19 14:02] LABS: CREATININE 0.6 mg/dL (0.55-1.3)
[2023-10-19] MEDS: FIDAXOMICIN 200 MG TABLET PO SCH (14:21)
[2023-10-19] MEDS: traMADol HCL 50 MG TABLET PO PRN (14:24)
[2023-10-19 14:33] LABS: ANISOCYTOSIS 0; MACROCYTOSIS 0
[2023-10-19 16:03] VITALS: RESP 18
[2023-10-19] MEDS: ELECTROLYTE-148 SOLN 1,000 ML IV ONE (16:35)
[2023-10-19] MEDS: HYDROmorphone HCl 2 MG/ML VIAL IVPB ONE (18:27)
[2023-10-19 18:53] VITALS: BP 151/74; PULSE 85; TEMP 97.9
== END 2023-10-19 22:05 | disposition short-term general hospital (02) | DRG 372 ==
LOC: JER 14:22 → JERBED 16:43 → J8W 10-15 15:48
PROVIDERS: ADMIT Family Medicine; ATTEND Family Medicine
PROC: 0DBN8ZX Excision of Sigmoid Colon, Via Natural or Artificial Opening Endoscopic, Diagnostic (ICD-10-PCS; 2023-10-15)
PROC: 0DBP8ZX Excision of Rectum, Via Natural or Artificial Opening Endoscopic, Diagnostic (ICD-10-PCS; principal; 2023-10-15 13:45)
DX: A04.72 Enterocolitis due to Clostridium difficile, not specified as recurrent (principal); E87.20 Acidosis, unspecified; K52.0 Gastroenteritis and colitis due to radiation; K62.6 Ulcer of anus and rectum; J96.11 Chronic respiratory failure with hypoxia; C61 Malignant neoplasm of prostate; K62.7 Radiation proctitis; I10 Essential (primary) hypertension; I25.10 Atherosclerotic heart disease of native coronary artery without angina pectoris; E78.5 Hyperlipidemia, unspecified; J44.9 Chronic obstructive pulmonary disease, unspecified; I95.9 Hypotension, unspecified; R53.1 Weakness; D64.9 Anemia, unspecified; N40.0 Benign prostatic hyperplasia without lower urinary tract symptoms; Z99.81 Dependence on supplemental oxygen; Z95.5 Presence of coronary angioplasty implant and graft
CPT/HCPCS: 0241U-QW; 36415; 74174-TC; 74177-TC; 76705-TC; 80048; 80053; 81003; 83605; 83690; 83735; 83993; 84100; 85025; 85027; 85610; 85730; 86140; 86850; 86900; 86901; 87045; 87046; 87086; 87205; 87207; 87209; 87324; 87328; 87329; 87425; 87449; 87493; 87635; 87798; 88305-TC; 93005; 93010; 99285-25; J0131; Q9967

== ENCOUNTER 2024-01-26 20:49 | Inpatient (IN) | payer OTHER ==
[2024-01-26] MEDS ORDERED: ACETAMINOPHEN INJECTION 100 ML IVPB ONE (21:09)
[2024-01-26] MEDS: LACTATED RINGERS SOLUTION 1000 ML INFUS.BAG IV ONE (21:40)
[2024-01-26 21:54] LABS: VENOUS BASE EXCESS -8.9 mmol/L (-2-2); VENOUS PCO2 33.3 mmHg (38-52); VENOUS PH 7.309 (7.310-7.410)
[2024-01-26] MEDS: ACETAMINOPHEN 1000 MG/100 ML BAG IVPB ONE (21:56)
[2024-01-26] MEDS: SODIUM CHLORIDE 0.9% 500 ML INFUS.BAG IV ONE (21:56)
[2024-01-26 21:58] LABS: BASO % 0.2 % (0-2.0); HEMATOCRIT 33.4 % (35.4-49); LYMPH % 4.4 % (8-40); MCH 29.7 pg (25.7-33.7); MCHC 32.9 g/dl (32.0-35.9); MEAN CELL VOLUME 90.2 fl (80-96); MEAN PLT VOLUME 6.8 fl (7.5-11.1); MONO % 4.6 % (3.8-10.2); NEUT % 90.8 % (42.8-82.8); PLATELET COUNT 460 10^3/uL (134-434); RDW 19.9 % (11.9-15.9); WHITE BLOOD COUNT 14.3 K/mm3 (4.0-10.0)
[2024-01-26 22:01] LABS: EPI CELLS 20 /uL (0-25.1); HYALINE CASTS 1 /uL (0-3.1); PH,URINE 5.5 (5.0-8.0); URINE APPEARANCE CLEAR; URINE BACTERIA 5 /uL (0-1359); URINE BILIRUBIN NEGATIVE (NEGATIVE); URINE COLOR YELLOW; URINE GLUCOSE (UA) NEGATIVE (NEGATIVE); URINE KETONE NEGATIVE (NEGATIVE); URINE LEUK ESTERASE NEGATIVE (NEGATIVE); URINE NITRITE NEGATIVE (NEGATIVE); URINE PROTEIN 1+ (NEGATIVE); URINE RBC 11 /uL (0-23.9); URINE UROBILINOGEN 0.2 mg/dL (0.2-1.0); URINE WBC 27 /uL (0-25.8)
[2024-01-26 22:03] LABS: INR 1.27 (0.83-1.09); PROTHROMBIN TIME (PATIENT) 14.3 SEC (9.7-13.0)
[2024-01-26 22:06] LABS: ACTIVATED PTT 35.2 SECONDS (25.2-36.5)
[2024-01-26 22:22] LABS: POTASSIUM 3.8 mmol/L (3.5-5.1)
[2024-01-26] MEDS ORDERED: PIPERACILLIN/TAZOB 4.5 GM 4.5 GM/100 ML BAG IVPB ONE (22:23)
[2024-01-26 22:24] LABS: CALCIUM 7.8 mg/dL (8.5-10.1)
[2024-01-26 22:25] LABS: BLOOD UREA NITROGEN 11.2 mg/dL (7-18)
[2024-01-26] MEDS ORDERED: morphine SULFATE 4 MG/ML VIAL ONE (22:25)
[2024-01-26 22:28] LABS: CREATININE 1.2 mg/dL (0.55-1.3)
[2024-01-26 22:30] LABS: BILIRUBIN,TOTAL 0.4 mg/dL (0.2-1); TOT PROT 7.7 g/dl (6.4-8.2)
[2024-01-26] MEDS: PIPERACILLIN/TAZOB 4.5 GM 4.5 GM in DEXTROSE 5%-WATER 100 ML IVPB ONE (22:34)
[2024-01-26] MEDS: morphine CARPU-JECT 4 MG/1 ML DISP.SYRIN IVPUSH ONE (22:40)
[2024-01-26 23:02] LABS: LACTIC ACID 7.3 mmol/L (0.4-2.0)
[2024-01-27] MEDS: SODIUM CHLORIDE 1,000 ML IV SCH (01:21)
[2024-01-27 01:40] LABS: LACTIC ACID 2.3 mmol/L (0.4-2.0)
[2024-01-27] MEDS ORDERED: PIPERACILLIN/TAZOB 4.5 GM 4.5 GM/100 ML BAG IVPB ONE (04:23)
[2024-01-27] MEDS: PIPERACILLIN/TAZOB 4.5 GM 4.5 GM in DEXTROSE 5%-WATER 100 ML IVPB SCH ×2 (04:42→19:18)
[2024-01-27] MEDS ORDERED: ALBUTEROL SO4 0.083% IH SOL 2.5 MG/3 ML VIAL.NEB. NEB PRN (05:34)
[2024-01-27 06:31] LABS: BASO % 0.3 % (0-2.0); EOS % 0.2 % (0-4.5); HEMATOCRIT 31.1 % (35.4-49); HEMOGLOBIN 9.7 GM/dL (11.7-16.9); LYMPH % 4.8 % (8-40); MCH 28.5 pg (25.7-33.7); MCHC 31.2 g/dl (32.0-35.9); MEAN CELL VOLUME 91.3 fl (80-96); MEAN PLT VOLUME 6.7 fl (7.5-11.1); MONO % 4.1 % (3.8-10.2); NEUT % 90.6 % (42.8-82.8); PLATELET COUNT 374 10^3/uL (134-434); RBC 3.41 M/mm3 (4.00-5.60); RDW 19.4 % (11.9-15.9); WHITE BLOOD COUNT 17.8 K/mm3 (4.0-10.0)
[2024-01-27 06:49] LABS: CHLORIDE 99 mmol/L (98-107); POTASSIUM 3.4 mmol/L (3.5-5.1); SODIUM 132 mmol/L (136-145)
[2024-01-27 06:51] LABS: ANION GAP 14 mmol/L (4-13); BLOOD UREA NITROGEN 8.4 mg/dL (7-18); CO2 19 mmol/L (21-32); GLUCOSE,RANDOM 80 mg/dL (74-106)
[2024-01-27 06:54] LABS: SGOT/AST 14 U/L (15-37); SGPT/ALT 26 U/L (13-61)
[2024-01-27 06:56] LABS: BILIRUBIN,TOTAL 0.6 mg/dL (0.2-1); TOT PROT 5.9 g/dl (6.4-8.2)
[2024-01-27 06:57] LABS: ALK PHOS 87 U/L (45-117)
[2024-01-27 07:02] LABS: ALBUMIN 2.3 g/dl (3.4-5.0); CALCIUM 6.8 mg/dL (8.5-10.1)
[2024-01-27] MEDS ORDERED: HYDROmorphone HCl 2 MG/ML VIAL ONE (07:33)
[2024-01-27] MEDS: HYDROmorphone HCl 2 MG/ML VIAL IVPB ONE (07:39)
[2024-01-27] MEDS: PANTOPRAZOLE SODIUM 40 MG VIAL IVPUSH SCH (10:56)
[2024-01-27] MEDS: ACETAMINOPHEN 1000 MG/100 ML BAG IVPB PRN (10:57)
[2024-01-27] MEDS: LOPERAMIDE HCL 2 MG CAPSULE PO SCH (12:18)
[2024-01-27] MEDS: CODEINE SO4 30 MG TABLET PO SCH (12:18)
[2024-01-27] MEDS: PSYLLIUM 5.85 GM PACKET PO SCH (15:02)
[2024-01-27] MEDS: PIPERACILLIN/TAZOB 3.375 GM 3.375 GM in DEXTROSE 5%-WATER - 50 ML IVPB SCH (17:47)
[2024-01-28] MEDS: MELATONIN 5 MG TABLETS PO PRN (00:03)
[2024-01-28 06:52] LABS: CHLORIDE 106 mmol/L (98-107); SODIUM 137 mmol/L (136-145)
[2024-01-28 06:56] LABS: BLOOD UREA NITROGEN 6.4 mg/dL (7-18)
[2024-01-28 06:57] LABS: CO2 22 mmol/L (21-32)
[2024-01-28 06:58] LABS: GLUCOSE,RANDOM 79 mg/dL (74-106)
[2024-01-28 06:59] LABS: CREATININE 0.6 mg/dL (0.55-1.3); SGPT/ALT 15 U/L (13-61)
[2024-01-28 07:00] LABS: BILIRUBIN,TOTAL 0.4 mg/dL (0.2-1)
[2024-01-28 07:01] LABS: SGOT/AST 10 U/L (15-37); TOT PROT 4.5 g/dl (6.4-8.2)
[2024-01-28 07:02] LABS: ALK PHOS 66 U/L (45-117)
[2024-01-28 07:43] LABS: ALBUMIN 1.6 g/dl (3.4-5.0); ANION GAP 8 mmol/L (4-13); CALCIUM 6.1 mg/dL (8.5-10.1); POTASSIUM 2.8 mmol/L (3.5-5.1)
[2024-01-28 08:01] LABS: BASO % 0.6 % (0-2.0); EOS % 0.6 % (0-4.5); HEMATOCRIT 24.4 % (35.4-49); HEMOGLOBIN 8.1 GM/dL (11.7-16.9); LYMPH % 8.6 % (8-40); MCHC 33.3 g/dl (32.0-35.9); MEAN CELL VOLUME 90.3 fl (80-96); MEAN PLT VOLUME 6.8 fl (7.5-11.1); MONO % 6.1 % (3.8-10.2); NEUT % 84.1 % (42.8-82.8); PLATELET COUNT 304 10^3/uL (134-434); RDW 19.8 % (11.9-15.9); WHITE BLOOD COUNT 7.3 K/mm3 (4.0-10.0)
[2024-01-28] MEDS: POTASSIUM CHLORIDE ORAL LIQUID 20 MEQ/15 ML PO SCH (14:39)
[2024-01-28 21:12] LABS: CHLORIDE 105 mmol/L (98-107); SODIUM 135 mmol/L (136-145)
[2024-01-28 21:13] LABS: GLUCOSE,RANDOM 91 mg/dL (74-106)
[2024-01-28 21:15] LABS: ALBUMIN 1.6 g/dl (3.4-5.0); BLOOD UREA NITROGEN 4.5 mg/dL (7-18); CO2 19 mmol/L (21-32)
[2024-01-28 21:17] LABS: CREATININE 0.5 mg/dL (0.55-1.3); SGOT/AST 8 U/L (15-37); SGPT/ALT 14 U/L (13-61)
[2024-01-28 21:19] LABS: ALK PHOS 66 U/L (45-117); BILIRUBIN,TOTAL 0.3 mg/dL (0.2-1); TOT PROT 4.4 g/dl (6.4-8.2)
[2024-01-28 21:27] LABS: ANION GAP 11 mmol/L (4-13); CALCIUM 5.6 mg/dL (8.5-10.1); POTASSIUM 2.8 mmol/L (3.5-5.1)
[2024-01-28] MEDS: KCL 10 MEQ IVPB 10 MEQ/100 ML INFUS.BAG IVPB SCH (22:28)
[2024-01-29 06:29] LABS: HEMATOCRIT 25.2 % (35.4-49); HEMOGLOBIN 8.2 GM/dL (11.7-16.9); MCH 29.8 pg (25.7-33.7); MCHC 32.8 g/dl (32.0-35.9); MEAN CELL VOLUME 90.8 fl (80-96); MEAN PLT VOLUME 6.6 fl (7.5-11.1); PLATELET COUNT 333 10^3/uL (134-434); RBC 2.77 M/mm3 (4.00-5.60); RDW 19.2 % (11.9-15.9); WHITE BLOOD COUNT 6.4 K/mm3 (4.0-10.0)
[2024-01-29 06:48] LABS: CHLORIDE 104 mmol/L (98-107); POTASSIUM 3.8 mmol/L (3.5-5.1); SODIUM 132 mmol/L (136-145)
[2024-01-29 06:52] LABS: ALBUMIN 1.7 g/dl (3.4-5.0); ANION GAP 8 mmol/L (4-13); BLOOD UREA NITROGEN 3.6 mg/dL (7-18); CO2 19 mmol/L (21-32); GLUCOSE,RANDOM 67 mg/dL (74-106)
[2024-01-29 06:55] LABS: CREATININE 0.6 mg/dL (0.55-1.3); SGOT/AST 12 U/L (15-37); SGPT/ALT 16 U/L (13-61)
[2024-01-29 06:56] LABS: BILIRUBIN,TOTAL 0.5 mg/dL (0.2-1)
[2024-01-29 06:57] LABS: ALK PHOS 75 U/L (45-117); TOT PROT 4.8 g/dl (6.4-8.2)
[2024-01-29 07:02] LABS: MAGNESIUM 0.5 mg/dL (1.8-2.4)
[2024-01-29] MEDS: MAGNESIUM SULF 50% (8.12 MEQ/2 ML-1 GM VIAL) IVPB ONE ×2 (08:15→14:05)
[2024-01-29] MEDS: POTASSIUM CHLORIDE ORAL LIQUID 20 MEQ/15 ML PO ONE (09:35)
[2024-01-29] MEDS: CALCIUM CARBONATE 650 MG TABLET PO SCH (09:35)
[2024-01-29 12:19] LABS: PHOSPHOROUS 1.7 mg/dL (2.5-4.9)
[2024-01-29] MEDS: CALCIUM GLUCONATE 10% - 1,000 MG/10 ML VIAL IVPB ONE (14:00)
[2024-01-29] MEDS: NAPH,MB-DB/K PH,MBDB POWDER PACKET PO SCH (14:06)
[2024-01-29] MEDS: SODIUM PHOSPHATE - 15 MM in SODIUM CHLORIDE 250 ML IVPB ONE (14:53)
[2024-01-29] MEDS: FLUTICASONE/UMECLIDIN/VILANTER(200-62.5-25 TRELEGY ELLIPTA) INAHLER IH SCH (18:35)
[2024-01-30 07:20] LABS: BASO % 0.9 % (0-2.0); EOS % 2.2 % (0-4.5); HEMATOCRIT 24.7 % (35.4-49); HEMOGLOBIN 8.3 GM/dL (11.7-16.9); LYMPH % 22.9 % (8-40); MCH 30.5 pg (25.7-33.7); MCHC 33.5 g/dl (32.0-35.9); MEAN CELL VOLUME 90.8 fl (80-96); MEAN PLT VOLUME 6.4 fl (7.5-11.1); PLATELET COUNT 349 10^3/uL (134-434); RBC 2.72 M/mm3 (4.00-5.60); RDW 19.3 % (11.9-15.9); WHITE BLOOD COUNT 3.5 K/mm3 (4.0-10.0)
[2024-01-30 08:29] LABS: CHLORIDE 103 mmol/L (98-107); POTASSIUM 3.4 mmol/L (3.5-5.1); SODIUM 131 mmol/L (136-145)
[2024-01-30 08:32] LABS: ALBUMIN 1.7 g/dl (3.4-5.0); ANION GAP 8 mmol/L (4-13); CO2 21 mmol/L (21-32)
[2024-01-30 08:33] LABS: GLUCOSE,RANDOM 85 mg/dL (74-106); MAGNESIUM 1.6 mg/dL (1.8-2.4)
[2024-01-30 08:35] LABS: CREATININE 0.5 mg/dL (0.55-1.3); SGOT/AST 9 U/L (15-37); SGPT/ALT 15 U/L (13-61)
[2024-01-30 08:37] LABS: ALK PHOS 77 U/L (45-117); BILIRUBIN,TOTAL 0.4 mg/dL (0.2-1); TOT PROT 4.8 g/dl (6.4-8.2)
[2024-01-30 08:41] LABS: BLOOD UREA NITROGEN 2.4 mg/dL (7-18)
[2024-01-30] MEDS: MAGNESIUM SULF 50% (8.12 MEQ/2 ML-1 GM VIAL) IVPB ONE (10:15)
[2024-01-30] MEDS: CALCIUM GLUCONATE 10% - 1,000 MG/10 ML VIAL IVPUSH ONE (10:16)
[2024-01-30] MEDS: HEPARIN NA (PORCINE) 5,000 UNITS/ML 1ML VIAL SQ SCH (10:17)
[2024-01-30] MEDS: CALCITRIOL 0.25 MCG CAPSULE (FP) PO SCH (10:18)
[2024-01-30] MEDS: POTASSIUM CHLORIDE 10 MEQ in SODIUM CHLORIDE 1,000 ML IV SCH (11:44)
[2024-01-30] MEDS: PANTOPRAZOLE 40 MG TABLET PO SCH (11:46)
[2024-01-30] MEDS: POTASSIUM PHOSPHATE 15 MM in SODIUM CHLORIDE 250 ML IVPB ONE (11:46)
[2024-01-30] MEDS: ATORVASTATIN CA 40 MG TABLET (FP) PO SCH (21:21)
[2024-01-31 07:16] LABS: BASO % 0.8 % (0-2.0); EOS % 2.2 % (0-4.5); HEMATOCRIT 25.1 % (35.4-49); HEMOGLOBIN 8.1 GM/dL (11.7-16.9); LYMPH % 26.6 % (8-40); MCHC 32.1 g/dl (32.0-35.9); MEAN CELL VOLUME 90.2 fl (80-96); MEAN PLT VOLUME 6.6 fl (7.5-11.1); MONO % 12.1 % (3.8-10.2); NEUT % 58.3 % (42.8-82.8); PLATELET COUNT 382 10^3/uL (134-434); RBC 2.78 M/mm3 (4.00-5.60); WHITE BLOOD COUNT 4.3 K/mm3 (4.0-10.0)
[2024-01-31 07:36] LABS: CHLORIDE 103 mmol/L (98-107); POTASSIUM 3.5 mmol/L (3.5-5.1); SODIUM 133 mmol/L (136-145)
[2024-01-31 07:47] LABS: ALBUMIN 1.6 g/dl (3.4-5.0); ANION GAP 9 mmol/L (4-13); CO2 22 mmol/L (21-32); GLUCOSE,RANDOM 81 mg/dL (74-106); MAGNESIUM 1.6 mg/dL (1.8-2.4)
[2024-01-31 07:50] LABS: CREATININE 0.5 mg/dL (0.55-1.3); PHOSPHOROUS 1.6 mg/dL (2.5-4.9); SGOT/AST 9 U/L (15-37); SGPT/ALT 14 U/L (13-61)
[2024-01-31 07:51] LABS: BILIRUBIN,TOTAL 0.4 mg/dL (0.2-1); TOT PROT 4.7 g/dl (6.4-8.2)
[2024-01-31 07:53] LABS: ALK PHOS 80 U/L (45-117)
[2024-01-31 07:58] LABS: BLOOD UREA NITROGEN 2.3 mg/dL (7-18); CALCIUM 6.2 mg/dL (8.5-10.1)
[2024-01-31] MEDS: MAGNESIUM SULFATE IN WATER 2 GM/50 ML IVPB IVPB ONE (08:45)
[2024-01-31] MEDS: POTASSIUM CHLORIDE ORAL LIQUID 20 MEQ/15 ML PO ONE (08:45)
[2024-01-31] MEDS: POTASSIUM CHLORIDE TABS 10 MEQ TABLET.ER (FP) PO SCH (09:06)
[2024-01-31] MEDS: MAGNESIUM OXIDE 400 MG TABLET (FP) PO SCH (09:06)
[2024-01-31] MEDS: BICALUTAMIDE 50 MG TABLET (FP) PO SCH (09:07)
[2024-01-31] MEDS: POTASSIUM PHOSPHATE 30 MM in SODIUM CHLORIDE 500 ML IVPB ONE (12:02)
[2024-01-31] MEDS: MAGNESIUM SULF 50% (8.12 MEQ/2 ML-1 GM VIAL) IVPB ONE (12:19)
[2024-01-31] MEDS: AMOX TR/POT CLAV 875MG/125MG TABLETS (FP) PO SCH (16:59)
[2024-01-31] MEDS: [UNRECOGNIZED DRUG - OTHER] IV SCH (16:59)
[2024-01-31] MEDS: AMINO ACID 8% IV SCH (16:59)
[2024-02-01] MEDS ORDERED: AMINO ACID 8 % IN D14W 1,000 ML IV.SOLN IV SCH (08:00)
[2024-02-01 12:13] VITALS: BMI 22.3
[2024-02-01 12:55] LABS: CHLORIDE 101 mmol/L (98-107); POTASSIUM 3.8 mmol/L (3.5-5.1); SODIUM 134 mmol/L (136-145)
[2024-02-01 12:58] LABS: ALBUMIN 1.6 g/dl (3.4-5.0); ANION GAP 7 mmol/L (4-13); BLOOD UREA NITROGEN 6.5 mg/dL (7-18); CO2 26 mmol/L (21-32); GLUCOSE,RANDOM 94 mg/dL (74-106); MAGNESIUM 1.7 mg/dL (1.8-2.4)
[2024-02-01 13:01] LABS: CREATININE 0.3 mg/dL (0.55-1.3); SGOT/AST 8 U/L (15-37); SGPT/ALT 14 U/L (13-61)
[2024-02-01 13:03] LABS: BILIRUBIN,TOTAL 0.4 mg/dL (0.2-1); TOT PROT 5.3 g/dl (6.4-8.2)
[2024-02-01 13:04] LABS: ALK PHOS 82 U/L (45-117)
[2024-02-01 13:08] LABS: CALCIUM 6.7 mg/dL (8.5-10.1)
[2024-02-01] MEDS ORDERED: [UNRECOGNIZED DRUG - OTHER] IV SCH ×2 (13:37→13:52)
[2024-02-01] MEDS ORDERED: AMINO ACID 8% IV SCH ×2 (13:37→13:52)
[2024-02-01] MEDS ORDERED: ALBUTEROL SO4 0.083% IH SOL 2.5 MG/3 ML VIAL.NEB. NEB PRN (13:54)
[2024-02-01] MEDS: PSYLLIUM 5.85 GM PACKET PO SCH (14:35)
[2024-02-01] MEDS: THIAMINE HCL IV SCH (15:16)
[2024-02-01] MEDS: [UNRECOGNIZED DRUG - OTHER] IV SCH (15:16)
[2024-02-01] MEDS: AMINO ACID 8% IV SCH (15:16)
[2024-02-01] MEDS: LOPERAMIDE HCL 2 MG CAPSULE PO SCH (18:09)
[2024-02-01] MEDS: CALCIUM CARBONATE 650 MG TABLET PO SCH (21:43)
[2024-02-01] MEDS: HEPARIN NA (PORCINE) 5,000 UNITS/ML 1ML VIAL SQ SCH (21:44)
[2024-02-01] MEDS: CODEINE SO4 30 MG TABLET PO SCH (21:44)
[2024-02-01] MEDS: ATORVASTATIN CA 40 MG TABLET (FP) PO SCH (21:44)
[2024-02-02] MEDS: MELATONIN 5 MG TABLETS PO PRN (01:11)
[2024-02-02 06:13] VITALS: BP 96/58; PULSE 75; RESP 18; TEMP 98.4
[2024-02-02] MEDS: PANTOPRAZOLE 40 MG TABLET PO SCH (09:25)
[2024-02-02] MEDS: FLUTICASONE/UMECLIDIN/VILANTER(200-62.5-25 TRELEGY ELLIPTA) INAHLER IH SCH (09:28)
[2024-02-02 10:42] LABS: BASO % 1.1 % (0-2.0); EOS % 1.4 % (0-4.5); HEMATOCRIT 29.3 % (35.4-49); HEMOGLOBIN 9.4 GM/dL (11.7-16.9); LYMPH % 21.3 % (8-40); MCHC 32.1 g/dl (32.0-35.9); MEAN CELL VOLUME 90.2 fl (80-96); MEAN PLT VOLUME 6.2 fl (7.5-11.1); MONO % 9.2 % (3.8-10.2); PLATELET COUNT 448 10^3/uL (134-434); RBC 3.25 M/mm3 (4.00-5.60); RDW 18.8 % (11.9-15.9); WHITE BLOOD COUNT 5.7 K/mm3 (4.0-10.0)
[2024-02-02 10:58] LABS: CHLORIDE 101 mmol/L (98-107); POTASSIUM 3.9 mmol/L (3.5-5.1); SODIUM 131 mmol/L (136-145)
[2024-02-02 11:00] LABS: CALCIUM 7.6 mg/dL (8.5-10.1)
[2024-02-02 11:01] LABS: ALBUMIN 1.8 g/dl (3.4-5.0); ANION GAP 6 mmol/L (4-13); BLOOD UREA NITROGEN 6.3 mg/dL (7-18); CO2 25 mmol/L (21-32); GLUCOSE,RANDOM 92 mg/dL (74-106); MAGNESIUM 1.6 mg/dL (1.8-2.4)
[2024-02-02 11:04] LABS: CREATININE 0.5 mg/dL (0.55-1.3); SGOT/AST 12 U/L (15-37); SGPT/ALT 13 U/L (13-61)
[2024-02-02 11:05] LABS: BILIRUBIN,TOTAL 0.6 mg/dL (0.2-1)
[2024-02-02 11:07] LABS: ALK PHOS 81 U/L (45-117)
[2024-02-02 11:08] LABS: PHOSPHOROUS 1.1 mg/dL (2.5-4.9)
== END 2024-02-02 11:02 | disposition home health service (06) | DRG 194 ==
LOC: JER 20:49 → JERBED 01-27 01:19 → J2W 01-27 09:25 → J5S 02-01 13:52
PROVIDERS: ADMIT Internal Medicine; ATTEND Family Medicine
PROC: 02HV33Z Insertion of Infusion Device into Superior Vena Cava, Percutaneous Approach (ICD-10-PCS; principal; 2024-01-31)
PROC: B548ZZA Ultrasonography of Superior Vena Cava, Guidance (ICD-10-PCS; 2024-01-31)
DX: J18.9 Pneumonia, unspecified organism (principal); E46 Unspecified protein-calorie malnutrition; E87.20 Acidosis, unspecified; K92.2 Gastrointestinal hemorrhage, unspecified; J96.11 Chronic respiratory failure with hypoxia; J96.12 Chronic respiratory failure with hypercapnia; C61 Malignant neoplasm of prostate; I25.10 Atherosclerotic heart disease of native coronary artery without angina pectoris; J44.9 Chronic obstructive pulmonary disease, unspecified; I50.9 Heart failure, unspecified; D72.829 Elevated white blood cell count, unspecified; Z93.3 Colostomy status; Z68.22 Body mass index [BMI] 22.0-22.9, adult; N40.0 Benign prostatic hyperplasia without lower urinary tract symptoms; I10 Essential (primary) hypertension; E78.5 Hyperlipidemia, unspecified; K52.9 Noninfective gastroenteritis and colitis, unspecified; Z95.5 Presence of coronary angioplasty implant and graft
CPT/HCPCS: 0241U-QW; 36415; 36569; 71045-TC-FY; 74176-TC; 80053; 81003; 82272; 82607; 82728; 82746; 82803; 83540; 83550; 83605; 83735; 84100; 84484; 85025; 85027; 85610; 85651; 85730; 86140; 86850; 86900; 86901; 87040; 87045; 87046; 87086; 87186; 87205; 87209; 87324; 87449; 93005; 93010; 94010; 97116-GP; 97161-GP; 99285-25; J0131; J1644

== ENCOUNTER 2024-04-13 17:44 | Emergency (ER) | payer OTHER ==
[2024-04-13 17:51] VITALS: TEMP 99.7; BMI 23.6
[2024-04-13] MEDS: LACTATED RINGERS SOLUTION 1000 ML INFUS.BAG IV ONE ×2 (19:49→23:01)
[2024-04-13 19:56] LABS: BASO % 0.6 % (0-2.0); EOS % 3.2 % (0-4.5); HEMATOCRIT 28.4 % (35.4-49); HEMOGLOBIN 9.6 GM/dL (11.7-16.9); LYMPH % 13.9 % (8-40); MCH 29.1 pg (25.7-33.7); MEAN CELL VOLUME 85.7 fl (80-96); MEAN PLT VOLUME 7.5 fl (7.5-11.1); MONO % 11.8 % (3.8-10.2); NEUT % 70.5 % (42.8-82.8); PLATELET COUNT 344 10^3/uL (134-434); RBC 3.31 M/mm3 (4.00-5.60); RDW 16.7 % (11.9-15.9); WHITE BLOOD COUNT 9.2 K/mm3 (4.0-10.0)
[2024-04-13 20:14] LABS: MAGNESIUM 1.1 mg/dL (1.8-2.4)
[2024-04-13 20:25] LABS: POTASSIUM 3.8 mmol/L (3.5-5.1)
[2024-04-13 20:27] LABS: CALCIUM 7.8 mg/dL (8.5-10.1)
[2024-04-13 20:28] LABS: ALBUMIN 2.7 g/dl (3.4-5.0); BLOOD UREA NITROGEN 13.2 mg/dL (7-18)
[2024-04-13 20:31] LABS: CREATININE 0.9 mg/dL (0.55-1.3)
[2024-04-13 20:32] LABS: BILIRUBIN,TOTAL 0.4 mg/dL (0.2-1); TOT PROT 6.7 g/dl (6.4-8.2)
[2024-04-13 20:33] LABS: ANISOCYTOSIS 1+; MACROCYTOSIS 0
[2024-04-13] MEDS ORDERED: ACETAMINOPHEN INJECTION 100 ML ONE (20:56)
[2024-04-13] MEDS ORDERED: ONDANSETRON 4 MG/2 ML VIAL ONE (20:56)
[2024-04-13] MEDS ORDERED: MAGNESIUM SULFATE IN WATER 2 GM/50 ML IVPB IVPB ONE (20:56)
[2024-04-13] MEDS: ONDANSETRON 4 MG/2 ML VIAL IVPUSH ONE (21:13)
[2024-04-13] MEDS: ACETAMINOPHEN 1000 MG/100 ML BAG IVPB ONE (21:13)
[2024-04-13] MEDS: MAGNESIUM SULF 50% (8.12 MEQ/2 ML-1 GM VIAL) IVPB ONE (21:25)
[2024-04-13 22:11] LABS: CHLORIDE 97 mmol/L (98-107); SODIUM 133 mmol/L (136-145)
[2024-04-13 22:14] LABS: ALBUMIN 2.6 g/dl (3.4-5.0); BLOOD UREA NITROGEN 12.7 mg/dL (7-18); CALCIUM 7.6 mg/dL (8.5-10.1); CO2 24 mmol/L (21-32); GLUCOSE,RANDOM 140 mg/dL (74-106)
[2024-04-13 22:16] LABS: ANION GAP 12 mmol/L (4-13); POTASSIUM 2.8 mmol/L (3.5-5.1)
[2024-04-13 22:17] LABS: SGOT/AST 15 U/L (15-37); SGPT/ALT 16 U/L (13-61)
[2024-04-13 22:19] LABS: BILIRUBIN,TOTAL 0.5 mg/dL (0.2-1); TOT PROT 6.4 g/dl (6.4-8.2)
[2024-04-13 22:21] LABS: ALK PHOS 82 U/L (45-117)
[2024-04-13] MEDS ORDERED: POTASSIUM CHLORIDE TABS 20 MEQ TABLET.ER (FP) PO ONE (22:30)
[2024-04-13] MEDS ORDERED: KCL 10 MEQ IVPB 10 MEQ/100 ML INFUS.BAG IVPB ONE ×2 (22:30→23:53)
[2024-04-13] MEDS: POTASSIUM CHLORIDE TABS 20 MEQ TABLET.ER (FP) PO ONE (22:35)
[2024-04-13] MEDS: KCL 10 MEQ IVPB 10 MEQ/100 ML INFUS.BAG IVPB SCH (23:01)
[2024-04-13 23:11] VITALS: RESP 19
[2024-04-14 01:02] VITALS: BP 110/54; PULSE 60
== END 2024-04-14 01:57 | disposition home or self-care (01) ==
LOC: JER 17:44
PROC: 3E033NZ Introduction of Analgesics, Hypnotics, Sedatives into Peripheral Vein, Percutaneous Approach (ICD-10-PCS; principal; 2024-04-13)
PROC: 3E033GC Introduction of Other Therapeutic Substance into Peripheral Vein, Percutaneous Approach (ICD-10-PCS; 2024-04-13)
PROC: 3E033GC Introduction of Other Therapeutic Substance into Peripheral Vein, Percutaneous Approach (ICD-10-PCS; 2024-04-13)
DX: R11.0 Nausea (principal); R63.0 Anorexia
CPT/HCPCS: 36415; 74177-TC; 80053; 83690; 83735; 85025; 93005; 93010; 99285-25; J0131; Q9967

== ENCOUNTER 2024-04-23 17:20 | Inpatient (IN) | payer OTHER ==
[2024-04-23] MEDS ORDERED: ACETAMINOPHEN INJECTION 100 ML ONE (18:09)
[2024-04-23] MEDS: SODIUM CHLORIDE 0.9% 500 ML INFUS.BAG IV ONE (18:15)
[2024-04-23] MEDS: ACETAMINOPHEN 1000 MG/100 ML BAG IVPB ONE (18:15)
[2024-04-23 18:24] LABS: BASO % 0.7 % (0-2.0); HEMATOCRIT 30.4 % (35.4-49); HEMOGLOBIN 9.9 GM/dL (11.7-16.9); LYMPH % 16.6 % (8-40); MCH 27.9 pg (25.7-33.7); MCHC 32.7 g/dl (32.0-35.9); MEAN CELL VOLUME 85.4 fl (80-96); NEUT % 66.7 % (42.8-82.8); PLATELET COUNT 455 10^3/uL (134-434); RBC 3.56 M/mm3 (4.00-5.60); RDW 16.3 % (11.9-15.9); WHITE BLOOD COUNT 6.8 K/mm3 (4.0-10.0)
[2024-04-23 18:35] LABS: VENOUS BASE EXCESS -0.9 mmol/L (-2-2); VENOUS O2 SATURATION 37.5 % (70-80); VENOUS PCO2 38.6 mmHg (38-52); VENOUS PH 7.405 (7.310-7.410)
[2024-04-23 18:41] LABS: INR 1.46 (0.83-1.09); PROTHROMBIN TIME (PATIENT) 16.3 SEC (9.7-13.0)
[2024-04-23 18:44] LABS: ACTIVATED PTT 32.5 SECONDS (25.2-36.5); POTASSIUM 4.1 mmol/L (3.5-5.1)
[2024-04-23 18:46] LABS: ALBUMIN 2.4 g/dl (3.4-5.0); BLOOD UREA NITROGEN 18.1 mg/dL (7-18); CALCIUM 8.2 mg/dL (8.5-10.1)
[2024-04-23 18:49] LABS: CREATININE 1.1 mg/dL (0.55-1.3)
[2024-04-23 18:52] LABS: BILIRUBIN,TOTAL 0.7 mg/dL (0.2-1); TOT PROT 6.9 g/dl (6.4-8.2)
[2024-04-23] MEDS ORDERED: morphine SULFATE 4 MG/ML VIAL ONE (19:02)
[2024-04-23] MEDS: morphine CARPU-JECT 4 MG/1 ML DISP.SYRIN IVPUSH ONE ×2 (19:10→22:00)
[2024-04-23 19:56] LABS: URINE APPEARANCE CLEAR; URINE BILIRUBIN NEGATIVE (NEGATIVE); URINE COLOR YELLOW; URINE GLUCOSE (UA) NEGATIVE (NEGATIVE); URINE KETONE NEGATIVE (NEGATIVE); URINE LEUK ESTERASE NEGATIVE (NEGATIVE); URINE NITRITE NEGATIVE (NEGATIVE); URINE PROTEIN TRACE (NEGATIVE); URINE UROBILINOGEN 0.2 mg/dL (0.2-1.0)
[2024-04-23] MEDS ORDERED: PIPERACILLIN/TAZOB 4.5 GM 4.5 GM/100 ML BAG IVPB ONE (21:19)
[2024-04-23] MEDS ORDERED: VANCOMYCIN 1 GRAM (PRE-DOCKED) 1,000 MG/250 ML BAG IVPB ONE (21:20)
[2024-04-23] MEDS: PIPERACILLIN/TAZOB 4.5 GM 4.5 GM in DEXTROSE 5%-WATER 100 ML IVPB ONE (21:27)
[2024-04-23] MEDS ORDERED: MORPHINE SULFATE 2 MG/ML SYRINGE ONE (21:36)
[2024-04-23] MEDS: VANCOMYCIN 1,000 MG in DEXTROSE 5%-WATER - 250 ML IVPB ONE (22:32)
[2024-04-23] MEDS ORDERED: MELATONIN 5 MG TABLETS PO PRN (23:30)
[2024-04-24] MEDS: ACETAMINOPHEN 1000 MG/100 ML BAG IVPB PRN (00:45)
[2024-04-24] MEDS: SODIUM CHLORIDE 1,000 ML IV SCH (00:47)
[2024-04-24 03:27] VITALS: BMI 29.4
[2024-04-24] MEDS: metoPROLOL SUCCINATE 25 MG TAB.SR.24H (FP) PO SCH (09:42)
[2024-04-24 10:03] LABS: BASO % 0.9 % (0-2.0); EOS % 11.2 % (0-4.5); HEMATOCRIT 30.4 % (35.4-49); LYMPH % 14.3 % (8-40); MCH 28.2 pg (25.7-33.7); MCHC 32.9 g/dl (32.0-35.9); MEAN CELL VOLUME 85.7 fl (80-96); MEAN PLT VOLUME 7.2 fl (7.5-11.1); MONO % 7.5 % (3.8-10.2); NEUT % 66.1 % (42.8-82.8); PLATELET COUNT 465 10^3/uL (134-434); RBC 3.55 M/mm3 (4.00-5.60); RDW 16.6 % (11.9-15.9)
[2024-04-24 10:23] LABS: POTASSIUM 3.3 mmol/L (3.5-5.1)
[2024-04-24 10:28] LABS: CALCIUM 8.1 mg/dL (8.5-10.1)
[2024-04-24 10:29] LABS: BLOOD UREA NITROGEN 11.8 mg/dL (7-18)
[2024-04-24] MEDS: CEFTRIAXONE 1 GM in DEXTROSE 5%-WATER - 50 ML IVPB SCH (10:45)
[2024-04-24] MEDS: BICALUTAMIDE 50 MG TABLET (FP) PO SCH (12:06)
[2024-04-24] MEDS: FLUTICASONE/UMECLIDIN/VILANTER(200-62.5-25 TRELEGY ELLIPTA) INAHLER IH SCH (12:08)
[2024-04-24 14:42] VITALS: RESP 18
[2024-04-24] MEDS: VANCOMYCIN ORAL SOLUTION 125 MG/2.5 ML PO SCH (19:00)
[2024-04-24] MEDS: BANATROL PLUS POWDER PACKET PO SCH (21:57)
[2024-04-24] MEDS: ATORVASTATIN CA 40 MG TABLET (FP) PO SCH (21:57)
[2024-04-24] MEDS: morphine SULFATE 4 MG/ML VIAL IVPUSH PRN (22:20)
[2024-04-26 08:50] LABS: HEMATOCRIT 30.3 % (35.4-49); MCH 28.6 pg (25.7-33.7); MCHC 32.9 g/dl (32.0-35.9); MEAN CELL VOLUME 86.8 fl (80-96); MEAN PLT VOLUME 6.8 fl (7.5-11.1); PLATELET COUNT 495 10^3/uL (134-434); RBC 3.49 M/mm3 (4.00-5.60); RDW 16.4 % (11.9-15.9); WHITE BLOOD COUNT 5.7 K/mm3 (4.0-10.0)
[2024-04-26 09:13] LABS: POTASSIUM 3.5 mmol/L (3.5-5.1)
[2024-04-26 09:26] LABS: CREATININE 0.7 mg/dL (0.55-1.3)
[2024-04-26 09:39] LABS: CALCIUM 8.5 mg/dL (8.5-10.1)
[2024-04-26 09:46] LABS: TOT PROT 6.2 g/dl (6.4-8.2)
[2024-04-26 10:44] VITALS: BP 112/60; PULSE 99; TEMP 97.8
[2024-04-26 10:47] LABS: BLOOD UREA NITROGEN 6.2 mg/dL (7-18)
[2024-04-26 10:48] LABS: ALBUMIN 2.3 g/dl (3.4-5.0); MAGNESIUM 1.4 mg/dL (1.8-2.4)
[2024-04-26 10:59] LABS: BILIRUBIN,TOTAL 0.3 mg/dL (0.2-1)
[2024-04-26] MEDS: VANCOMYCIN ORAL SOLUTION 125 MG/2.5 ML PO SCH (11:02)
== END 2024-04-26 17:54 | disposition home or self-care (01) | DRG 392 ==
LOC: JER 17:20 → JERBED 20:23 → J8W 23:35
PROVIDERS: ADMIT Internal Medicine; ATTEND Family Medicine
DX: A08.8 Other specified intestinal infections (principal); K62.5 Hemorrhage of anus and rectum; J96.11 Chronic respiratory failure with hypoxia; I25.10 Atherosclerotic heart disease of native coronary artery without angina pectoris; N40.0 Benign prostatic hyperplasia without lower urinary tract symptoms; E78.5 Hyperlipidemia, unspecified; J44.9 Chronic obstructive pulmonary disease, unspecified; R50.9 Fever, unspecified; K52.89 Other specified noninfective gastroenteritis and colitis; I10 Essential (primary) hypertension; D64.9 Anemia, unspecified; Z95.5 Presence of coronary angioplasty implant and graft
CPT/HCPCS: 0241U-QW; 36415; 71045-TC-FY; 74177-TC; 80048; 80053; 80299; 81003; 82272; 82397; 82803; 83605; 83735; 84484; 85025; 85027; 85610; 85730; 86140; 86850; 86900; 86901; 87040; 87045; 87046; 87077; 87086; 87186; 87209; 87324; 87449; 93005; 93010; 99285-25; J0131

== ENCOUNTER 2024-07-03 07:01 | Inpatient (IN) | payer OTHER ==
[2024-07-03] MEDS ORDERED: ACETAMINOPHEN INJECTION 100 ML ONE (07:57)
[2024-07-03] MEDS: ACETAMINOPHEN 1000 MG/100 ML BAG IVPB ONE (08:11)
[2024-07-03] MEDS: LACTATED RINGERS SOLUTION 1000 ML INFUS.BAG IV ONE ×2 (08:11→09:48)
[2024-07-03] MEDS: SODIUM CHLORIDE 0.9% 500 ML INFUS.BAG IV ONE ×2 (08:20→09:46)
[2024-07-03 08:21] LABS: VENOUS BASE EXCESS -7.9 mmol/L (-2-2); VENOUS O2 SATURATION 19.7 % (70-80); VENOUS PCO2 33.5 mmHg (38-52); VENOUS PH 7.329 (7.310-7.410)
[2024-07-03 08:27] LABS: HEMATOCRIT 28.5 % (35.4-49); HEMOGLOBIN 9.2 GM/dL (11.7-16.9); MCH 27.6 pg (25.7-33.7); MCHC 32.2 g/dl (32.0-35.9); MEAN CELL VOLUME 85.6 fl (80-96); MEAN PLT VOLUME 7.2 fl (7.5-11.1); PLATELET COUNT 352 10^3/uL (134-434); RBC 3.33 M/mm3 (4.00-5.60); WHITE BLOOD COUNT 26.8 K/mm3 (4.0-10.0)
[2024-07-03 08:33] LABS: INR 1.48 (0.83-1.09); PROTHROMBIN TIME (PATIENT) 16.5 SEC (9.7-13.0)
[2024-07-03 08:36] LABS: ACTIVATED PTT 36.9 SECONDS (25.2-36.5)
[2024-07-03] MEDS ORDERED: ONDANSETRON 4 MG/2 ML VIAL ONE (08:45)
[2024-07-03] MEDS: ONDANSETRON 4 MG/2 ML VIAL IVPUSH ONE (08:45)
[2024-07-03] MEDS: PIPERACILLIN/TAZOB 3.375 GM 3.375 GM in DEXTROSE 5%-WATER - 50 ML IVPB ONE (08:45)
[2024-07-03] MEDS ORDERED: PIPERACILLIN/TAZOB 3.375 GM 3.375 GM/50 ML BAG IVPB ONE ×2 (08:46→17:09)
[2024-07-03 08:48] LABS: LACTIC ACID 4.5 mmol/L (0.4-2.0)
[2024-07-03] MEDS ORDERED: VANCOMYCIN 1 GM PREMIX (F) 1 GM/200 ML BAG ONE (09:09)
[2024-07-03 09:27] LABS: CHLORIDE 99 mmol/L (98-107); POTASSIUM 4.6 mmol/L (3.5-5.1); SODIUM 131 mmol/L (136-145)
[2024-07-03 09:29] LABS: ANION GAP 14 mmol/L (4-13); BLOOD UREA NITROGEN 34.8 mg/dL (7-18); CALCIUM 8.8 mg/dL (8.5-10.1); CO2 18 mmol/L (21-32)
[2024-07-03] MEDS ORDERED: fentaNYL CITRATE 250 MCG/5 ML VIAL ONE (09:29)
[2024-07-03 09:30] LABS: GLUCOSE,RANDOM 90 mg/dL (74-106); MAGNESIUM 1.2 mg/dL (1.8-2.4)
[2024-07-03 09:32] LABS: SGOT/AST 32 U/L (15-37); SGPT/ALT 31 U/L (13-61)
[2024-07-03 09:33] LABS: BILIRUBIN,TOTAL 1.3 mg/dL (0.2-1); PHOSPHOROUS 4.3 mg/dL (2.5-4.9)
[2024-07-03 09:34] LABS: TOT PROT 7.4 g/dl (6.4-8.2)
[2024-07-03 09:35] LABS: ALK PHOS 52 U/L (45-117)
[2024-07-03] MEDS: VANCOMYCIN 1,000 MG in DEXTROSE 5%-WATER - 250 ML IVPB ONE (09:48)
[2024-07-03 09:50] LABS: N-TERMINAL BNP 94484.4 pg/ml (5-125)
[2024-07-03] MEDS: VANCOMYCIN HCL 1,500 MG in DEXTROSE 5%-WATER - 500 ML IVPB ONE (09:55)
[2024-07-03 10:03] LABS: EPI CELLS 14 /uL (0-25.1); HYALINE CASTS 4 /uL (0-3.1); URINE APPEARANCE CLEAR; URINE BACTERIA 2 /uL (0-1359); URINE BILIRUBIN NEGATIVE (NEGATIVE); URINE COLOR YELLOW; URINE GLUCOSE (UA) NEGATIVE (NEGATIVE); URINE KETONE NEGATIVE (NEGATIVE); URINE LEUK ESTERASE NEGATIVE (NEGATIVE); URINE NITRITE NEGATIVE (NEGATIVE); URINE PROTEIN 1+ (NEGATIVE); URINE RBC 5 /uL (0-23.9); URINE UROBILINOGEN 0.2 mg/dL (0.2-1.0); URINE WBC 15 /uL (0-25.8)
[2024-07-03] MEDS ORDERED: NOREPINEPHRINE BITARTRATE 4 MG/4 ML ML IV ONE (10:07)
[2024-07-03] MEDS: NOREPINEPHRINE BITARTRATE 4,000 MCG in DEXTROSE 5%-WATER - 496 ML IV SCH (10:36)
[2024-07-03] MEDS ORDERED: LIDOCAINE HCL 2% (20ML MULTI-DOSE VIAL) ONE (10:37)
[2024-07-03 10:48] LABS: ANISOCYTOSIS 1+; MACROCYTOSIS 1+
[2024-07-03] MEDS ORDERED: MAGNESIUM SULFATE IN WATER 2 GM/50 ML IVPB IVPB ONE (11:44)
[2024-07-03] MEDS: ALBUMIN HUMAN 5% 250 ML IV SOLUTION IV ONE (11:46)
[2024-07-03] MEDS ORDERED: AZITHROMYCIN IVPB 500 MG/250 ML BAG IVPB ONE (11:47)
[2024-07-03 11:48] LABS: LACTIC ACID 2.2 mmol/L (0.4-2.0)
[2024-07-03] MEDS: AZITHROMYCIN IVPB 500 MG in DEXTROSE 5%-WATER - 250 ML IVPB ONE (11:53)
[2024-07-03] MEDS: ALBUMIN HUMAN 5% 500 ML IV SOLUTION IV ONE (11:54)
[2024-07-03] MEDS: MAGNESIUM SULFATE IN WATER 2 GM/50 ML IVPB IVPB ONE (12:39)
[2024-07-03] MEDS: VASopressin 40 UNITS/100 ML BAG IV SCH (16:01)
[2024-07-03] MEDS: PIPERACILLIN/TAZOB 3.375 GM 50 ML IVPB SCH (17:18)
[2024-07-03] MEDS ORDERED: VANCOMYCIN 1,000 MG in DEXTROSE 5%-WATER - 250 ML IVPB SCH (18:00)
[2024-07-03] MEDS ORDERED: PIPERACILLIN/TAZOB 3.375 GM 3.375 GM in DEXTROSE 5%-WATER - 50 ML IVPB SCH (18:00)
[2024-07-03] MEDS ORDERED: VANCOMYCIN/WATER FOR INJ (PEG) 1,000 MG/200 ML BAG IVPB SCH (22:00)
[2024-07-04] MEDS: HYDROmorphone HCl 2 MG/ML VIAL IVPUSH PRN (01:50)
[2024-07-04 07:52] LABS: HEMATOCRIT 21.2 % (35.4-49); MCHC 32.4 g/dl (32.0-35.9); MEAN CELL VOLUME 86.3 fl (80-96); MEAN PLT VOLUME 7.5 fl (7.5-11.1); PLATELET COUNT 293 10^3/uL (134-434); RBC 2.46 M/mm3 (4.00-5.60); RDW 17.7 % (11.9-15.9); WHITE BLOOD COUNT 20.1 K/mm3 (4.0-10.0)
[2024-07-04 08:13] LABS: POTASSIUM 3.9 mmol/L (3.5-5.1)
[2024-07-04 08:24] LABS: HEMOGLOBIN 6.9 GM/dL (11.7-16.9)
[2024-07-04 08:25] LABS: ALBUMIN 2.6 g/dl (3.4-5.0); CALCIUM 7.9 mg/dL (8.5-10.1)
[2024-07-04 08:26] LABS: BLOOD UREA NITROGEN 31.2 mg/dL (7-18); MAGNESIUM 1.9 mg/dL (1.8-2.4)
[2024-07-04 08:28] LABS: CREATININE 1.2 mg/dL (0.55-1.3)
[2024-07-04 08:30] LABS: BILIRUBIN,TOTAL 0.8 mg/dL (0.2-1); TOT PROT 6.1 g/dl (6.4-8.2)
[2024-07-04 09:49] LABS: ANISOCYTOSIS 1+; MACROCYTOSIS 1+
[2024-07-04] MEDS: SODIUM CHLORIDE 1,000 ML IV SCH (10:19)
[2024-07-04] MEDS: VANCOMYCIN/WATER FOR INJ (PEG) 1,000 MG/200 ML BAG IVPB ONE (10:20)
[2024-07-04] MEDS ORDERED: VANCOMYCIN 250 MG/5 ML ORAL SOLUTION (RESTRICTED TO ID ONLY) PO SCH (12:00)
[2024-07-04] MEDS ORDERED: NOREPINEPHRINE BITARTRATE 4,000 MCG in DEXTROSE 5%-WATER - 496 ML IV SCH (13:30)
[2024-07-04] MEDS: NOREPINEPHRINE BITARTRATE/D5W 8 MG/250 ML BAG IVPB SCH (13:41)
[2024-07-04] MEDS: VANCOMYCIN ORAL SOLUTION 125 MG/2.5 ML PO SCH (17:31)
[2024-07-04] MEDS: PIPERACILLIN/TAZOB 3.375 GM 50 ML IVPB SCH (17:32)
[2024-07-04 17:54] LABS: HEMATOCRIT 28.1 % (35.4-49); HEMOGLOBIN 9.1 GM/dL (11.7-16.9); MCH 28.3 pg (25.7-33.7); MCHC 32.3 g/dl (32.0-35.9); MEAN CELL VOLUME 87.5 fl (80-96); MEAN PLT VOLUME 7.6 fl (7.5-11.1); PLATELET COUNT 252 10^3/uL (134-434); RBC 3.21 M/mm3 (4.00-5.60); RDW 16.8 % (11.9-15.9)
[2024-07-04 18:19] LABS: ANISOCYTOSIS 2+; MACROCYTOSIS 0; OVALOCYTE 1+
[2024-07-04] MEDS: ATORVASTATIN CA 40 MG TABLET (FP) PO SCH (21:28)
[2024-07-04] MEDS: VANCOMYCIN/WATER FOR INJ (PEG) 1,000 MG/200 ML BAG IVPB SCH (21:29)
[2024-07-04] MEDS: FLUDROCORTISONE ACETATE 0.1 MG TABLET (FP) PO SCH (21:29)
[2024-07-04] MEDS: HYDROCORTISONE SOD SUCCINATE 100 MG/2 ML VIAL IVPUSH SCH (21:29)
[2024-07-05 08:22] LABS: HEMATOCRIT 28.1 % (35.4-49); HEMOGLOBIN 9.3 GM/dL (11.7-16.9); MCH 28.6 pg (25.7-33.7); MCHC 33.2 g/dl (32.0-35.9); MEAN CELL VOLUME 86.1 fl (80-96); MEAN PLT VOLUME 8.3 fl (7.5-11.1); PLATELET COUNT 256 10^3/uL (134-434); RBC 3.27 M/mm3 (4.00-5.60); RDW 17.3 % (11.9-15.9)
[2024-07-05 08:35] LABS: POTASSIUM 3.6 mmol/L (3.5-5.1)
[2024-07-05 08:38] LABS: CALCIUM 7.9 mg/dL (8.5-10.1)
[2024-07-05 08:39] LABS: ALBUMIN 2.6 g/dl (3.4-5.0); BLOOD UREA NITROGEN 27.4 mg/dL (7-18)
[2024-07-05 08:42] LABS: CREATININE 1.1 mg/dL (0.55-1.3)
[2024-07-05 08:43] LABS: BILIRUBIN,TOTAL 1.2 mg/dL (0.2-1); TOT PROT 6.3 g/dl (6.4-8.2)
[2024-07-05] MEDS: FAMOTIDINE 20 MG TABLET PO SCH (09:01)
[2024-07-05] MEDS: FLUTICASONE/UMECLIDIN/VILANTER(200-62.5-25 TRELEGY ELLIPTA) INAHLER IH SCH (09:03)
[2024-07-05] MEDS: KCL 20 MEQ PREMIX BAG 20 MEQ/100 ML INFUS.BAG IVPB SCH (11:30)
[2024-07-06] MEDS: HYDROmorphone HCl 2 MG/ML VIAL IVPUSH PRN (00:49)
[2024-07-06 07:38] LABS: HEMATOCRIT 26.5 % (35.4-49); HEMOGLOBIN 8.8 GM/dL (11.7-16.9); MCH 28.6 pg (25.7-33.7); MCHC 33.2 g/dl (32.0-35.9); MEAN CELL VOLUME 86.3 fl (80-96); MEAN PLT VOLUME 8.2 fl (7.5-11.1); PLATELET COUNT 209 10^3/uL (134-434); RBC 3.07 M/mm3 (4.00-5.60); RDW 17.2 % (11.9-15.9); WHITE BLOOD COUNT 12.9 K/mm3 (4.0-10.0)
[2024-07-06 07:55] LABS: POTASSIUM 3.5 mmol/L (3.5-5.1)
[2024-07-06 07:58] LABS: CALCIUM 7.2 mg/dL (8.5-10.1)
[2024-07-06 07:59] LABS: ALBUMIN 2.1 g/dl (3.4-5.0); BLOOD UREA NITROGEN 24.4 mg/dL (7-18); MAGNESIUM 1.9 mg/dL (1.8-2.4)
[2024-07-06 08:03] LABS: BILIRUBIN,TOTAL 0.4 mg/dL (0.2-1); TOT PROT 5.2 g/dl (6.4-8.2)
[2024-07-06 08:12] LABS: LACTIC ACID 2.1 mmol/L (0.4-2.0)
[2024-07-06] MEDS: KCL 20 MEQ PREMIX BAG 20 MEQ/100 ML INFUS.BAG IVPB SCH ×2 (09:33→17:37)
[2024-07-06] MEDS: POTASSIUM PHOSPHATE 30 MM in SODIUM CHLORIDE 250 ML IVPB ONE (12:19)
[2024-07-06] MEDS: NAPH,MB-DB/K PH,MBDB POWDER PACKET PO SCH (15:50)
[2024-07-06] MEDS: VANCOMYCIN/WATER FOR INJ (PEG) 1,000 MG/200 ML BAG IVPB ONE (16:56)
[2024-07-06] MEDS: CEFTRIAXONE 2 GM-D5W BAG 2 GM/50 ML BAG IVPB SCH (18:06)
[2024-07-07 07:03] LABS: HEMATOCRIT 28.9 % (35.4-49); HEMOGLOBIN 9.4 GM/dL (11.7-16.9); MCH 28.7 pg (25.7-33.7); MCHC 32.7 g/dl (32.0-35.9); MEAN CELL VOLUME 87.9 fl (80-96); MEAN PLT VOLUME 8.7 fl (7.5-11.1); PLATELET COUNT 220 10^3/uL (134-434); RBC 3.28 M/mm3 (4.00-5.60); RDW 17.5 % (11.9-15.9); WHITE BLOOD COUNT 12.2 K/mm3 (4.0-10.0)
[2024-07-07 07:19] LABS: POTASSIUM 4.4 mmol/L (3.5-5.1)
[2024-07-07 07:24] LABS: ALBUMIN 2.4 g/dl (3.4-5.0); BLOOD UREA NITROGEN 27.6 mg/dL (7-18); MAGNESIUM 2.1 mg/dL (1.8-2.4)
[2024-07-07 07:27] LABS: BILIRUBIN,DIRECT 0.1 mg/dL (0.0-0.2); PHOSPHOROUS 1.2 mg/dL (2.5-4.9)
[2024-07-07 07:29] LABS: BILIRUBIN,TOTAL 0.3 mg/dL (0.2-1); TOT PROT 6.2 g/dl (6.4-8.2)
[2024-07-07 07:37] LABS: CALCIUM 8.3 mg/dL (8.5-10.1)
[2024-07-07] MEDS: ALBUTEROL SO4 2.5/IPRATROPIUM 0.5 INH SOL 3 ML VIAL.NEB. NEB PRN (09:54)
[2024-07-07 10:27] LABS: ANISOCYTOSIS 0; MACROCYTOSIS 0
[2024-07-07] MEDS: SODIUM PHOSPHATE - 45 MM in SODIUM CHLORIDE 500 ML IVPB ONE (11:35)
[2024-07-07] MEDS: VANCOMYCIN/WATER FOR INJ (PEG) 1,000 MG/200 ML BAG IVPB SCH (14:07)
[2024-07-07] MEDS: metoPROLOL SUCCINATE 25 MG TAB.SR.24H (FP) PO SCH (16:15)
[2024-07-07] MEDS: METOPROLOL TARTRATE 5 MG/5 ML VIAL IVPUSH ONE (16:58)
[2024-07-07] MEDS: HYDROmorphone HCl 2 MG/ML VIAL IVPUSH PRN (21:26)
[2024-07-08] MEDS ORDERED: HYDROmorphone HCL CARPU-JECT 2 MG/1 ML DISP.SYRIN ONE (06:31)
[2024-07-08 06:52] LABS: HEMATOCRIT 32.8 % (35.4-49); HEMOGLOBIN 10.5 GM/dL (11.7-16.9); MCH 28.5 pg (25.7-33.7); PLATELET COUNT 218 10^3/uL (134-434); RBC 3.69 M/mm3 (4.00-5.60); RDW 18.2 % (11.9-15.9); WHITE BLOOD COUNT 10.2 K/mm3 (4.0-10.0)
[2024-07-08 07:13] LABS: POTASSIUM 4.7 mmol/L (3.5-5.1)
[2024-07-08 07:19] LABS: ALBUMIN 2.5 g/dl (3.4-5.0); CALCIUM 8.2 mg/dL (8.5-10.1); MAGNESIUM 1.9 mg/dL (1.8-2.4)
[2024-07-08 07:22] LABS: CREATININE 0.9 mg/dL (0.55-1.3); PHOSPHOROUS 2.6 mg/dL (2.5-4.9)
[2024-07-08 07:23] LABS: BILIRUBIN,TOTAL 0.3 mg/dL (0.2-1)
[2024-07-08 07:25] LABS: TOT PROT 6.3 g/dl (6.4-8.2)
[2024-07-08] MEDS: FAMOTIDINE 20 MG TABLET PO SCH (09:24)
[2024-07-08] MEDS: HYDROmorphone HCL CARPU-JECT 2 MG/1 ML DISP.SYRIN IVPUSH PRN (09:25)
[2024-07-08] MEDS: FLUTICASONE/UMECLIDIN/VILANTER(200-62.5-25 TRELEGY ELLIPTA) INAHLER IH SCH (09:26)
[2024-07-08] MEDS: VANCOMYCIN ORAL SOLUTION 125 MG/2.5 ML PO SCH (12:28)
[2024-07-08] MEDS: ATORVASTATIN CA 40 MG TABLET (FP) PO SCH (21:10)
[2024-07-08] MEDS: APIXABAN 5 MG TABLET PO SCH (21:10)
[2024-07-08] MEDS ORDERED: APIXABAN 5 MG TABLET PO SCH (22:00)
[2024-07-09 06:51] LABS: BASO % 0.3 % (0-2.0); EOS % 1.7 % (0-4.5); HEMATOCRIT 33.6 % (35.4-49); HEMOGLOBIN 10.7 GM/dL (11.7-16.9); LYMPH % 11.5 % (8-40); MCH 28.7 pg (25.7-33.7); MCHC 31.9 g/dl (32.0-35.9); MEAN PLT VOLUME 8.7 fl (7.5-11.1); MONO % 8.2 % (3.8-10.2); NEUT % 78.3 % (42.8-82.8); PLATELET COUNT 179 10^3/uL (134-434); RBC 3.74 M/mm3 (4.00-5.60); RDW 18.4 % (11.9-15.9); WHITE BLOOD COUNT 10.8 K/mm3 (4.0-10.0)
[2024-07-09 07:07] LABS: ALBUMIN 2.2 g/dl (3.4-5.0); CALCIUM 8.1 mg/dL (8.5-10.1)
[2024-07-09 07:08] LABS: BLOOD UREA NITROGEN 24.1 mg/dL (7-18); MAGNESIUM 1.8 mg/dL (1.8-2.4)
[2024-07-09 07:11] LABS: CREATININE 0.9 mg/dL (0.55-1.3); PHOSPHOROUS 1.7 mg/dL (2.5-4.9)
[2024-07-09 07:12] LABS: BILIRUBIN,TOTAL 0.3 mg/dL (0.2-1); TOT PROT 5.8 g/dl (6.4-8.2)
[2024-07-09] MEDS ORDERED: ALBUTEROL SO4 0.083% IH SOL 2.5 MG/3 ML VIAL.NEB. NEB PRN (12:05)
[2024-07-09 13:23] VITALS: BMI 24.2
[2024-07-09] MEDS: VANCOMYCIN/WATER FOR INJ (PEG) 1,000 MG/200 ML BAG IVPB SCH (16:48)
[2024-07-09] MEDS: POTASSIUM PHOSPHATE 30 MM in SODIUM CHLORIDE 500 ML IVPB ONE (19:51)
[2024-07-09] MEDS ORDERED: HYDROmorphone HCL CARPU-JECT 2 MG/1 ML DISP.SYRIN IVPUSH PRN (22:37)
[2024-07-10] MEDS: HYDROmorphone HCl 2 MG/ML VIAL IVPUSH PRN (01:22)
[2024-07-10] MEDS: VANCOMYCIN ORAL SOLUTION 125 MG/2.5 ML PO SCH (02:39)
[2024-07-10] MEDS: VANCOMYCIN/WATER FOR INJ (PEG) 1,000 MG/200 ML BAG IVPB SCH (05:19)
[2024-07-10 08:57] LABS: POTASSIUM 4.3 mmol/L (3.5-5.1)
[2024-07-10 08:59] LABS: BASO % 0.5 % (0-2.0); EOS % 2.9 % (0-4.5); HEMATOCRIT 33.8 % (35.4-49); HEMOGLOBIN 10.8 GM/dL (11.7-16.9); LYMPH % 12.1 % (8-40); MCH 28.8 pg (25.7-33.7); MEAN PLT VOLUME 8.9 fl (7.5-11.1); MONO % 7.7 % (3.8-10.2); NEUT % 76.8 % (42.8-82.8); PLATELET COUNT 195 10^3/uL (134-434); RBC 3.76 M/mm3 (4.00-5.60); RDW 18.6 % (11.9-15.9); WHITE BLOOD COUNT 12.1 K/mm3 (4.0-10.0)
[2024-07-10 09:07] LABS: CALCIUM 8.2 mg/dL (8.5-10.1)
[2024-07-10 09:08] LABS: ALBUMIN 2.4 g/dl (3.4-5.0); BLOOD UREA NITROGEN 19.6 mg/dL (7-18); MAGNESIUM 1.8 mg/dL (1.8-2.4)
[2024-07-10] MEDS: APIXABAN 5 MG TABLET PO SCH (09:10)
[2024-07-10] MEDS: FAMOTIDINE 20 MG TABLET PO SCH (09:10)
[2024-07-10] MEDS: metoPROLOL SUCCINATE 25 MG TAB.SR.24H (FP) PO SCH (09:10)
[2024-07-10 09:11] LABS: CREATININE 0.9 mg/dL (0.55-1.3)
[2024-07-10] MEDS: CEFTRIAXONE 2 GM-D5W BAG 2 GM/50 ML BAG IVPB SCH (09:11)
[2024-07-10 09:12] LABS: BILIRUBIN,TOTAL 0.4 mg/dL (0.2-1)
[2024-07-10] MEDS: FLUTICASONE/UMECLIDIN/VILANTER(200-62.5-25 TRELEGY ELLIPTA) INAHLER IH SCH (09:52)
[2024-07-10] MEDS: ALBUTEROL SO4 0.083% IH SOL 2.5 MG/3 ML VIAL.NEB. NEB PRN (10:40)
[2024-07-10] MEDS: HYDROmorphone HCl 2 MG/ML VIAL IVPB PRN (19:46)
[2024-07-10] MEDS: ATORVASTATIN CA 40 MG TABLET (FP) PO SCH (21:22)
[2024-07-11 15:25] VITALS: RESP 18
[2024-07-11] MEDS: HYDROmorphone HCL CARPU-JECT 2 MG/1 ML DISP.SYRIN IVPUSH PRN (17:58)
[2024-07-12 09:23] LABS: POTASSIUM 4.1 mmol/L (3.5-5.1)
[2024-07-12 09:25] LABS: CALCIUM 8.2 mg/dL (8.5-10.1)
[2024-07-12 09:26] LABS: ALBUMIN 2.4 g/dl (3.4-5.0); BLOOD UREA NITROGEN 13.7 mg/dL (7-18)
[2024-07-12 09:29] LABS: CREATININE 0.9 mg/dL (0.55-1.3)
[2024-07-12 09:30] LABS: BILIRUBIN,TOTAL 0.7 mg/dL (0.2-1); TOT PROT 6.3 g/dl (6.4-8.2)
[2024-07-12 09:39] LABS: BASO % 0.4 % (0-2.0); EOS % 2.3 % (0-4.5); HEMATOCRIT 37.5 % (35.4-49); HEMOGLOBIN 11.9 GM/dL (11.7-16.9); LYMPH % 12.5 % (8-40); MCH 28.5 pg (25.7-33.7); MCHC 31.7 g/dl (32.0-35.9); MEAN CELL VOLUME 89.9 fl (80-96); MEAN PLT VOLUME 8.2 fl (7.5-11.1); MONO % 5.6 % (3.8-10.2); NEUT % 79.2 % (42.8-82.8); PLATELET COUNT 199 10^3/uL (134-434); RBC 4.17 M/mm3 (4.00-5.60); RDW 19.4 % (11.9-15.9); WHITE BLOOD COUNT 11.5 K/mm3 (4.0-10.0)
[2024-07-12 13:28] VITALS: BP 119/60; PULSE 67; TEMP 97.8
== END 2024-07-12 14:59 | disposition home or self-care (01) | DRG 871 ==
LOC: JER 07:01 → JERBED 08:57 → JICU 18:09 → J2W 07-07 12:09 → J8W 07-09 20:25
PROVIDERS: ADMIT Internal Medicine; ATTEND Family Medicine
PROC: 30233N1 Transfusion of Nonautologous Red Blood Cells into Peripheral Vein, Percutaneous Approach (ICD-10-PCS; principal; 2024-07-04)
DX: A41.9 Sepsis, unspecified organism (principal); J13 Pneumonia due to Streptococcus pneumoniae; R65.21 Severe sepsis with septic shock; I24.89 Other forms of acute ischemic heart disease; J96.11 Chronic respiratory failure with hypoxia; N17.9 Acute kidney failure, unspecified; E87.20 Acidosis, unspecified; E87.1 Hypo-osmolality and hyponatremia; I42.8 Other cardiomyopathies; I25.10 Atherosclerotic heart disease of native coronary artery without angina pectoris; I10 Essential (primary) hypertension; E78.5 Hyperlipidemia, unspecified; Z99.81 Dependence on supplemental oxygen; J44.9 Chronic obstructive pulmonary disease, unspecified; I48.0 Paroxysmal atrial fibrillation; K52.9 Noninfective gastroenteritis and colitis, unspecified; Z93.3 Colostomy status; D64.9 Anemia, unspecified; N40.0 Benign prostatic hyperplasia without lower urinary tract symptoms; E86.0 Dehydration; R74.8 Abnormal levels of other serum enzymes
CPT/HCPCS: 0241U-QW; 36415; 36430; 71045-TC-FY; 71250-TC; 74176-TC; 76700-TC; 80048; 80053; 80076; 81003; 82550; 82553; 82803; 82962; 83605; 83690; 83735; 83880; 84100; 84484; 85025; 85027; 85610; 85730; 86850; 86900; 86901; 86922; 87040; 87070; 87077; 87086; 87186; 87205; 87324; 87449; 87481; 87899; 93005; 93010; 93306-TC; 94640; 97116-GP; 97161-GP; 99291; 99292; G0480; J0131; J3490; P9058

== ENCOUNTER 2025-01-19 05:28 | Day surgery (SDC) | payer BC ==
[2025-01-15 16:46] VITALS: BMI 23.6
[2025-01-19] MEDS ORDERED: MIDAZOLAM HCL 2 MG/2 ML SINGLE DOSE VIAL ONE (12:34)
[2025-01-19] MEDS ORDERED: KETOROLAC TROMETHAMINE 30 MG/1 ML VIAL ONE (12:34)
[2025-01-19] MEDS ORDERED: ONDANSETRON 4 MG/2 ML VIAL ONE (12:34)
[2025-01-19] MEDS ORDERED: PROPOFOL 20 ML ONE (13:08)
[2025-01-19 13:41] VITALS: PULSE 68
[2025-01-19 14:06] VITALS: BP 120/70
[2025-01-19 14:31] VITALS: RESP 18; TEMP 98
== END 2025-01-19 14:37 | disposition home or self-care (01) ==
LOC: JASU-SURG 05:28
PROVIDERS: ATTEND Urology
PROC: 0TF3XZZ Fragmentation in Right Kidney Pelvis, External Approach (ICD-10-PCS; principal; 2025-01-19 13:00)
DX: N20.0 Calculus of kidney (principal)